=== PATIENT | male | born 1955 | race Two or more races ===

== ENCOUNTER 2020-05-15 09:10 | Inpatient (IN) | payer MEDICAID, OTHER ==
[~2020-05-15] VITALS: Ht 180.3 cm; Wt 84.6 kg
[2020-05-15] MEDS ORDERED: SODIUM CHLORIDE 0.9% 1,000 ML IV ONE (09:58)
[2020-05-15 10:44] LABS: Basophils # (auto) 0.1 10 ^3/uL (0-0.2); Basophils % (auto) 0.6 % (0.0-2.0); Eosinophils # (auto) 0 10 ^3/uL (0-0.8); Eosinophils % (auto) 0.5 % (0.0-7.0); Hematocrit 43.4 % (41.0-53.0); Hemoglobin 14.1 g/dL (13.5-17.5); Lymphocytes # (auto) 0.8 10 ^3/uL (0.4-5.4); Lymphocytes % (auto) 8.7 % (10.0-50.0); Mean Corpuscular Hemoglobin 30.1 pg (28.0-32.0); Mean Corpuscular Hgb Conc. 32.6 g/dL (32.0-36.0); Mean Corpuscular Volume 92.4 fL (80.0-100.0); Monocytes # (auto) 0.6 10 ^3/uL (0-1.3); Monocytes % (auto) 6.4 % (0.0-12.0); Neutrophils # (auto) 7.6 10 ^3/uL (1.6-8.6); Neutrophils % (auto) 83.8 % (37.0-80.0); Nucleated Red Blood Cells % 0.1 %; Platelet Count (auto) 156 10^3/uL (140-450); Red Cell Distribution Width 15.7 % (11.8-14.3); White Blood Cell 9.1 10^3/uL (4.4-10.8)
[2020-05-15 11:05] LABS: Albumin 3.3 g/dL (3.4-5.0); BUN/Creatinine Ratio 10.6; Calcium 8.6 mg/dL (8.5-10.1); Potassium 3.8 mmol/L (3.5-5.1)
[2020-05-15 11:10] LABS: Bilirubin, Total 0.7 mg/dL (0.2-1.0)
[2020-05-15 12:45] LABS: Urine WBC None Seen /hpf (0 - 3)
[2020-05-15 13:01] LABS: Urine Bacteria NONE SEEN /hpf (None Seen); Urine Blood Negative /uL (Negative); Urine Hyaline Cast FEW /lpf (0 - 2); Urine Specific Gravity 1.008 (1.001-1.035)
[2020-05-15] MEDS ORDERED: ASPirin 81 mg TAB PO ONE (13:30)
[2020-05-15] MEDS ORDERED: ENOXAPARIN SOD 80 MG/0.8ML SYRINGE SC ONE (13:30)
[2020-05-15] MEDS ORDERED: MORPHINE SULF INJ 2 MG/ML SYRINGE 1ML IV PRN ×2 (14:30→16:30)
[2020-05-15] MEDS ORDERED: NITROGLYCERIN 0.4 MG SL TAB SL PRN (14:30)
[2020-05-15] MEDS ORDERED: LABETALOL HCL 5 MG/ML 4ML SYRINGE IV ONE (16:15)
[2020-05-15] MEDS ORDERED: DEXTROSE (50%) 50ML SYRG IV PRN (16:30)
[2020-05-15] MEDS ORDERED: ONDANSETRON HCL 4 MG/2 ML VIAL IV PRN (16:30)
[2020-05-15] MEDS ORDERED: traMADol HCL 50 MG TAB PO PRN (16:30)
[2020-05-15] MEDS ORDERED: LACTULOSE 20Gm/30ML SOLN PO PRN (16:30)
[2020-05-15] MEDS ORDERED: TEMAZEPAM 15 MG CAP PO PRN (16:30)
[2020-05-15] MEDS ORDERED: CARVEDILOL 3.125 MG TAB PO ONE (16:30)
[2020-05-15 17:45] VITALS: BP 190/120
[2020-05-15 17:57] VITALS: BP 196/120
[2020-05-15] MEDS ORDERED: hydrALAZINE HCL 20 MG/ML VL IV ONE (18:00)
[2020-05-15] MEDS ORDERED: IBUP200T76 PO (18:18)
[2020-05-15] MEDS ORDERED: MULT-1018 PO (18:18)
[2020-05-15] MEDS: ACCU-CHEK COMFORT CURVE STRIP VI SCH ×2 (18:37→21:36)
[2020-05-15 18:44] VITALS: BP 177/79
--- NOTE | 2020-05-15 19:25 | NUR ---
OPENING SHIFT NOTE Assumed care of patient who is A&O x4. Currently on RA with no s/s of distress. reports headache at this time. Pain management options discussed. PIV in left forearm is intact and patent. Flushed with 10ml NS. Patient is ambulatory without the use of assistive devices at baseline. Bed is in low locked position with side rails up x2. Call light is within reach and patient encouraged to call for assistance when needed. Will continue to monitor for changes PRN.
[2020-05-15 20:00] VITALS: BP 182/90
[2020-05-15] MEDS: ACETAMINOPHEN 500 MG TAB PO PRN (20:32)
[2020-05-15] MEDS: CARVEDILOL 3.125 MG TAB PO SCH (20:32)
[2020-05-15] MEDS: SODIUM CHLOR 0.9% PF (SALINE LOCK) 10ML VIAL/SYR IV SCH (21:26)
[2020-05-15 21:30] VITALS: BP 182/90
[2020-05-15] MEDS ORDERED: ATORVASTATIN 20 MG TAB PO SCH (22:00)
--- NOTE | 2020-05-16 02:54 | NUR ---
URINE SENT TO LAB VIA BULLET SYSTEM.
[2020-05-16 05:02] VITALS: BP 149/101
[2020-05-16] MEDS: SODIUM CHLOR 0.9% PF (SALINE LOCK) 10ML VIAL/SYR IV SCH ×3 (06:00→22:05)
[2020-05-16 06:18] LABS: Basophils # (auto) 0 10 ^3/uL (0-0.2); Basophils % (auto) 0.6 % (0.0-2.0); Eosinophils # (auto) 0.2 10 ^3/uL (0-0.8); Eosinophils % (auto) 2.7 % (0.0-7.0); Hematocrit 44.4 % (41.0-53.0); Hemoglobin 14.7 g/dL (13.5-17.5); Lymphocytes # (auto) 1.3 10 ^3/uL (0.4-5.4); Lymphocytes % (auto) 20.8 % (10.0-50.0); Mean Corpuscular Hemoglobin 30.5 pg (28.0-32.0); Mean Corpuscular Hgb Conc. 33.2 g/dL (32.0-36.0); Mean Corpuscular Volume 91.7 fL (80.0-100.0); Monocytes # (auto) 0.6 10 ^3/uL (0-1.3); Neutrophils # (auto) 4.1 10 ^3/uL (1.6-8.6); Neutrophils % (auto) 66.9 % (37.0-80.0); Nucleated Red Blood Cells % 0.1 %; Platelet Count (auto) 158 10^3/uL (140-450); Red Blood Cells 4.84 10^6/uL (4.5-5.90); Red Cell Distribution Width 15.5 % (11.8-14.3); White Blood Cell 6.2 10^3/uL (4.4-10.8)
[2020-05-16 06:37] LABS: Calcium 8.6 mg/dL (8.5-10.1); Potassium 3.7 mmol/L (3.5-5.1)
[2020-05-16] MEDS: ACCU-CHEK COMFORT CURVE STRIP VI SCH ×4 (06:42→22:08)
[2020-05-16 06:43] LABS: Albumin 3.5 g/dL (3.4-5.0); Magnesium 2.6 mg/dL (1.6-2.6); Phosphorus 3.3 mg/dL (2.5-4.90); Total Protein 7.4 g/dL (6.4-8.2); Uric Acid 9.7 mg/dL (3.5-7.2)
[2020-05-16 07:56] VITALS: BP 162/85
[2020-05-16 09:00] VITALS: BP 162/97
[2020-05-16] MEDS: ASPirin 81 mg TAB PO SCH (09:35)
[2020-05-16] MEDS: ENOXAPARIN SOD 40 MG/0.4 ML SYRINGE SC SCH (09:36)
[2020-05-16] MEDS: CARVEDILOL 3.125 MG TAB PO SCH (09:36)
[2020-05-16] MEDS: hydrALAZINE HCL 20 MG/ML VL IV PRN ×3 (09:37→22:10)
[2020-05-16] MEDS: NITROGLYCERIN 0.2MG/HR TOPICAL PATCH TD SCH (09:37)
[2020-05-16] MEDS ORDERED: FUROSEMIDE 20 MG/2 ML VIAL IV ONE (11:15)
[2020-05-16] MEDS ORDERED: CLOPIDOGREL BISULFATE 75 MG TAB PO ONE (11:15)
--- NOTE | 2020-05-16 12:31 | NUR ---
OPENING SHIFT NOTE: PATIENT AWAKE IN BED, AMBULATED TO BATHROOM. UPDATED ON PLAN OF CARE. A/OX4. RESPIRATIONS EVEN AND UNLABORED. DENIES ANY PAIN OR DISCOMFORT AT THIS TIME. WILL CONTINUE TO MONITOR.
--- NOTE | 2020-05-16 12:34 | NUR ---
CALL FROM MD CORDOVA, UPDATED ON PLAN OF CARE.
[2020-05-16 13:00] VITALS: BP 153/96
[2020-05-16 17:00] VITALS: BP 156/100
--- NOTE | 2020-05-16 17:20 | NUR ---
CALL MADE TO MD Stefania SPENCER TO NOTIFY OF BP.
--- NOTE | 2020-05-16 17:53 | NUR ---
CALL BACK FROM Stefania SPENCER: ORDERS RECEIVED.
[2020-05-16] MEDS: FUROSEMIDE 20 MG/2 ML VIAL IV SCH (18:31)
[2020-05-16] MEDS: amLODIPine BESYLATE 5 MG TAB PO SCH (19:09)
--- NOTE | 2020-05-16 19:10 | NUR ---
Opening Shift Note Assumed care of patient, awake and alert and talkative. No S/S of distress/SOB and denies discomfort and pain. Instructed on POC and to call for assist PRN by second RN able to converse in German; Pt LYNDSEY. This RN will continue to monitor for changes Q1hr and PRN. Bed in low position with HOB in semi-White's position. Nurse call light at pt's side.
--- NOTE | 2020-05-16 19:10 | NUR ---
CARE ENDORSED TO NOC RN.
[2020-05-16] MEDS: CARVEDILOL 12.5 MG TAB PO SCH (22:07)
[2020-05-16] MEDS: ATORVASTATIN 20 MG TAB PO SCH (22:07)
[2020-05-16] MEDS: POTASSIUM CHL 20 Meq TABLET PO SCH (22:07)
[2020-05-16] MEDS: FAMOTIDINE 20 MG TAB PO SCH (22:08)
[2020-05-16] MEDS: ACETAMINOPHEN 500 MG TAB PO PRN (22:11)
[2020-05-16 23:13] VITALS: BP 175/100
[2020-05-17 05:17] VITALS: BP 111/67
[2020-05-17] MEDS: ACCU-CHEK COMFORT CURVE STRIP VI SCH ×4 (06:04→23:07)
[2020-05-17] MEDS: FUROSEMIDE 20 MG/2 ML VIAL IV SCH ×2 (06:29→18:00)
[2020-05-17] MEDS: SODIUM CHLOR 0.9% PF (SALINE LOCK) 10ML VIAL/SYR IV SCH ×3 (06:29→23:06)
[2020-05-17 07:07] LABS: Basophils # (auto) 0 10 ^3/uL (0-0.2); Basophils % (auto) 0.5 % (0.0-2.0); Eosinophils # (auto) 0.2 10 ^3/uL (0-0.8); Eosinophils % (auto) 2.1 % (0.0-7.0); Hematocrit 47.4 % (41.0-53.0); Hemoglobin 15.7 g/dL (13.5-17.5); Lymphocytes # (auto) 1.3 10 ^3/uL (0.4-5.4); Lymphocytes % (auto) 18.1 % (10.0-50.0); Mean Corpuscular Hemoglobin 30.2 pg (28.0-32.0); Mean Corpuscular Hgb Conc. 33.2 g/dL (32.0-36.0); Monocytes # (auto) 0.7 10 ^3/uL (0-1.3); Monocytes % (auto) 9.2 % (0.0-12.0); Neutrophils # (auto) 5.1 10 ^3/uL (1.6-8.6); Neutrophils % (auto) 70.1 % (37.0-80.0); Nucleated Red Blood Cells % 0.1 %; Platelet Count (auto) 213 10^3/uL (140-450); Red Blood Cells 5.21 10^6/uL (4.5-5.90); Red Cell Distribution Width 15.6 % (11.8-14.3); White Blood Cell 7.3 10^3/uL (4.4-10.8)
[2020-05-17 07:09] LABS: Calcium 9.1 mg/dL (8.5-10.1)
[2020-05-17 07:16] LABS: BUN/Creatinine Ratio 16.5
[2020-05-17 08:45] VITALS: BP 128/82
[2020-05-17] MEDS: NITROGLYCERIN 0.2MG/HR TOPICAL PATCH TD SCH (09:57)
[2020-05-17] MEDS: ASPirin 81 mg TAB PO SCH (10:20)
[2020-05-17] MEDS: amLODIPine BESYLATE 5 MG TAB PO SCH (10:21)
[2020-05-17] MEDS: CARVEDILOL 12.5 MG TAB PO SCH ×2 (10:21→23:06)
[2020-05-17] MEDS: ACETYLCYSTEINE ORAL for CIN 20%(200MG/ML) 4ML PO SCH ×2 (10:21→22:00)
[2020-05-17] MEDS: POTASSIUM CHL 20 Meq TABLET PO SCH ×2 (10:21→23:06)
[2020-05-17] MEDS: CLOPIDOGREL BISULFATE 75 MG TAB PO SCH (10:22)
[2020-05-17] MEDS: ENOXAPARIN SOD 40 MG/0.4 ML SYRINGE SC SCH (10:22)
[2020-05-17] MEDS: FAMOTIDINE 20 MG TAB PO SCH ×2 (10:22→23:07)
--- NOTE | 2020-05-17 12:32 | NUR ---
AFTERNOON BP:175/74 MD Orlando SAN MADE AWARE. ORDER FOR O.2 CLONIDINE P.O Q6HR RECEIVED. Addendum: 05/17/20 at 1235 by JL GALLOWAY RN RN -MISTAKEN ENTRY-
[2020-05-17 12:42] VITALS: BP 115/76
[2020-05-17] MEDS ORDERED: cloNIDine HCL 0.1 MG TAB PO PRN (12:45)
[2020-05-17 17:00] VITALS: BP 112/77
--- NOTE | 2020-05-17 19:14 | NUR ---
CARE ENDORSED TO NOC RN.
[2020-05-17 22:00] VITALS: BP 131/88
[2020-05-17] MEDS: ATORVASTATIN 20 MG TAB PO SCH (23:07)
[2020-05-18 05:30] VITALS: BP 118/65
[2020-05-18] MEDS: FUROSEMIDE 20 MG/2 ML VIAL IV SCH ×2 (06:00→18:33)
[2020-05-18] MEDS: SODIUM CHLOR 0.9% PF (SALINE LOCK) 10ML VIAL/SYR IV SCH ×3 (06:00→22:01)
[2020-05-18 06:21] LABS: Basophils # (auto) 0.1 10 ^3/uL (0-0.2); Basophils % (auto) 0.7 % (0.0-2.0); Eosinophils # (auto) 0.2 10 ^3/uL (0-0.8); Eosinophils % (auto) 2.5 % (0.0-7.0); Hematocrit 46.4 % (41.0-53.0); Hemoglobin 15.3 g/dL (13.5-17.5); Lymphocytes # (auto) 1.6 10 ^3/uL (0.4-5.4); Lymphocytes % (auto) 21.6 % (10.0-50.0); Mean Corpuscular Hemoglobin 30.1 pg (28.0-32.0); Mean Corpuscular Volume 91.2 fL (80.0-100.0); Monocytes # (auto) 0.7 10 ^3/uL (0-1.3); Monocytes % (auto) 8.9 % (0.0-12.0); Neutrophils % (auto) 66.3 % (37.0-80.0); Nucleated Red Blood Cells % 0.1 %; Platelet Count (auto) 201 10^3/uL (140-450); Red Blood Cells 5.09 10^6/uL (4.5-5.90); Red Cell Distribution Width 15.7 % (11.8-14.3); White Blood Cell 7.5 10^3/uL (4.4-10.8)
[2020-05-18 06:40] LABS: Calcium 9.1 mg/dL (8.5-10.1); Potassium 4.1 mmol/L (3.5-5.1)
[2020-05-18 06:41] LABS: INR 1.13 (0.9-1.15); Partial Thromboplastin Time 30.5 sec (23.64-32.05)
[2020-05-18] MEDS: ACCU-CHEK COMFORT CURVE STRIP VI SCH ×4 (06:52→22:03)
[2020-05-18] MEDS: ENOXAPARIN SOD 40 MG/0.4 ML SYRINGE SC SCH (07:38)
--- NOTE | 2020-05-18 08:22 | NUR ---
Patient left to veterinarian laboratory animal care.
[2020-05-18 08:28] VITALS: BP 123/80
[2020-05-18] MEDS ORDERED: LIDOCAINE 2%HCL (LOCAL ANESTH.) INJ 20ML MDV ONE (08:54)
[2020-05-18] MEDS ORDERED: IODIXANOL 320MG/ML 100ML BTL IV ONE ×2 (08:54→09:11)
[2020-05-18] MEDS ORDERED: VERAPAMIL 2.5MG/ML INJ 2ML VIAL IV ONE (09:09)
[2020-05-18] MEDS ORDERED: ANGIOMAX 250 MG VIAL IV ONE (09:09)
[2020-05-18] MEDS ORDERED: HEPARIN SODIUM (PORCINE) 5000 UNITS/ML 1ML VIAL ONE (09:09)
[2020-05-18] MEDS ORDERED: fentaNYL CITRATE 100 MCG/2 ML VL ONE (09:10)
[2020-05-18] MEDS ORDERED: SODIUM CHL 0.9% 50 ML ONE (09:10)
[2020-05-18] MEDS ORDERED: MIDAZOLAM HCL 1MG/1ML-2 ML VIAL ONE (09:10)
[2020-05-18] MEDS ORDERED: CLOPIDOGREL BISULFATE 75 MG TAB ONE (09:48)
[2020-05-18] MEDS ORDERED: ASPirin 81 mg TAB ONE (09:49)
[2020-05-18] MEDS: ASPirin 81 mg TAB PO SCH (10:00)
[2020-05-18] MEDS: NITROGLYCERIN 0.2MG/HR TOPICAL PATCH TD SCH (10:00)
[2020-05-18] MEDS: CLOPIDOGREL BISULFATE 75 MG TAB PO SCH (10:00)
[2020-05-18] MEDS ORDERED: FURO1TAB31 PO (10:50)
[2020-05-18] MEDS ORDERED: ASPI81CH43 PO (10:50)
[2020-05-18] MEDS ORDERED: CLOP75TA28 PO (10:50)
[2020-05-18] MEDS ORDERED: AML5T PO (10:50)
[2020-05-18] MEDS ORDERED: ATOR20TA50 PO (10:50)
[2020-05-18] MEDS ORDERED: CAR125T PO (10:50)
[2020-05-18] MEDS ORDERED: POTA-220 PO (10:50)
--- NOTE | 2020-05-18 11:00 | NUR ---
Per Sabra BATTING MACHINE OPERATOR INSULATION, Patient has to monitor over night.
--- NOTE | 2020-05-18 11:15 | NUR ---
Patient came back from paper slitter, awake, alert and verbally response. No respiratory distress noted. Skin is warm and dry to touch. S/P LHC, accessed to right wrist with vac band on it. Will continue to monitor. Denied any pain at this time. Placed a call light within reach.
[2020-05-18] MEDS: CARVEDILOL 12.5 MG TAB PO SCH ×2 (11:26→22:01)
[2020-05-18] MEDS: POTASSIUM CHL 20 Meq TABLET PO SCH ×2 (11:26→22:02)
[2020-05-18] MEDS: amLODIPine BESYLATE 5 MG TAB PO SCH (11:26)
[2020-05-18] MEDS: FAMOTIDINE 20 MG TAB PO SCH ×2 (11:27→22:03)
[2020-05-18] MEDS: ACETYLCYSTEINE ORAL for CIN 20%(200MG/ML) 4ML PO SCH ×2 (11:32→22:02)
--- NOTE | 2020-05-18 12:24 | NUR ---
Received a call from Sabra COOK stated patient is cleared from Dr. Vazquez (Cardiology) standpoint.
[2020-05-18 12:56] VITALS: BP 123/90
--- NOTE | 2020-05-18 14:00 | NUR ---
EEG COMPLETED AT BEDSIDE. PRIMARY RN CHELSEA KHALIL.
[2020-05-18] MEDS ORDERED: SODIUM CHLORIDE 0.9% 500 ML IV ONE (14:15)
--- NOTE | 2020-05-18 14:28 | NUR ---
Dr. Mendiola pagesergio for DC clearance, spoke to Asa. Awaiting to call back.
--- NOTE | 2020-05-18 14:29 | NUR ---
Dr. Shook paged regarding DC clearance. Awaiting to call back.
--- NOTE | 2020-05-18 14:30 | NUR ---
Pt declined PT tx citing fatigue. Addendum: 05/18/20 at 1620 by Jackson Reilly BAKER BREAD Amended: Links added.
--- NOTE | 2020-05-18 14:35 | NUR ---
Received a call from Dr. Mendiola stated patient needs to be monitor for BUN and CR , will recheck labs tomorrow.
[2020-05-18] MEDS ORDERED: SODIUM CHLORIDE 0.9% 1,000 ML IV ONE (14:45)
[2020-05-18] MEDS ORDERED: FUROSEMIDE 40 MG/4 ML VIAL IV ONE (14:45)
--- NOTE | 2020-05-18 16:06 | NUR ---
Nutrition Assessment Notes Please refer to link for full assessment notes. Est Energy needs: 8731-4224 kcals (20-23 kcal/kgBW) Est Protein needs: 84-92 gms/day (1.0-1.1 gm/kgBW) Will continue to monitor and reassess prn. Addendum: 05/18/20 at [address] Amended: Links added. Addendum: 05/18/20 at [address] Please note corrected est Protein needs: 50-63 gms/day (0.6-0.75 g/kgBW)
--- NOTE | 2020-05-18 16:45 | NUR ---
Medication delivered at bedside by [facility] pharmacy.
[2020-05-18 17:00] VITALS: BP 123/88
--- NOTE | 2020-05-18 19:21 | NUR ---
Opening Shift Note Assumed care of patient after receiving report from GIL Hayes. Patient is awake and alert with no S/S of distress/SOB or pain. Call light within reach, bed in lowest locked position x2 side rails. Instructed on POC and to call for assist PRN, will continue to monitor for changes Q1hr and PRN.
[2020-05-18 21:56] VITALS: BP 132/71
[2020-05-18] MEDS: ATORVASTATIN 20 MG TAB PO SCH (22:02)
--- NOTE | 2020-05-18 22:40 | NUR ---
Riley BARAHONA at bedside Dr. Lin at bedside speaking with patient regarding EEG. Per Dr. Lin, patient is not cleared from Neuro standpoint to discharge and will need to stay in hospital and repeat EEG.
--- NOTE | 2020-05-19 00:26 | NUR ---
Spoke with Nicole BARAHONA regarding patients continued stay. Updated doctor on neuro not clearing patient for discharge and wanting a repeat EEG.
[2020-05-19 05:00] VITALS: BP 124/60
[2020-05-19] MEDS: SODIUM CHLOR 0.9% PF (SALINE LOCK) 10ML VIAL/SYR IV SCH ×3 (06:07→21:26)
[2020-05-19] MEDS: FUROSEMIDE 20 MG/2 ML VIAL IV SCH ×3 (06:07→18:49)
[2020-05-19 06:27] LABS: Basophils # (auto) 0 10 ^3/uL (0-0.2); Basophils % (auto) 0.5 % (0.0-2.0); Eosinophils # (auto) 0.2 10 ^3/uL (0-0.8); Eosinophils % (auto) 1.8 % (0.0-7.0); Hematocrit 49.9 % (41.0-53.0); Hemoglobin 16.8 g/dL (13.5-17.5); Lymphocytes # (auto) 1.6 10 ^3/uL (0.4-5.4); Lymphocytes % (auto) 16.1 % (10.0-50.0); Mean Corpuscular Hemoglobin 30.8 pg (28.0-32.0); Mean Corpuscular Hgb Conc. 33.6 g/dL (32.0-36.0); Mean Corpuscular Volume 91.6 fL (80.0-100.0); Monocytes # (auto) 0.7 10 ^3/uL (0-1.3); Monocytes % (auto) 7.2 % (0.0-12.0); Neutrophils # (auto) 7.2 10 ^3/uL (1.6-8.6); Neutrophils % (auto) 74.4 % (37.0-80.0); Nucleated Red Blood Cells % 0.1 %; Platelet Count (auto) 234 10^3/uL (140-450); Red Blood Cells 5.44 10^6/uL (4.5-5.90); White Blood Cell 9.6 10^3/uL (4.4-10.8)
[2020-05-19] MEDS: ACCU-CHEK COMFORT CURVE STRIP VI SCH ×4 (06:38→21:50)
[2020-05-19 06:50] LABS: Calcium 9.6 mg/dL (8.5-10.1); Potassium 4.3 mmol/L (3.5-5.1)
[2020-05-19 06:52] LABS: BUN/Creatinine Ratio 19.9
--- NOTE | 2020-05-19 08:46 | NUR ---
Per Abhi HARDEN, patient does not qualify for PT, order discontinue per protocol.
[2020-05-19] MEDS: ENOXAPARIN SOD 40 MG/0.4 ML SYRINGE SC SCH (09:12)
[2020-05-19] MEDS: CLOPIDOGREL BISULFATE 75 MG TAB PO SCH (09:12)
[2020-05-19] MEDS: ASPirin 81 mg TAB PO SCH (09:12)
[2020-05-19] MEDS: amLODIPine BESYLATE 5 MG TAB PO SCH (09:13)
[2020-05-19] MEDS: NITROGLYCERIN 0.2MG/HR TOPICAL PATCH TD SCH (09:13)
[2020-05-19] MEDS: CARVEDILOL 12.5 MG TAB PO SCH ×2 (09:13→21:42)
[2020-05-19] MEDS: FAMOTIDINE 20 MG TAB PO SCH ×2 (09:15→21:28)
[2020-05-19] MEDS: POTASSIUM CHL 20 Meq TABLET PO SCH ×2 (09:15→21:28)
[2020-05-19 10:00] VITALS: BP 109/74
--- NOTE | 2020-05-19 11:27 | NUR ---
Assessment Patient is a 65- year-old male who is alert and oriented. Prior to admission patient lived home with family and function independently. Per patient he can care for her own ADLs. Per patient he does not have any medical equipment now. Per patient he will return to his prior living arrangements post discharge and family will transport him home. Patient PCP is Dr. Golden. Advise patient there is a social service consult for home health safety evaluation. Informed patient clinical information will be faxed to [employer] the [facility]. Informed patient he has the right to participate in all discharge planning. Patient verbalized understanding and agreed to discharge plan. Faxed clinical information to [employer] the [facility] and [facility]. Per Carole with [email or web address] [phone] patient has been accepted and service to start within 24-48hrs upon d/c day. Addendum: 05/19/20 at 1129 by ALY HARDEN Amended: Links added.
[2020-05-19 12:00] LABS: Urine WBC None Seen /hpf (0 - 3)
--- NOTE | 2020-05-19 12:12 | NUR ---
UA sent to the lab.
[2020-05-19] MEDS: SODIUM CHLORIDE 0.9% 1,000 ML IV SCH (12:13)
[2020-05-19 12:14] LABS: Urine Bacteria NONE SEEN /hpf (None Seen); Urine Blood Negative /uL (Negative)
[2020-05-19 12:51] VITALS: BP 112/69
--- NOTE | 2020-05-19 13:37 | NUR ---
Obtain authorization from [facility] for [facility] [id number].
--- NOTE | 2020-05-19 14:49 | NUR ---
Called MRI regarding MRI brain have to be read. Tech made aware.
--- NOTE | 2020-05-19 15:11 | NUR ---
MRI brain resulted. Placed in the chart.
--- NOTE | 2020-05-19 15:47 | NUR ---
Left a message to Dr. Alanna Domingo regarding patient's daughter wants to get an update.
--- NOTE | 2020-05-19 16:45 | NUR ---
Informed CN, regarding unable to get IV, need a new one. CN aware, will come.
[2020-05-19 17:11] VITALS: BP 120/65
[2020-05-19 17:19] LABS: BUN/Creatinine Ratio 20.5; Calcium 9.3 mg/dL (8.5-10.1); Potassium 4.5 mmol/L (3.5-5.1)
--- NOTE | 2020-05-19 19:10 | NUR ---
Opening Shift Note Assumed care of patient after receiving report from niraj Hayes RN. Patient is awake and alert with no S/S of distress/SOB or pain. Call light within reach, bed in lowest locked position x2 side rails, HOB flat with patient resting on side. Instructed on POC and to call for assist PRN, will continue to monitor for changes Q1hr and PRN.
[2020-05-19] MEDS: ATORVASTATIN 20 MG TAB PO SCH (21:28)
--- NOTE | 2020-05-19 21:34 | NUR ---
Riley at bedside Riley BARAHONA at bedside with patient reviewing EEG. Updated Riley that MRI report in chart.
--- NOTE | 2020-05-19 21:45 | NUR ---
Moqattash rounding on patient.
[2020-05-19 22:00] VITALS: BP 151/96
--- NOTE | 2020-05-20 01:34 | NUR ---
IV DC'd Patient pump was alarming, checked on alarm and patient. IV to the right forearm was pulled out, IV got caught as patient moved and was dislodged. No trauma to site noted.
--- NOTE | 2020-05-20 01:37 | NUR ---
IV insertion After explaining to patient via sailing officer, need for IV access, patient verbalized understanding and allowed placement. IV access obtained, via clean sterile technique by inserting 22 gauge catheter at the right forearm after 1 attempt. IV secured properly. No trauma to site. Patient tolerated well.
[2020-05-20 05:00] VITALS: BP 136/94
[2020-05-20 05:09] LABS: Basophils # (auto) 0 10 ^3/uL (0-0.2); Basophils % (auto) 0.5 % (0.0-2.0); Eosinophils # (auto) 0.1 10 ^3/uL (0-0.8); Eosinophils % (auto) 1.6 % (0.0-7.0); Hematocrit 46.7 % (41.0-53.0); Hemoglobin 15.8 g/dL (13.5-17.5); Lymphocytes # (auto) 1.4 10 ^3/uL (0.4-5.4); Mean Corpuscular Hemoglobin 30.6 pg (28.0-32.0); Mean Corpuscular Hgb Conc. 33.8 g/dL (32.0-36.0); Mean Corpuscular Volume 90.5 fL (80.0-100.0); Monocytes # (auto) 0.7 10 ^3/uL (0-1.3); Monocytes % (auto) 8.7 % (0.0-12.0); Neutrophils % (auto) 72.2 % (37.0-80.0); Nucleated Red Blood Cells % 0.1 %; Platelet Count (auto) 204 10^3/uL (140-450); Red Blood Cells 5.16 10^6/uL (4.5-5.90); Red Cell Distribution Width 15.3 % (11.8-14.3); White Blood Cell 8.4 10^3/uL (4.4-10.8)
[2020-05-20 05:29] LABS: Calcium 9.1 mg/dL (8.5-10.1); Potassium 4.1 mmol/L (3.5-5.1)
[2020-05-20 05:30] LABS: BUN/Creatinine Ratio 20.5
[2020-05-20] MEDS: FUROSEMIDE 20 MG/2 ML VIAL IV SCH (06:00)
[2020-05-20] MEDS: SODIUM CHLOR 0.9% PF (SALINE LOCK) 10ML VIAL/SYR IV SCH ×2 (06:00→14:00)
[2020-05-20] MEDS: ACCU-CHEK COMFORT CURVE STRIP VI SCH ×3 (06:01→17:00)
[2020-05-20] MEDS: SODIUM CHLORIDE 0.9% 1,000 ML IV SCH (06:02)
--- NOTE | 2020-05-20 08:00 | NUR ---
OPENING SHIFT NOTE ASSUMED CARE OF PATIENT AWAKE AND AGITATED. PATIENT IS FULLY DRESSED AND STATING THAT HE IS GOING HOME. EXPLAINED TO PATIENT THAT THERE IS NO ORDER FOR DISCHARGE AND THAT HE NEEDS TO WAIT FOR THE DOCTOR. PATIENT STATING HE WANTS TO GO HOME NOW. EXPLAINED THE IMPORTANCE OF HIM WAITING FOR A PRESCRIPTION TO MAINTAIN HIS NEWLY PLACED STENT. PATIENT IS UNSATISFIED WITH THIS. BED IS IN LOWEST, LOCKED POSITION WITH SIDE RAILS UP X2 AND CALL LIGHT WITHIN REACH. WILL CONTINUE TO MONITOR Q1H AND PRN.
[2020-05-20 09:00] VITALS: BP 158/81
[2020-05-20] MEDS: amLODIPine BESYLATE 5 MG TAB PO SCH (09:36)
[2020-05-20] MEDS: CARVEDILOL 12.5 MG TAB PO SCH (09:36)
[2020-05-20] MEDS: ASPirin 81 mg TAB PO SCH (09:36)
[2020-05-20] MEDS: FAMOTIDINE 20 MG TAB PO SCH (09:36)
[2020-05-20] MEDS: POTASSIUM CHL 20 Meq TABLET PO SCH (09:36)
[2020-05-20] MEDS: ENOXAPARIN SOD 40 MG/0.4 ML SYRINGE SC SCH (09:37)
[2020-05-20] MEDS: CLOPIDOGREL BISULFATE 75 MG TAB PO SCH (09:37)
[2020-05-20] MEDS: NITROGLYCERIN 0.2MG/HR TOPICAL PATCH TD SCH (09:37)
--- NOTE | 2020-05-20 10:19 | NUR ---
FAMILY RECEIVED CALL FROM DAUGHTER WENCESLAO. SHE IS DEMANDING TO KNOW WHAT TIME THE DOCTOR WILL ROUND TO DISCHARGE HER FATHER. EXPLAINED TO HER THAT THE DOCTORS HAVE NO SET TIMES TO ROUND AND THAT I WOULD NOTIFY HER SOON DISCHARGE ORDERS ARE PLACED. SHE STATES "WELL JUST SO YOU KNOW WE ARE GIVING THE DOCTOR A CHANCE AND I WILL BE CALLING YOU BACK IN THE AFTERNOON AND YOU BETTER HAVE THE PAPERWORK READY FOR HIM TO LEAVE." EXPLAINED RISKS AND BENEFITS OF LEAVING AMA TO WHICH SHE WAS UNRECEPTIVE TO. WILL CONTINUE CARE.
--- NOTE | 2020-05-20 11:39 | NUR ---
PAGED PAGE OUT TO DR SPENCER FOR DISCHARGE ORDERS. AWAITING CALL BACK. WILL CONTINUE CARE.
[2020-05-20 12:56] VITALS: BP 129/72
--- NOTE | 2020-05-20 16:28 | NUR ---
DISCHARGE CLEARANCE THIS RN OBTAINED DISCHARGE CLEARANCE FROM DR KELLEY, DR REDMOND, DR VALLEJO, AND JOYCE PÉREZ. DR Jose L SPENCER PAGED FOR DISCHARGE ORDERS.
[2020-05-20 17:00] VITALS: BP 141/79
[2020-05-20 19:34] VITALS: BP 129/72
== END 2020-05-20 20:05 | disposition home or self-care (01) | DRG 174 ==
LOC: ER 09:10 → EDBD 09:10 → TELE-WESTW 09:11
PROVIDERS: ADMIT Internal Medicine; ATTEND Internal Medicine
PROC: 027034Z Dilation of Coronary Artery, One Artery with Drug-eluting Intraluminal Device, Percutaneous Approach (ICD-10-PCS; principal; 2020-05-18)
PROC: 4A023N7 Measurement of Cardiac Sampling and Pressure, Left Heart, Percutaneous Approach (ICD-10-PCS; 2020-05-18)
PROC: B211YZZ Fluoroscopy of Multiple Coronary Arteries using Other Contrast (ICD-10-PCS; 2020-05-18)
PROC: B215YZZ Fluoroscopy of Left Heart using Other Contrast (ICD-10-PCS; 2020-05-18)
DX: I21.4 Non-ST elevation (NSTEMI) myocardial infarction (principal); I63.9 Cerebral infarction, unspecified; E78.5 Hyperlipidemia, unspecified; E11.51 Type 2 diabetes mellitus with diabetic peripheral angiopathy without gangrene; N18.3 Chronic kidney disease, stage 3 (moderate); I50.31 Acute diastolic (congestive) heart failure; I13.0 Hypertensive heart and chronic kidney disease with heart failure and stage 1 through stage 4 chronic kidney disease, or unspecified chronic kidney disease; G93.1 Anoxic brain damage, not elsewhere classified; G93.89 Other specified disorders of brain; N17.0 Acute kidney failure with tubular necrosis; G93.41 Metabolic encephalopathy; E11.22 Type 2 diabetes mellitus with diabetic chronic kidney disease; E11.42 Type 2 diabetes mellitus with diabetic polyneuropathy; E86.0 Dehydration; F17.200 Nicotine dependence, unspecified, uncomplicated; I25.10 Atherosclerotic heart disease of native coronary artery without angina pectoris; I87.2 Venous insufficiency (chronic) (peripheral); E07.9 Disorder of thyroid, unspecified; R56.9 Unspecified convulsions; Z79.82 Long term (current) use of aspirin; Z79.899 Other long term (current) drug therapy; Z86.73 Personal history of transient ischemic attack (TIA), and cerebral infarction without residual deficits; Z91.19 Patient's noncompliance with other medical treatment and regimen
CPT/HCPCS: 36415; 70450; 70551; 71045; 76775; 80048; 80053; 80061; 81001; 82043; 82306; 82550; 82570; 82962; 83036; 83735; 83880; 83935; 84100; 84300; 84439; 84443; 84484; 84550; 85025; 85610; 85652; 85730; 86141; 92928; 93005; 93306; 93458; 93886; 93926; 95819; 96361; 96372; 96374; 97110; 97116; 97163; 97530; 99152; 99153; A4565; C1874; C1887; G0378; J2250; J3490; Q9967

== ENCOUNTER 2020-11-12 19:24 | Emergency (ER) | payer MEDICAID ==
[~2020-11-12] VITALS: Ht 182.9 cm; Wt 81.6 kg
[~2020-11-12 19:24] MED LIST: AML5T PO; ASPI81CH43 PO; ATOR20TA50 PO; CAR125T PO; CLOP75TA28 PO; FURO1TAB31 PO; MULT-1018 PO; POTA-220 PO
[2020-11-12] MEDS ORDERED: LORazepam 2MG/ML-1ML VIAL IV ONE (20:15)
[2020-11-12] MEDS ORDERED: SODIUM CHLORIDE 0.9% 1,000 ML IVB ONE (20:15)
[2020-11-12 21:06] LABS: Basophils # (auto) 0 10 ^3/uL (0-0.2); Basophils % (auto) 0.3 % (0.0-2.0); Eosinophils # (auto) 0.1 10 ^3/uL (0-0.8); Eosinophils % (auto) 0.8 % (0.0-7.0); Hematocrit 42.8 % (41.0-53.0); Hemoglobin 14.5 g/dL (13.5-17.5); Lymphocytes # (auto) 0.9 10 ^3/uL (0.4-5.4); Mean Corpuscular Hemoglobin 30.6 pg (28.0-32.0); Mean Corpuscular Volume 90.1 fL (80.0-100.0); Monocytes # (auto) 0.6 10 ^3/uL (0-1.3); Monocytes % (auto) 6.3 % (0.0-12.0); Neutrophils # (auto) 8.5 10 ^3/uL (1.6-8.6); Neutrophils % (auto) 83.6 % (37.0-80.0); Platelet Count (auto) 133 10^3/uL (140-450); Red Blood Cells 4.75 10^6/uL (4.5-5.90); Red Cell Distribution Width 14.9 % (11.8-14.3); White Blood Cell 10.2 10^3/uL (4.4-10.8)
[2020-11-12 21:19] LABS: Albumin 3.3 g/dL (3.4-5.0); Calcium 7.8 mg/dL (8.5-10.1); Potassium 3.8 mmol/L (3.5-5.1)
[2020-11-12 21:28] LABS: BUN/Creatinine Ratio 11.8; Bilirubin, Total 0.5 mg/dL (0.2-1.0); Total Protein 6.9 g/dL (6.4-8.2)
[2020-11-12 21:31] VITALS: BP 150/99
[2020-11-12] MEDS ORDERED: InsuLIN REG 1unit/0.01ml Soln (100units/ml) IV ONE (22:00)
== END 2020-11-12 23:00 | disposition home or self-care (01) ==
LOC: ER 19:24 → EDBD 19:24 → ER 23:00
DX: R56.9 Unspecified convulsions (principal); R41.82 Altered mental status, unspecified; F10.239 Alcohol dependence with withdrawal, unspecified; R73.9 Hyperglycemia, unspecified; E78.5 Hyperlipidemia, unspecified; Z86.73 Personal history of transient ischemic attack (TIA), and cerebral infarction without residual deficits; Y90.8 Blood alcohol level of 240 mg/100 ml or more
CPT/HCPCS: 36415; 70450; 80053; 80320; 82962; 85025; 93005; 96361; 96374; 96375; 99285; J1815; J2060; J7030

== ENCOUNTER → 2021-01-20 | Outpatient (CLI) | payer MEDICAID ==
[~2021-01-20] MED LIST changes: +ADENOSINE 90 MG/30 ML INJ IV ONE
== END | disposition home or self-care (01) ==
LOC: Rad HDHVI 10:56
PROVIDERS: ATTEND Internal Medicine
DX: I08.0 Rheumatic disorders of both mitral and aortic valves (principal)
CPT/HCPCS: 93306

== ENCOUNTER → 2021-01-21 | Outpatient (CLI) | payer MEDICAID ==
[~2021-01-21] VITALS: Ht 180.3 cm; Wt 83.5 kg
[~2021-01-21] MED LIST changes: +ADENOSINE 70 MG in GIVE UN-DILUTED 0 ML IV ONE
== END | disposition home or self-care (01) ==
LOC: Rad HDHVI 08:49
PROVIDERS: ATTEND Internal Medicine
DX: I25.10 Atherosclerotic heart disease of native coronary artery without angina pectoris (principal); I10 Essential (primary) hypertension; I42.9 Cardiomyopathy, unspecified; E78.5 Hyperlipidemia, unspecified; I25.2 Old myocardial infarction; E11.9 Type 2 diabetes mellitus without complications
CPT/HCPCS: 78452; 93005; 96374; 96375; A9500; J0153

== ENCOUNTER 2023-05-05 09:27 | Inpatient (IN) | payer MEDICARE, MEDICAID ==
[~2023-05-05] VITALS: Ht 185.4 cm; Wt 80.0 kg
[~2023-05-05 09:27] MED LIST changes: -ADENOSINE 70 MG in GIVE UN-DILUTED 0 ML IV ONE; -ADENOSINE 90 MG/30 ML INJ IV ONE
[2023-05-05] MEDS ORDERED: LABETALOL HCL 5 MG/ML 4ML SYRINGE IV ONE (10:00)
[2023-05-05 10:08] LABS: Basophils # (auto) 0 10 ^3/uL (0-0.2); Basophils % (auto) 0.4 % (0.0-2.0); Eosinophils # (auto) 0 10 ^3/uL (0-0.8); Eosinophils % (auto) 0.4 % (0.0-7.0); Hematocrit 46.9 % (41.0-53.0); Hemoglobin 15.7 g/dL (13.5-17.5); Lymphocytes # (auto) 0.8 10 ^3/uL (0.4-5.4); Lymphocytes % (auto) 8.7 % (10.0-50.0); Mean Corpuscular Hgb Conc. 33.6 g/dL (32.0-36.0); Mean Corpuscular Volume 92.3 fL (80.0-100.0); Monocytes # (auto) 0.6 10 ^3/uL (0-1.3); Monocytes % (auto) 5.7 % (0.0-12.0); Neutrophils # (auto) 8.1 10 ^3/uL (1.6-8.6); Neutrophils % (auto) 84.8 % (37.0-80.0); Nucleated Red Blood Cells % 0.3 %; Red Blood Cells 5.08 10^6/uL (4.5-5.90); Red Cell Distribution Width 16.6 % (11.8-14.3); White Blood Cell 9.6 10^3/uL (4.4-10.8)
[2023-05-05] MEDS ORDERED: SODIUM CHLORIDE 0.9% 1,000 ML IV SCH (13:15)
[2023-05-05] MEDS ORDERED: MORPHINE SULFATE INJ 2 MG/ml SYRG IV PRN (13:15)
[2023-05-05] MEDS ORDERED: ONDANSETRON HCL 4 MG/2 ML VIAL IV PRN (13:15)
[2023-05-05 13:22] LABS: Albumin 3.4 g/dL (3.4-5.0); Calcium 8.5 mg/dL (8.5-10.1)
[2023-05-05 13:26] LABS: BUN/Creatinine Ratio 15.5 (10.0-20.0); Total Protein 6.9 g/dL (6.4-8.2)
[2023-05-05] MEDS ORDERED: DEXTROSE (50%) 50ML SYRG IV PRN (13:30)
[2023-05-05 14:29] LABS: Albumin 3.4 g/dL (3.4-5.0); Anion Gap 5 (5-15); Blood Urea Nitrogen 22 mg/dL (7-18); Calcium 8.4 mg/dL (8.5-10.1); Carbon Dioxide 28 mmol/L (21-32); Chloride 108 mmol/L (98-107); Glucose 116 mg/dL (74-106); Potassium 3.8 mmol/L (3.5-5.1); Sodium 141 mmol/L (136-145)
[2023-05-05 14:32] LABS: Alanine Aminotransferase 23 U/L (16-61); BUN/Creatinine Ratio 15.1 (10.0-20.0); GFR African American 62 mL/min; GFR Non-African American 51 mL/min
[2023-05-05 14:34] LABS: Alkaline Phosphatase 80 U/L (45-117); Aspartate Aminotransferase 21 U/L (15-37); Bilirubin, Total 1.1 mg/dL (0.2-1.0); Phosphorus 3.5 mg/dL (2.5-4.90); Total Protein 6.3 g/dL (6.4-8.2)
[2023-05-05 14:37] LABS: INR 1.18 (0.9-1.15)
[2023-05-05 15:16] LABS: Blood Alcohol < 3.0 mg/dL (<10)
[2023-05-05] MEDS ORDERED: hydrALAZINE HCL 20 MG/ML VL IV ONE (16:00)
[2023-05-05] MEDS: SODIUM CHLORIDE 0.9% 1,000 ML IV SCH (16:06)
[2023-05-05] MEDS: ENOXAPARIN SOD 40 MG/0.4 ML SYRINGE SC SCH (16:06)
[2023-05-05 16:27] LABS: Urine Bacteria NONE SEEN /hpf (None Seen); Urine Blood Negative /uL (Negative); Urine Specific Gravity 1.013 (1.001-1.035); Urine WBC 1 /hpf (0 - 3)
[2023-05-05 16:45] LABS: Alcohol, Urine < 3.0 mg/dL (0-10); Amphetamine Screen, Urine NEGATIVE (NEGATIVE); Barbiturate Scree,Urine NEGATIVE (NEGATIVE); Benzodiazephine Screen, Urine NEGATIVE (NEGATIVE); Cocaine Screen, Urine NEGATIVE (NEGATIVE); Creatinine, Urine 100 mg/dL (30.0-125.0); Sodium Urine 68 mmol/L (40-220)
[2023-05-05 18:14] LABS: Cannabinoid Screen, Urine NEGATIVE (NEGATIVE); Opiate Scree,Urine NEGATIVE (NEGATIVE); Phencyclidine Screen, Urine NEGATIVE (NEGATIVE)
[2023-05-05] MEDS: ACCU-CHEK COMFORT CURVE STRIP VI SCH (18:55)
[2023-05-05] MEDS: InsuLIN REG 1unit/0.01ml Soln (100units/ml) SC SCH (18:59)
[2023-05-05] MEDS ORDERED: LORazepam 2MG/ML-1ML VIAL IV PRN (19:15)
[2023-05-05] MEDS: hydrALAZINE HCL 20 MG/ML VL IV PRN (20:25)
[2023-05-05 21:49] LABS: Free T4 (Free Thyroxine) 0.86 ng/dL (0.89-1.76)
[2023-05-05] MEDS: METOPROLOL TARTRATE 50 MG TAB PO SCH (22:09)
[2023-05-05] MEDS: ATORVASTATIN 20 MG TAB PO SCH (22:09)
[2023-05-06] MEDS: InsuLIN REG 1unit/0.01ml Soln (100units/ml) SC SCH ×5 (01:59→23:27)
[2023-05-06] MEDS: ACCU-CHEK COMFORT CURVE STRIP VI SCH ×5 (01:59→23:24)
[2023-05-06] MEDS: SODIUM CHLORIDE 0.9% 1,000 ML IV SCH (02:00)
[2023-05-06] MEDS: hydrALAZINE HCL 20 MG/ML VL IV PRN (02:26)
[2023-05-06 05:10] LABS: Basophils # (auto) 0 10 ^3/uL (0-0.2); Basophils % (auto) 0.4 % (0.0-2.0); Eosinophils # (auto) 0 10 ^3/uL (0-0.8); Eosinophils % (auto) 0.5 % (0.0-7.0); Hematocrit 44.7 % (41.0-53.0); Hemoglobin 15.3 g/dL (13.5-17.5); Lymphocytes # (auto) 1.1 10 ^3/uL (0.4-5.4); Lymphocytes % (auto) 13.5 % (10.0-50.0); Mean Corpuscular Hgb Conc. 34.2 g/dL (32.0-36.0); Mean Corpuscular Volume 90.6 fL (80.0-100.0); Monocytes # (auto) 0.6 10 ^3/uL (0-1.3); Monocytes % (auto) 7.6 % (0.0-12.0); Neutrophils # (auto) 6.1 10 ^3/uL (1.6-8.6); Nucleated Red Blood Cells % 0.1 %; Red Blood Cells 4.94 10^6/uL (4.5-5.90); Red Cell Distribution Width 16.8 % (11.8-14.3); White Blood Cell 7.8 10^3/uL (4.4-10.8)
[2023-05-06 05:42] LABS: Albumin 3.3 g/dL (3.4-5.0); Calcium 8.8 mg/dL (8.5-10.1); Potassium 3.4 mmol/L (3.5-5.1)
[2023-05-06 05:47] LABS: BUN/Creatinine Ratio 14.5 (10.0-20.0); Bilirubin, Total 1.3 mg/dL (0.2-1.0); Total Protein 6.9 g/dL (6.4-8.2)
[2023-05-06 07:06] LABS: RPR Non Reactive (Non Reactive)
[2023-05-06] MEDS ORDERED: POTASSIUM CHL 20 Meq TABLET PO ONE (08:00)
[2023-05-06] MEDS ORDERED: FUROSEMIDE 40 MG/4 ML VIAL IV ONE (08:00)
[2023-05-06] MEDS: PANTOPRAZOLE 40 MG/10 ML VIAL INJ IV SCH (10:00)
[2023-05-06] MEDS: ENOXAPARIN SOD 40 MG/0.4 ML SYRINGE SC SCH (10:00)
[2023-05-06] MEDS: ASPirin 81 mg TAB PO SCH (10:00)
[2023-05-06] MEDS: NIFEdipine ER 30 MG TAB PO SCH (10:00)
[2023-05-06] MEDS: METOPROLOL TARTRATE 50 MG TAB PO SCH ×2 (10:00→21:26)
[2023-05-06] MEDS ORDERED: hydrALAZINE HCL 20 MG/ML VL IV ONE (10:30)
[2023-05-06] MEDS ORDERED: PROMETHAZINE HCL 25 MG/ML 1ML IV ONE (10:45)
[2023-05-06] MEDS ORDERED: HEPARIN DRIP/D5W 100UNITS/ML 250 ML IV SCH (10:45)
[2023-05-06] MEDS ORDERED: HEPARIN SODIUM (PORCINE) 5000 UNITS/ML 1ML VIAL IV ONE (10:45)
[2023-05-06] MEDS ORDERED: ANGIOMAX 250 MG VIAL IV ONE (12:20)
[2023-05-06] MEDS ORDERED: VERAPAMIL 2.5MG/ML INJ 2ML VIAL IV ONE (12:20)
[2023-05-06] MEDS ORDERED: IODIXANOL 320MG/ML 100ML BTL IV ONE (12:21)
[2023-05-06] MEDS ORDERED: MIDAZOLAM HCL 2MG/2ML 2ml VIAL (1mg/ml) ONE (12:21)
[2023-05-06] MEDS ORDERED: SODIUM CHL 0.9% 0 ML ONE (12:21)
[2023-05-06] MEDS ORDERED: LIDOCAINE 2%HCL (LOCAL ANESTH.) INJ 20ML MDV ONE (12:21)
[2023-05-06] MEDS ORDERED: HEPARIN IN NS 1000Units/500mL 0 ML ONE (12:21)
[2023-05-06] MEDS ORDERED: fentaNYL CITRATE 100 MCG/2 ML VL ONE (12:21)
[2023-05-06] MEDS: HEPARIN DRIP/D5W 100UNITS/ML 250 ML IV SCH (12:30)
[2023-05-06 13:00] VITALS: BP 156/99
[2023-05-06] MEDS ORDERED: ENALAPRILAT 1.25 MG/ML-1ML VIAL IV ONE (13:15)
[2023-05-06] MEDS ORDERED: LABETALOL HCL 5 MG/ML 4ML SYRINGE IV ONE (13:15)
[2023-05-06] MEDS ORDERED: HALOPERIDOL LACTATE 5 MG/ML INJ VIAL IM ONE (14:45)
[2023-05-06] MEDS ORDERED: diphenhdrAMINE HCL 50 MG/1 ML VL IV ONE (14:45)
[2023-05-06 16:44] VITALS: BP 197/83
[2023-05-06] MEDS: FUROSEMIDE 20 MG/2 ML VIAL IV SCH (18:48)
[2023-05-06 20:00] VITALS: BP 159/80
[2023-05-06] MEDS: ATORVASTATIN 20 MG TAB PO SCH (21:27)
[2023-05-06 22:00] VITALS: BP 159/80
[2023-05-07] VITALS (37 sets, daily range): BP systolic 107–206; BP diastolic 54–126
[2023-05-07] MEDS: LABETALOL HCL 5 MG/ML 4ML SYRINGE IV PRN ×2 (00:39→05:34)
[2023-05-07] MEDS: ACCU-CHEK COMFORT CURVE STRIP VI SCH ×3 (05:33→18:00)
[2023-05-07] MEDS: FUROSEMIDE 20 MG/2 ML VIAL IV SCH ×2 (05:33→18:32)
[2023-05-07] MEDS: InsuLIN REG 1unit/0.01ml Soln (100units/ml) SC SCH ×3 (05:39→18:00)
[2023-05-07] MEDS: hydrALAZINE HCL 20 MG/ML VL IV PRN (08:31)
[2023-05-07] MEDS ORDERED: LORazepam 2MG/ML-1ML VIAL IV ONE (09:00)
[2023-05-07] MEDS ORDERED: LORazepam 2MG/ML-1ML VIAL ONE (09:01)
[2023-05-07] MEDS: PANTOPRAZOLE 40 MG/10 ML VIAL INJ IV SCH (09:54)
[2023-05-07] MEDS: NIFEdipine ER 30 MG TAB PO SCH (10:00)
[2023-05-07] MEDS: METOPROLOL TARTRATE 50 MG TAB PO SCH ×2 (10:00→22:54)
[2023-05-07] MEDS: ASPirin 81 mg TAB PO SCH (10:00)
[2023-05-07 11:34] LABS: Basophils # (auto) 0 10 ^3/uL (0-0.2); Basophils % (auto) 0.2 % (0.0-2.0); Eosinophils # (auto) 0 10 ^3/uL (0-0.8); Eosinophils % (auto) 0.4 % (0.0-7.0); Hematocrit 49.8 % (41.0-53.0); Hemoglobin 16.4 g/dL (13.5-17.5); Lymphocytes % (auto) 11.7 % (10.0-50.0); Mean Corpuscular Hemoglobin 30.2 pg (28.0-32.0); Mean Corpuscular Hgb Conc. 32.9 g/dL (32.0-36.0); Monocytes # (auto) 0.7 10 ^3/uL (0-1.3); Monocytes % (auto) 7.8 % (0.0-12.0); Neutrophils # (auto) 6.9 10 ^3/uL (1.6-8.6); Neutrophils % (auto) 79.9 % (37.0-80.0); Nucleated Red Blood Cells % 0.2 %; Red Blood Cells 5.41 10^6/uL (4.5-5.90); Red Cell Distribution Width 16.8 % (11.8-14.3); White Blood Cell 8.6 10^3/uL (4.4-10.8)
[2023-05-07 11:51] LABS: Potassium 3.7 mmol/L (3.5-5.1)
[2023-05-07 11:54] LABS: BUN/Creatinine Ratio 16.9 (10.0-20.0); Total Protein 7.3 g/dL (6.4-8.2)
[2023-05-07] MEDS: chlordiazePOXIDE HCL 25 MG CAP PO SCH ×2 (12:15→20:55)
[2023-05-07] MEDS: HEPARIN DRIP/D5W 100UNITS/ML 250 ML IV SCH (12:30)
[2023-05-07] MEDS ORDERED: METOPROLOL TARTRATE 1MG/1ML-5ML VIAL IV ONE (19:15)
[2023-05-07] MEDS: ATORVASTATIN 20 MG TAB PO SCH (22:53)
[2023-05-08] VITALS (47 sets, daily range): BP systolic 104–192; BP diastolic 61–149
[2023-05-08] MEDS: ACCU-CHEK COMFORT CURVE STRIP VI SCH ×4 (00:54→19:07)
[2023-05-08] MEDS: hydrALAZINE HCL 20 MG/ML VL IV PRN (03:37)
[2023-05-08] MEDS: chlordiazePOXIDE HCL 25 MG CAP PO SCH ×4 (04:32→22:00)
[2023-05-08 04:46] LABS: Basophils # (auto) 0.1 10 ^3/uL (0-0.2); Basophils % (auto) 0.7 % (0.0-2.0); Eosinophils # (auto) 0.1 10 ^3/uL (0-0.8); Eosinophils % (auto) 1.5 % (0.0-7.0); Hematocrit 45.9 % (41.0-53.0); Hemoglobin 15.5 g/dL (13.5-17.5); Lymphocytes # (auto) 1.4 10 ^3/uL (0.4-5.4); Mean Corpuscular Hemoglobin 30.9 pg (28.0-32.0); Mean Corpuscular Hgb Conc. 33.8 g/dL (32.0-36.0); Mean Corpuscular Volume 91.4 fL (80.0-100.0); Monocytes # (auto) 0.9 10 ^3/uL (0-1.3); Neutrophils # (auto) 6.7 10 ^3/uL (1.6-8.6); Neutrophils % (auto) 72.8 % (37.0-80.0); Nucleated Red Blood Cells % 0.1 %; Red Blood Cells 5.02 10^6/uL (4.5-5.90); Red Cell Distribution Width 16.2 % (11.8-14.3); White Blood Cell 9.2 10^3/uL (4.4-10.8)
[2023-05-08 05:05] LABS: Calcium 9.1 mg/dL (8.5-10.1); Potassium 3.4 mmol/L (3.5-5.1)
[2023-05-08] MEDS: InsuLIN REG 1unit/0.01ml Soln (100units/ml) SC SCH ×4 (06:00→19:08)
[2023-05-08] MEDS: FUROSEMIDE 20 MG/2 ML VIAL IV SCH ×2 (06:28→19:05)
[2023-05-08] MEDS: LABETALOL HCL 5 MG/ML 4ML SYRINGE IV PRN (08:50)
[2023-05-08 09:29] LABS: Folate (Folic Acid) 19.17 ng/mL (5.38-24)
[2023-05-08] MEDS: METOPROLOL TARTRATE 50 MG TAB PO SCH ×2 (11:45→22:00)
[2023-05-08] MEDS: HEPARIN DRIP/D5W 100UNITS/ML 250 ML IV SCH (14:06)
[2023-05-08] MEDS: ASPirin 81 mg TAB PO SCH (14:14)
[2023-05-08] MEDS: PANTOPRAZOLE 40 MG/10 ML VIAL INJ IV SCH (14:15)
[2023-05-08] MEDS: FOLIC ACID 1 MG, MULTIPLE VITAMIN 10 ML, MAGNESIUM SULF SDV 50% 8 MEQ, THIAMINE INJ 100... INJ SCH ×5 (16:05)
[2023-05-08] MEDS: NIFEdipine ER 30 MG TAB PO SCH (17:41)
[2023-05-08] MEDS: ATORVASTATIN 20 MG TAB PO SCH (22:00)
[2023-05-09] VITALS (18 sets, daily range): BP systolic 98–192; BP diastolic 52–94
[2023-05-09] MEDS: ACCU-CHEK COMFORT CURVE STRIP VI SCH ×4 (00:30→17:55)
[2023-05-09 05:43] LABS: Basophils # (auto) 0 10 ^3/uL (0-0.2); Basophils % (auto) 0.5 % (0.0-2.0); Eosinophils # (auto) 0.2 10 ^3/uL (0-0.8); Eosinophils % (auto) 1.6 % (0.0-7.0); Hematocrit 47.6 % (41.0-53.0); Lymphocytes # (auto) 1.3 10 ^3/uL (0.4-5.4); Lymphocytes % (auto) 13.3 % (10.0-50.0); Mean Corpuscular Hgb Conc. 33.5 g/dL (32.0-36.0); Mean Corpuscular Volume 92.3 fL (80.0-100.0); Monocytes # (auto) 0.8 10 ^3/uL (0-1.3); Monocytes % (auto) 8.5 % (0.0-12.0); Neutrophils # (auto) 7.5 10 ^3/uL (1.6-8.6); Neutrophils % (auto) 76.1 % (37.0-80.0); Nucleated Red Blood Cells % 0.1 %; Red Blood Cells 5.16 10^6/uL (4.5-5.90); Red Cell Distribution Width 16.8 % (11.8-14.3); White Blood Cell 9.8 10^3/uL (4.4-10.8)
[2023-05-09] MEDS: InsuLIN REG 1unit/0.01ml Soln (100units/ml) SC SCH ×4 (06:00→18:00)
[2023-05-09 06:07] LABS: BUN/Creatinine Ratio 25.4 (10.0-20.0); Potassium 3.5 mmol/L (3.5-5.1)
[2023-05-09] MEDS: FUROSEMIDE 20 MG/2 ML VIAL IV SCH ×2 (06:35→17:54)
[2023-05-09] MEDS: chlordiazePOXIDE HCL 25 MG CAP PO SCH ×2 (10:00→22:15)
[2023-05-09] MEDS: NIFEdipine ER 30 MG TAB PO SCH ×2 (10:00→13:10)
[2023-05-09] MEDS: ASPirin 81 mg TAB PO SCH (10:15)
[2023-05-09] MEDS: METOPROLOL TARTRATE 50 MG TAB PO SCH ×2 (10:15→22:16)
[2023-05-09] MEDS: FOLIC ACID 1 MG, MULTIPLE VITAMIN 10 ML, MAGNESIUM SULF SDV 50% 8 MEQ, THIAMINE INJ 100... INJ SCH ×5 (12:43)
[2023-05-09] MEDS: ATORVASTATIN 20 MG TAB PO SCH (22:15)
[2023-05-10 00:13] VITALS: BP 121/70
[2023-05-10] MEDS: InsuLIN REG 1unit/0.01ml Soln (100units/ml) SC SCH ×4 (06:00→17:41)
[2023-05-10] MEDS: FUROSEMIDE 20 MG/2 ML VIAL IV SCH (06:19)
[2023-05-10] MEDS: ACCU-CHEK COMFORT CURVE STRIP VI SCH ×4 (06:20→17:42)
[2023-05-10] MEDS ORDERED: chlordiazePOXIDE HCL 25 MG CAP PO SCH (07:00)
[2023-05-10 09:00] VITALS: BP 122/73
[2023-05-10 09:20] LABS: Potassium 3.3 mmol/L (3.5-5.1)
[2023-05-10 09:22] LABS: BUN/Creatinine Ratio 27.7 (10.0-20.0); Calcium 8.8 mg/dL (8.5-10.1)
[2023-05-10] MEDS ORDERED: POTASSIUM CHL 20 Meq TABLET PO ONE (10:30)
[2023-05-10] MEDS: METOPROLOL TARTRATE 50 MG TAB PO SCH ×2 (11:17→21:21)
[2023-05-10] MEDS: NIFEdipine ER 30 MG TAB PO SCH (11:17)
[2023-05-10] MEDS: ASPirin 81 mg TAB PO SCH (11:17)
[2023-05-10] MEDS: FOLIC ACID 1 MG, MULTIPLE VITAMIN 10 ML, MAGNESIUM SULF SDV 50% 8 MEQ, THIAMINE INJ 100... INJ SCH ×5 (12:23)
[2023-05-10 13:00] VITALS: BP 122/77
[2023-05-10 16:30] VITALS: BP 146/66
[2023-05-10] MEDS: ATORVASTATIN 20 MG TAB PO SCH (21:20)
[2023-05-10 22:00] VITALS: BP 127/76
[2023-05-10 23:19] LABS: Urine Bacteria NONE SEEN /hpf (None Seen); Urine Blood Negative /uL (Negative); Urine Specific Gravity 1.017 (1.001-1.035); Urine WBC 1 /hpf (0 - 3)
[2023-05-10 23:41] LABS: Protein, Urine 23.3 mg/dL (0.0-11.9)
[2023-05-11 05:00] VITALS: BP 125/78
[2023-05-11] MEDS: InsuLIN REG 1unit/0.01ml Soln (100units/ml) SC SCH ×4 (06:00→18:35)
[2023-05-11 06:25] LABS: Basophils # (auto) 0 10 ^3/uL (0-0.2); Basophils % (auto) 0.6 % (0.0-2.0); Eosinophils # (auto) 0.1 10 ^3/uL (0-0.8); Eosinophils % (auto) 1.8 % (0.0-7.0); Hematocrit 45.2 % (41.0-53.0); Hemoglobin 15.2 g/dL (13.5-17.5); Lymphocytes # (auto) 0.8 10 ^3/uL (0.4-5.4); Mean Corpuscular Hemoglobin 30.8 pg (28.0-32.0); Mean Corpuscular Hgb Conc. 33.6 g/dL (32.0-36.0); Mean Corpuscular Volume 91.7 fL (80.0-100.0); Monocytes # (auto) 0.5 10 ^3/uL (0-1.3); Monocytes % (auto) 5.9 % (0.0-12.0); Neutrophils # (auto) 6.9 10 ^3/uL (1.6-8.6); Neutrophils % (auto) 82.7 % (37.0-80.0); Nucleated Red Blood Cells % 0.1 %; Red Blood Cells 4.93 10^6/uL (4.5-5.90); Red Cell Distribution Width 16.3 % (11.8-14.3); White Blood Cell 8.4 10^3/uL (4.4-10.8)
[2023-05-11] MEDS: ACCU-CHEK COMFORT CURVE STRIP VI SCH ×4 (06:25→18:36)
[2023-05-11 06:32] LABS: Potassium 3.5 mmol/L (3.5-5.1)
[2023-05-11 06:43] LABS: Albumin 3.1 g/dL (3.4-5.0); BUN/Creatinine Ratio 24.8 (10.0-20.0); Bilirubin, Direct 0.2 mg/dL (0-0.2); Bilirubin, Total 0.8 mg/dL (0.2-1.0); Calcium 8.5 mg/dL (8.5-10.1); Phosphorus 2.2 mg/dL (2.5-4.90); Total Protein 6.6 g/dL (6.4-8.2); Uric Acid 9.1 mg/dL (3.5-7.2)
[2023-05-11 08:30] VITALS: BP 131/73
[2023-05-11] MEDS: ASPirin 81 mg TAB PO SCH (09:41)
[2023-05-11] MEDS: METOPROLOL TARTRATE 50 MG TAB PO SCH ×2 (09:41→21:27)
[2023-05-11] MEDS: NIFEdipine ER 30 MG TAB PO SCH (09:42)
[2023-05-11] MEDS ORDERED: FUROSEMIDE 20 MG/2 ML VIAL IV SCH (10:00)
[2023-05-11] MEDS: FOLIC ACID 1 MG, MULTIPLE VITAMIN 10 ML, MAGNESIUM SULF SDV 50% 8 MEQ, THIAMINE INJ 100... INJ SCH ×5 (12:33)
[2023-05-11] MEDS: chlordiazePOXIDE HCL 25 MG CAP PO SCH ×2 (15:12→21:26)
[2023-05-11 16:30] VITALS: BP 129/69
[2023-05-11] MEDS: ATORVASTATIN 20 MG TAB PO SCH (21:27)
[2023-05-11 22:00] VITALS: BP 132/76
[2023-05-11] MEDS ORDERED: LORazepam 2MG/ML-1ML VIAL IV PRN (22:30)
[2023-05-12] VITALS (12 sets, daily range): BP systolic 126–159; BP diastolic 66–101
[2023-05-12] MEDS: ACCU-CHEK COMFORT CURVE STRIP VI SCH ×4 (00:16→18:16)
[2023-05-12] MEDS: InsuLIN REG 1unit/0.01ml Soln (100units/ml) SC SCH ×4 (00:16→18:00)
[2023-05-12] MEDS: chlordiazePOXIDE HCL 25 MG CAP PO SCH ×3 (06:24→21:29)
[2023-05-12 06:33] LABS: Basophils # (auto) 0 10 ^3/uL (0-0.2); Basophils % (auto) 0.4 % (0.0-2.0); Eosinophils # (auto) 0.1 10 ^3/uL (0-0.8); Eosinophils % (auto) 1.7 % (0.0-7.0); Hematocrit 44.9 % (41.0-53.0); Hemoglobin 15.2 g/dL (13.5-17.5); INR 1.22 (0.9-1.15); Lymphocytes # (auto) 1.2 10 ^3/uL (0.4-5.4); Lymphocytes % (auto) 16.7 % (10.0-50.0); Mean Corpuscular Hemoglobin 31.2 pg (28.0-32.0); Mean Corpuscular Hgb Conc. 33.8 g/dL (32.0-36.0); Mean Corpuscular Volume 92.1 fL (80.0-100.0); Monocytes # (auto) 0.8 10 ^3/uL (0-1.3); Monocytes % (auto) 10.4 % (0.0-12.0); Neutrophils # (auto) 5.2 10 ^3/uL (1.6-8.6); Neutrophils % (auto) 70.8 % (37.0-80.0); Nucleated Red Blood Cells % 0.1 %; Partial Thromboplastin Time 31.7 SEC (24.5-34.5); Red Blood Cells 4.87 10^6/uL (4.5-5.90); Red Cell Distribution Width 16.1 % (11.8-14.3); White Blood Cell 7.3 10^3/uL (4.4-10.8)
[2023-05-12 06:54] LABS: Chloride 113 mmol/L (98-107); Potassium 3.5 mmol/L (3.5-5.1); Sodium 141 mmol/L (136-145)
[2023-05-12 07:11] LABS: Anion Gap 6 (5-15); BUN/Creatinine Ratio 22.4 (10.0-20.0); Blood Urea Nitrogen 28 mg/dL (7-18); Calcium 8.4 mg/dL (8.5-10.1); Carbon Dioxide 22 mmol/L (21-32); GFR African American 74 mL/min; GFR Non-African American 61 mL/min; Glucose 116 mg/dL (74-106)
[2023-05-12] MEDS: ASPirin 81 mg TAB PO SCH (09:41)
[2023-05-12] MEDS: NIFEdipine ER 30 MG TAB PO SCH (09:42)
[2023-05-12] MEDS: METOPROLOL TARTRATE 50 MG TAB PO SCH ×2 (09:42→21:32)
[2023-05-12] MEDS: FOLIC ACID 1 MG, MULTIPLE VITAMIN 10 ML, MAGNESIUM SULF SDV 50% 8 MEQ, THIAMINE INJ 100... INJ SCH ×5 (12:52)
[2023-05-12] MEDS ORDERED: ONDANSETRON HCL 4 MG/2 ML VIAL IV ONE (16:15)
[2023-05-12] MEDS ORDERED: MIDAZOLAM HCL 2MG/2ML 2ml VIAL (1mg/ml) IV ONE (16:15)
[2023-05-12] MEDS ORDERED: fentaNYL CITRATE 100 MCG/2 ML VL IV ONE (16:15)
[2023-05-12] MEDS ORDERED: LIDOCAINE VISCOUS 2% 15ML UD PO ONE (17:00)
[2023-05-12] MEDS: ATORVASTATIN 20 MG TAB PO SCH (21:29)
[2023-05-13] MEDS: ACCU-CHEK COMFORT CURVE STRIP VI SCH ×4 (00:19→17:33)
[2023-05-13] MEDS: InsuLIN REG 1unit/0.01ml Soln (100units/ml) SC SCH ×4 (00:20→17:37)
[2023-05-13 05:00] VITALS: BP 138/51
[2023-05-13] MEDS: chlordiazePOXIDE HCL 25 MG CAP PO SCH ×3 (05:40→22:18)
[2023-05-13 08:36] VITALS: BP 145/80
[2023-05-13] MEDS: ASPirin 81 mg TAB PO SCH (09:27)
[2023-05-13] MEDS: METOPROLOL TARTRATE 50 MG TAB PO SCH ×2 (09:27→21:31)
[2023-05-13] MEDS: NIFEdipine ER 30 MG TAB PO SCH (09:28)
[2023-05-13] MEDS: FOLIC ACID 1 MG, MULTIPLE VITAMIN 10 ML, MAGNESIUM SULF SDV 50% 8 MEQ, THIAMINE INJ 100... INJ SCH ×5 (12:06)
[2023-05-13 13:00] VITALS: BP 132/85
[2023-05-13] MEDS: hydrALAZINE HCL 20 MG/ML VL IV PRN (15:45)
[2023-05-13 16:32] VITALS: BP 153/82
[2023-05-13] MEDS: ATORVASTATIN 20 MG TAB PO SCH (21:30)
[2023-05-13 22:00] VITALS: BP 128/62
[2023-05-14] MEDS: ACCU-CHEK COMFORT CURVE STRIP VI SCH ×4 (00:06→17:43)
[2023-05-14 05:00] VITALS: BP 144/80
[2023-05-14] MEDS: InsuLIN REG 1unit/0.01ml Soln (100units/ml) SC SCH ×4 (06:00→17:43)
[2023-05-14] MEDS: chlordiazePOXIDE HCL 25 MG CAP PO SCH ×3 (06:06→22:27)
[2023-05-14 06:31] LABS: Potassium 3.8 mmol/L (3.5-5.1)
[2023-05-14 06:46] LABS: BUN/Creatinine Ratio 12.6 (10.0-20.0); Calcium 8.7 mg/dL (8.5-10.1)
[2023-05-14 09:01] VITALS: BP 128/59
[2023-05-14] MEDS: NIFEdipine ER 30 MG TAB PO SCH (09:32)
[2023-05-14] MEDS: METOPROLOL TARTRATE 50 MG TAB PO SCH ×2 (09:32→22:28)
[2023-05-14] MEDS: DOCUSATE SOD 100 MG CAP PO PRN ×2 (09:32→22:44)
[2023-05-14] MEDS: ASPirin 81 mg TAB PO SCH (09:33)
[2023-05-14] MEDS: FOLIC ACID 1 MG, MULTIPLE VITAMIN 10 ML, MAGNESIUM SULF SDV 50% 8 MEQ, THIAMINE INJ 100... INJ SCH ×5 (12:53)
[2023-05-14 13:00] VITALS: BP 137/75
[2023-05-14 16:43] VITALS: BP 126/65
[2023-05-14 22:00] VITALS: BP 139/78
[2023-05-14] MEDS: ATORVASTATIN 20 MG TAB PO SCH (22:28)
[2023-05-15 05:00] VITALS: BP 165/80
[2023-05-15] MEDS: InsuLIN REG 1unit/0.01ml Soln (100units/ml) SC SCH ×4 (06:00→17:26)
[2023-05-15] MEDS: chlordiazePOXIDE HCL 25 MG CAP PO SCH ×3 (06:25→23:01)
[2023-05-15] MEDS: ACCU-CHEK COMFORT CURVE STRIP VI SCH ×4 (06:26→17:24)
[2023-05-15] MEDS: hydrALAZINE HCL 20 MG/ML VL IV PRN ×2 (06:26→14:56)
[2023-05-15 09:00] VITALS: BP 158/90
[2023-05-15] MEDS: METOPROLOL TARTRATE 50 MG TAB PO SCH ×2 (09:38→23:04)
[2023-05-15] MEDS: ASPirin 81 mg TAB PO SCH (09:38)
[2023-05-15] MEDS: DOCUSATE SOD 100 MG CAP PO PRN (09:39)
[2023-05-15] MEDS: NIFEdipine ER 30 MG TAB PO SCH (09:39)
[2023-05-15 10:33] LABS: Basophils # (auto) 0 10 ^3/uL (0-0.2); Basophils % (auto) 0.3 % (0.0-2.0); Eosinophils # (auto) 0.1 10 ^3/uL (0-0.8); Eosinophils % (auto) 1.4 % (0.0-7.0); Hematocrit 46.8 % (41.0-53.0); Hemoglobin 15.7 g/dL (13.5-17.5); Lymphocytes # (auto) 0.7 10 ^3/uL (0.4-5.4); Lymphocytes % (auto) 10.2 % (10.0-50.0); Mean Corpuscular Hemoglobin 30.5 pg (28.0-32.0); Mean Corpuscular Hgb Conc. 33.5 g/dL (32.0-36.0); Mean Corpuscular Volume 90.9 fL (80.0-100.0); Monocytes # (auto) 0.6 10 ^3/uL (0-1.3); Monocytes % (auto) 8.7 % (0.0-12.0); Neutrophils # (auto) 5.2 10 ^3/uL (1.6-8.6); Neutrophils % (auto) 79.4 % (37.0-80.0); Nucleated Red Blood Cells % 0.3 %; Red Blood Cells 5.15 10^6/uL (4.5-5.90); Red Cell Distribution Width 16.1 % (11.8-14.3); White Blood Cell 6.6 10^3/uL (4.4-10.8)
[2023-05-15 10:41] LABS: Albumin 3.4 g/dL (3.4-5.0); Calcium 9.3 mg/dL (8.5-10.1)
[2023-05-15 10:46] LABS: Bilirubin, Total 0.6 mg/dL (0.2-1.0); Total Protein 6.7 g/dL (6.4-8.2)
[2023-05-15 12:48] VITALS: BP 153/88
[2023-05-15] MEDS: FOLIC ACID 1 MG, MULTIPLE VITAMIN 10 ML, MAGNESIUM SULF SDV 50% 8 MEQ, THIAMINE INJ 100... INJ SCH ×5 (13:30)
[2023-05-15 17:00] VITALS: BP 117/60
[2023-05-15 22:00] VITALS: BP 121/72
[2023-05-15] MEDS: ATORVASTATIN 20 MG TAB PO SCH (23:01)
[2023-05-16] MEDS: ACCU-CHEK COMFORT CURVE STRIP VI SCH ×3 (00:10→12:00)
[2023-05-16 04:55] VITALS: BP 129/78
[2023-05-16] MEDS: InsuLIN REG 1unit/0.01ml Soln (100units/ml) SC SCH ×3 (06:00→12:00)
[2023-05-16] MEDS: chlordiazePOXIDE HCL 25 MG CAP PO SCH ×2 (06:55→13:44)
[2023-05-16 09:00] VITALS: BP 155/89
[2023-05-16] MEDS: hydrALAZINE HCL 20 MG/ML VL IV PRN (09:39)
[2023-05-16] MEDS: ASPirin 81 mg TAB PO SCH (09:40)
[2023-05-16] MEDS: NIFEdipine ER 30 MG TAB PO SCH (09:40)
[2023-05-16] MEDS: METOPROLOL TARTRATE 50 MG TAB PO SCH (09:41)
[2023-05-16] MEDS ORDERED: FOLI-119 PO (10:20)
[2023-05-16] MEDS ORDERED: THIA100T13 PO (10:20)
[2023-05-16] MEDS ORDERED: CHL25C PO (10:20)
[2023-05-16] MEDS ORDERED: MULT1TAB95 PO (10:20)
[2023-05-16 12:38] VITALS: BP 116/80
[2023-05-16 12:59] VITALS: BP 132/78
== END 2023-05-16 14:20 | disposition home health service (06) | DRG 64 ==
LOC: ER 09:27 → TELE 13:14 → TELE-WESTW 05-06 11:48 → DOU IN ICU 05-07 13:40 → ICU CENTRL 05-07 14:00 → TELE-WESTW 05-09 17:05
PROVIDERS: ADMIT Family Medicine; ATTEND Family Medicine
PROC: 4A10X4Z Monitoring of Central Nervous Electrical Activity, External Approach (ICD-10-PCS; principal; 2023-05-05)
PROC: 4A10X4Z Monitoring of Central Nervous Electrical Activity, External Approach (ICD-10-PCS; 2023-05-12)
PROC: B24BZZ4 Ultrasonography of Heart with Aorta, Transesophageal (ICD-10-PCS; 2023-05-12)
DX: I63.9 Cerebral infarction, unspecified (principal); G92.8 Other toxic encephalopathy; I21.A1 Myocardial infarction type 2; I50.43 Acute on chronic combined systolic (congestive) and diastolic (congestive) heart failure; N17.0 Acute kidney failure with tubular necrosis; I13.0 Hypertensive heart and chronic kidney disease with heart failure and stage 1 through stage 4 chronic kidney disease, or unspecified chronic kidney disease; I16.1 Hypertensive emergency; F10.139 Alcohol abuse with withdrawal, unspecified; G81.91 Hemiplegia, unspecified affecting right dominant side; R29.708 NIHSS score 8; D69.1 Qualitative platelet defects; E11.51 Type 2 diabetes mellitus with diabetic peripheral angiopathy without gangrene; E78.00 Pure hypercholesterolemia, unspecified; F17.200 Nicotine dependence, unspecified, uncomplicated; G40.409 Other generalized epilepsy and epileptic syndromes, not intractable, without status epilepticus; I25.10 Atherosclerotic heart disease of native coronary artery without angina pectoris; E11.65 Type 2 diabetes mellitus with hyperglycemia; E11.22 Type 2 diabetes mellitus with diabetic chronic kidney disease; I45.10 Unspecified right bundle-branch block; I49.1 Atrial premature depolarization; Y90.9 Presence of alcohol in blood, level not specified; I08.0 Rheumatic disorders of both mitral and aortic valves; I70.0 Atherosclerosis of aorta; N18.32 Chronic kidney disease, stage 3b; Z79.899 Other long term (current) drug therapy; Z95.1 Presence of aortocoronary bypass graft; Z98.61 Coronary angioplasty status; Z91.199 Patient's noncompliance with other medical treatment and regimen due to unspecified reason
CPT/HCPCS: 36415; 70450; 70551; 71045; 76775; 80048; 80053; 80061; 80076; 80307; 80320; 81001; 82140; 82570; 82607; 82746; 82962; 83036; 83090; 83735; 83880; 84100; 84156; 84300; 84439; 84443; 84484; 84550; 85025; 85610; 85652; 85730; 86592; 87081; 92610; 93005; 93306; 93312; 93886; 95819; 96361; 96374; 96375; 96376; 97110; 97116; 97163; 97530; 99152; A4565; C9113; G0378; J1815; J2250; J3490; Q9967

== ENCOUNTER 2023-05-17 10:18 | Inpatient (IN) | payer MEDICARE, MEDICAID ==
[~2023-05-17] VITALS: Ht 180.3 cm; Wt 85.9 kg
[2023-05-17] VITALS (7 sets, daily range): BP systolic 169; BP diastolic 82; PULSE 93–118; RESP 22–25; O2SAT 92–99
[~2023-05-17 10:18] MED LIST changes: +CHL25C PO; +FOLI-119 PO; +MULT1TAB95 PO; +THIA100T13 PO
[2023-05-17] MEDS ORDERED: SODIUM CHLORIDE 0.9% 1,000 ML IV ONE (10:30)
[2023-05-17 11:10] LABS: Basophils # (auto) 0 10 ^3/uL (0-0.2); Basophils % (auto) 0.3 % (0.0-2.0); Eosinophils # (auto) 0 10 ^3/uL (0-0.8); Eosinophils % (auto) 0.4 % (0.0-7.0); Hematocrit 43.7 % (41.0-53.0); Hemoglobin 14.9 g/dL (13.5-17.5); Lymphocytes # (auto) 0.9 10 ^3/uL (0.4-5.4); Mean Corpuscular Hemoglobin 30.9 pg (28.0-32.0); Mean Corpuscular Hgb Conc. 34.2 g/dL (32.0-36.0); Mean Corpuscular Volume 90.4 fL (80.0-100.0); Monocytes # (auto) 0.9 10 ^3/uL (0-1.3); Monocytes % (auto) 10.7 % (0.0-12.0); Neutrophils # (auto) 6.7 10 ^3/uL (1.6-8.6); Neutrophils % (auto) 78.6 % (37.0-80.0); Nucleated Red Blood Cells % 0.1 %; Red Blood Cells 4.83 10^6/uL (4.5-5.90); Red Cell Distribution Width 16.2 % (11.8-14.3); White Blood Cell 8.6 10^3/uL (4.4-10.8)
[2023-05-17 11:21] LABS: INR 1.36 (0.9-1.15); Partial Thromboplastin Time 36.2 SEC (24.5-34.5)
[2023-05-17 11:26] LABS: Calcium 8.7 mg/dL (8.5-10.1); Chloride 110 mmol/L (98-107); Sodium 141 mmol/L (136-145)
[2023-05-17 11:33] LABS: Alanine Aminotransferase 23 U/L (16-61); Alkaline Phosphatase 101 U/L (45-117); Anion Gap 7 (5-15); Aspartate Aminotransferase 22 U/L (15-37); Bilirubin, Total 1.5 mg/dL (0.2-1.0); Blood Alcohol < 3.0 mg/dL (<10); Blood Urea Nitrogen 17 mg/dL (7-18); Carbon Dioxide 24 mmol/L (21-32); GFR African American 70 mL/min; GFR Non-African American 58 mL/min; Glucose 126 mg/dL (74-106); Magnesium 2.2 mg/dL (1.6-2.6); Total Protein 6.2 g/dL (6.4-8.2)
[2023-05-17 11:54] LABS: Urine Bacteria FEW /hpf (None Seen); Urine Blood Negative /uL (Negative); Urine Clarity Clear (Clear); Urine Color Yellow (Yellow); Urine Mucus FEW (None Seen); Urine Protein, UAD 1+ (Negative); Urine Specific Gravity 1.015 (1.001-1.035); Urine WBC 2 /hpf (0 - 3)
[2023-05-17 12:16] LABS: Alcohol, Urine < 3.0 mg/dL (0-10); Amphetamine Screen, Urine NEGATIVE (NEGATIVE); Barbiturate Scree,Urine NEGATIVE (NEGATIVE); Benzodiazephine Screen, Urine POSITIVE (NEGATIVE); Cannabinoid Screen, Urine NEGATIVE (NEGATIVE); Cocaine Screen, Urine NEGATIVE (NEGATIVE)
[2023-05-17 12:24] LABS: Opiate Scree,Urine NEGATIVE (NEGATIVE); Phencyclidine Screen, Urine NEGATIVE (NEGATIVE)
[2023-05-17] MEDS ORDERED: DEXTROSE (50%) 50ML SYRG IV PRN (12:45)
[2023-05-17] MEDS ORDERED: SODIUM CHLORIDE 0.9% 1,000 ML IV SCH (12:45)
[2023-05-17] MEDS ORDERED: MORPHINE SULFATE INJ 2 MG/ml SYRG IV PRN (12:45)
[2023-05-17] MEDS ORDERED: NITROGLYCERIN 0.4 MG SL TAB SL PRN (12:45)
[2023-05-17] MEDS ORDERED: ALBUTEROL SULF 2.5 MG/0.5ML(0.5%) NEB SOLN NEB PRN (14:15)
[2023-05-17] MEDS: InsuLIN REG 1unit/0.01ml Soln (100units/ml) SC SCH ×2 (17:00→23:00)
[2023-05-17] MEDS: ACCU-CHEK COMFORT CURVE STRIP VI SCH ×2 (18:07→23:00)
[2023-05-17] MEDS ORDERED: LORazepam 2MG/ML-1ML VIAL IV PRN (19:45)
[2023-05-17] MEDS ORDERED: LORazepam 2MG/ML-1ML VIAL IV ONE (19:45)
[2023-05-17] MEDS: hydrALAZINE HCL 20 MG/ML VL IV PRN (20:00)
[2023-05-17] MEDS: ATORVASTATIN 20 MG TAB PO SCH (23:00)
[2023-05-17] MEDS: CARVEDILOL 12.5 MG TAB PO SCH (23:00)
[2023-05-17] MEDS ORDERED: METOPROLOL TARTRATE 1MG/1ML-5ML VIAL IV ONE (23:30)
[2023-05-17] MEDS ORDERED: SODIUM CHLORIDE 0.9% 500 ML IV ONE (23:30)
[2023-05-18] MEDS ORDERED: VANCOMYCIN PER PHARMACY 0 MG IV SCH (05:45)
[2023-05-18] MEDS ORDERED: VANCOMYCIN 1GM/250ML 250 ML IV ONE (06:00)
[2023-05-18] MEDS: ACCU-CHEK COMFORT CURVE STRIP VI SCH ×4 (06:37→22:08)
[2023-05-18] MEDS: InsuLIN REG 1unit/0.01ml Soln (100units/ml) SC SCH ×4 (06:37→23:41)
[2023-05-18 06:41] LABS: Basophils # (auto) 0 10 ^3/uL (0-0.2); Basophils % (auto) 0.2 % (0.0-2.0); Eosinophils # (auto) 0 10 ^3/uL (0-0.8); Eosinophils % (auto) 0.5 % (0.0-7.0); Hematocrit 41.4 % (41.0-53.0); Lymphocytes # (auto) 0.8 10 ^3/uL (0.4-5.4); Lymphocytes % (auto) 8.2 % (10.0-50.0); Mean Corpuscular Hgb Conc. 33.8 g/dL (32.0-36.0); Mean Corpuscular Volume 91.7 fL (80.0-100.0); Monocytes # (auto) 0.8 10 ^3/uL (0-1.3); Monocytes % (auto) 8.4 % (0.0-12.0); Neutrophils # (auto) 7.9 10 ^3/uL (1.6-8.6); Neutrophils % (auto) 82.7 % (37.0-80.0); Nucleated Red Blood Cells % 0.1 %; Red Blood Cells 4.51 10^6/uL (4.5-5.90); White Blood Cell 9.5 10^3/uL (4.4-10.8)
[2023-05-18 06:57] LABS: Potassium 3.9 mmol/L (3.5-5.1)
[2023-05-18 07:04] LABS: Albumin 2.5 g/dL (3.4-5.0); BUN/Creatinine Ratio 13.6 (10.0-20.0); Bilirubin, Total 1.2 mg/dL (0.2-1.0); Calcium 8.7 mg/dL (8.5-10.1); Total Protein 6.4 g/dL (6.4-8.2)
[2023-05-18 08:00] VITALS: PULSE 98; RESP 33; O2SAT 98
[2023-05-18] MEDS: CARVEDILOL 12.5 MG TAB PO SCH ×2 (09:58→22:00)
[2023-05-18] MEDS: CLOPIDOGREL BISULFATE 75 MG TAB PO SCH (09:59)
[2023-05-18] MEDS: FOLIC ACID 1 MG TAB PO SCH (09:59)
[2023-05-18] MEDS ORDERED: MULTIPLE VITAMIN TAB PO SCH (10:00)
[2023-05-18] MEDS ORDERED: ASPirin 81 mg TAB PO SCH (10:00)
[2023-05-18] MEDS ORDERED: ENOXAPARIN SOD 40 MG/0.4 ML SYRINGE SC SCH (10:00)
[2023-05-18] MEDS ORDERED: amLODIPine BESYLATE 5 MG TAB PO SCH (10:00)
[2023-05-18] MEDS ORDERED: THIAMINE HCL 100 MG TAB PO SCH (10:00)
[2023-05-18] MEDS ORDERED: FUROSEMIDE 20 MG/2 ML VIAL IV ONE (10:15)
[2023-05-18] MEDS ORDERED: PPN PER PHARMACY 0 ML IV SCH (12:30)
[2023-05-18 12:36] LABS: Base Excess -0.2 mmol/L (-2.0-2.0)
[2023-05-18 13:09] LABS: Magnesium 2.1 mg/dL (1.6-2.6)
[2023-05-18] MEDS: cefTRIAXone 1GM/50ML D5W 50 ML IV SCH (13:33)
[2023-05-18 14:11] LABS: Erythrocyte Sedimentation Rate 53 mm/hr (0-20)
[2023-05-18 20:00] VITALS: PULSE 77
[2023-05-18] MEDS ORDERED: PPN PER PHARMACY IV NR ×6 (20:00)
[2023-05-18 22:00] VITALS: BP 128/70; PULSE 77; RESP 18; TEMP 97.8; O2SAT 96
[2023-05-18] MEDS: APIXABAN 5 MG TAB PO SCH (22:00)
[2023-05-18] MEDS: SACUBITRIL-VALSARTAN 24mg/26mg TAB PO SCH (22:00)
[2023-05-18] MEDS: ATORVASTATIN 20 MG TAB PO SCH (22:00)
[2023-05-19] VITALS (9 sets, daily range): BP systolic 109–160; BP diastolic 54–82; PULSE 70–99; RESP 14–22; TEMP 97.6–99.1; O2SAT 93–100
[2023-05-19] MEDS: VANCOMYCIN 1GM/250ML 250 ML IV SCH ×2 (00:52→17:45)
[2023-05-19 04:06] LABS: Vitamin D, 25-Hydroxy 25.7 ng/mL (30.0-100.0)
[2023-05-19] MEDS: EMPAGLIFLOZIN 10 MG TAB PO SCH (06:24)
[2023-05-19] MEDS: InsuLIN REG 1unit/0.01ml Soln (100units/ml) SC SCH ×4 (06:39→21:33)
[2023-05-19] MEDS: ACCU-CHEK COMFORT CURVE STRIP VI SCH ×4 (06:39→21:34)
[2023-05-19 08:06] LABS: Calcitriol(125 di-OH Vit D) 27.6 pg/mL (24.8-81.5)
[2023-05-19] MEDS: cefTRIAXone 1GM/50ML D5W 50 ML IV SCH (09:18)
[2023-05-19] MEDS: FUROSEMIDE 20 MG/2 ML VIAL IV SCH (09:18)
[2023-05-19] MEDS ORDERED: SPIRONOLACTONE 25 MG TAB PO SCH (10:00)
[2023-05-19] MEDS: SACUBITRIL-VALSARTAN 24mg/26mg TAB PO SCH ×2 (10:00→22:00)
[2023-05-19] MEDS: CLOPIDOGREL BISULFATE 75 MG TAB PO SCH (10:00)
[2023-05-19] MEDS: CARVEDILOL 12.5 MG TAB PO SCH ×2 (10:00→21:32)
[2023-05-19] MEDS: APIXABAN 5 MG TAB PO SCH ×2 (10:00→21:32)
[2023-05-19] MEDS: FOLIC ACID 1 MG TAB PO SCH (10:00)
[2023-05-19 11:00] LABS: Basophils # (auto) 0 10 ^3/uL (0-0.2); Basophils % (auto) 0.2 % (0.0-2.0); Eosinophils # (auto) 0.1 10 ^3/uL (0-0.8); Eosinophils % (auto) 1.8 % (0.0-7.0); Hematocrit 41.4 % (41.0-53.0); Hemoglobin 13.9 g/dL (13.5-17.5); Lymphocytes # (auto) 0.7 10 ^3/uL (0.4-5.4); Lymphocytes % (auto) 9.5 % (10.0-50.0); Mean Corpuscular Hemoglobin 30.9 pg (28.0-32.0); Mean Corpuscular Hgb Conc. 33.5 g/dL (32.0-36.0); Monocytes # (auto) 0.7 10 ^3/uL (0-1.3); Monocytes % (auto) 8.9 % (0.0-12.0); Neutrophils % (auto) 79.6 % (37.0-80.0); Nucleated Red Blood Cells % 0.1 %; White Blood Cell 7.6 10^3/uL (4.4-10.8)
[2023-05-19 11:18] LABS: Potassium 3.6 mmol/L (3.5-5.1)
[2023-05-19 11:25] LABS: Albumin 2.3 g/dL (3.4-5.0); Bilirubin, Total 0.4 mg/dL (0.2-1.0); Calcium 8.6 mg/dL (8.5-10.1); Magnesium 2.3 mg/dL (1.6-2.6); Total Protein 6.4 g/dL (6.4-8.2)
[2023-05-19] MEDS ORDERED: GADOTERATE MEG 10 MMOL/20ml INJ (0.5MMOL/ml) IV ONE (15:38)
[2023-05-19] MEDS ORDERED: MORPHINE SULFATE INJ 2 MG/ml SYRG IV PRN (17:15)
[2023-05-19] MEDS: hydrALAZINE HCL 20 MG/ML VL IV PRN (17:42)
[2023-05-19] MEDS ORDERED: PPN PER PHARMACY IV NR ×7 (20:00)
[2023-05-19] MEDS: ATORVASTATIN 20 MG TAB PO SCH (21:32)
[2023-05-20] VITALS (8 sets, daily range): BP systolic 134–183; BP diastolic 72–86; PULSE 56–103; RESP 15–20; TEMP 98.1–99.3; O2SAT 93–100
[2023-05-20] MEDS: EMPAGLIFLOZIN 10 MG TAB PO SCH (05:51)
[2023-05-20 06:46] LABS: Albumin 2.5 g/dL (3.4-5.0); Calcium 8.7 mg/dL (8.5-10.1); Potassium 3.3 mmol/L (3.5-5.1)
[2023-05-20 06:51] LABS: BUN/Creatinine Ratio 23.6 (10.0-20.0); Bilirubin, Total 0.6 mg/dL (0.2-1.0); Phosphorus 1.8 mg/dL (2.5-4.90); Total Protein 6.6 g/dL (6.4-8.2)
[2023-05-20] MEDS: cefTRIAXone 1GM/50ML D5W 50 ML IV SCH (09:19)
[2023-05-20] MEDS: FUROSEMIDE 20 MG/2 ML VIAL IV SCH (09:20)
[2023-05-20] MEDS: ACCU-CHEK COMFORT CURVE STRIP VI SCH ×4 (09:31→21:06)
[2023-05-20] MEDS: InsuLIN REG 1unit/0.01ml Soln (100units/ml) SC SCH ×4 (09:31→21:08)
[2023-05-20] MEDS: FOLIC ACID 1 MG TAB PO SCH (10:00)
[2023-05-20] MEDS: APIXABAN 5 MG TAB PO SCH ×2 (10:00→21:04)
[2023-05-20] MEDS: SACUBITRIL-VALSARTAN 24mg/26mg TAB PO SCH ×2 (10:00→21:05)
[2023-05-20] MEDS ORDERED: POTASSIUM PHOSPHATE 22 MEQ in SODIUM CHL 0.9% 100 ML IV ONE (10:00)
[2023-05-20] MEDS: CARVEDILOL 12.5 MG TAB PO SCH ×2 (10:00→21:03)
[2023-05-20] MEDS: CLOPIDOGREL BISULFATE 75 MG TAB PO SCH (10:00)
[2023-05-20] MEDS: VANCOMYCIN 1GM/250ML 250 ML IV SCH (13:00)
[2023-05-20] MEDS: hydrALAZINE HCL 20 MG/ML VL IV PRN ×2 (17:58→22:35)
[2023-05-20] MEDS ORDERED: MAGNESIUM SULF IV NR ×8 (20:00)
[2023-05-20] MEDS ORDERED: FAT EMULSION IV NR ×8 (20:00)
[2023-05-20] MEDS ORDERED: POTASSIUM PHOSPHATE IV NR ×8 (20:00)
[2023-05-20] MEDS ORDERED: [UNRECOGNIZED DRUG - OTHER] IV NR ×8 (20:00)
[2023-05-20] MEDS: ATORVASTATIN 20 MG TAB PO SCH (21:05)
[2023-05-21] VITALS (7 sets, daily range): BP systolic 128–178; BP diastolic 73–83; PULSE 20–99; RESP 15–20; TEMP 97.3–98.9; O2SAT 93–96
[2023-05-21] MEDS: VANCOMYCIN 1GM/250ML 250 ML IV SCH ×2 (05:43→22:09)
[2023-05-21] MEDS: hydrALAZINE HCL 20 MG/ML VL IV PRN (05:44)
[2023-05-21 05:51] LABS: Albumin 2.4 g/dL (3.4-5.0); Calcium 8.5 mg/dL (8.5-10.1); Magnesium 1.9 mg/dL (1.6-2.6); Potassium 3.2 mmol/L (3.5-5.1)
[2023-05-21 05:53] LABS: BUN/Creatinine Ratio 25.5 (10.0-20.0)
[2023-05-21 05:56] LABS: Bilirubin, Total 0.7 mg/dL (0.2-1.0); Total Protein 6.7 g/dL (6.4-8.2)
[2023-05-21] MEDS: ACCU-CHEK COMFORT CURVE STRIP VI SCH ×4 (06:10→22:11)
[2023-05-21] MEDS: InsuLIN REG 1unit/0.01ml Soln (100units/ml) SC SCH ×4 (06:12→22:00)
[2023-05-21] MEDS: EMPAGLIFLOZIN 10 MG TAB PO SCH (06:13)
[2023-05-21] MEDS: POTASSIUM CHL 20MEQ/100ML 100 ML IV SCH ×2 (09:38→11:35)
[2023-05-21] MEDS: cefTRIAXone 1GM/50ML D5W 50 ML IV SCH (09:38)
[2023-05-21] MEDS: FUROSEMIDE 20 MG/2 ML VIAL IV SCH (09:38)
[2023-05-21] MEDS: CLOPIDOGREL BISULFATE 75 MG TAB PO SCH (10:59)
[2023-05-21] MEDS: FOLIC ACID 1 MG TAB PO SCH (10:59)
[2023-05-21] MEDS: CARVEDILOL 12.5 MG TAB PO SCH ×2 (10:59→22:00)
[2023-05-21] MEDS: SACUBITRIL-VALSARTAN 24mg/26mg TAB PO SCH ×2 (10:59→22:00)
[2023-05-21] MEDS: APIXABAN 5 MG TAB PO SCH ×2 (10:59→22:00)
[2023-05-21] MEDS ORDERED: POTASSIUM ACETATE IV NR ×9 (20:00)
[2023-05-21] MEDS ORDERED: FAT EMULSION IV NR ×9 (20:00)
[2023-05-21] MEDS ORDERED: POTASSIUM PHOSPHATE IV NR ×9 (20:00)
[2023-05-21] MEDS ORDERED: [UNRECOGNIZED DRUG - OTHER] IV NR ×9 (20:00)
[2023-05-21] MEDS: ATORVASTATIN 20 MG TAB PO SCH (22:00)
[2023-05-22] VITALS (7 sets, daily range): BP systolic 110–173; BP diastolic 62–93; PULSE 20–103; RESP 16–26; TEMP 97.7–98.8; O2SAT 91–100
[2023-05-22] MEDS: hydrALAZINE HCL 20 MG/ML VL IV PRN ×2 (04:42→21:50)
[2023-05-22] MEDS: ACCU-CHEK COMFORT CURVE STRIP VI SCH ×3 (04:43→18:11)
[2023-05-22] MEDS: EMPAGLIFLOZIN 10 MG TAB PO SCH (04:47)
[2023-05-22] MEDS: InsuLIN REG 1unit/0.01ml Soln (100units/ml) SC SCH ×3 (04:48→18:17)
[2023-05-22 06:00] LABS: Albumin 2.2 g/dL (3.4-5.0); Calcium 8.7 mg/dL (8.5-10.1); Potassium 3.2 mmol/L (3.5-5.1)
[2023-05-22 06:03] LABS: Bilirubin, Total 0.7 mg/dL (0.2-1.0); Phosphorus 2.9 mg/dL (2.5-4.90); Total Protein 6.5 g/dL (6.4-8.2)
[2023-05-22] MEDS: cefTRIAXone 1GM/50ML D5W 50 ML IV SCH (08:55)
[2023-05-22] MEDS: FOLIC ACID 1 MG TAB PO SCH (10:00)
[2023-05-22] MEDS: CARVEDILOL 12.5 MG TAB PO SCH ×2 (10:00→21:55)
[2023-05-22] MEDS: APIXABAN 5 MG TAB PO SCH ×2 (10:00→21:55)
[2023-05-22] MEDS: CLOPIDOGREL BISULFATE 75 MG TAB PO SCH (10:00)
[2023-05-22] MEDS: SACUBITRIL-VALSARTAN 24mg/26mg TAB PO SCH ×2 (10:00→21:55)
[2023-05-22] MEDS: FUROSEMIDE 20 MG/2 ML VIAL IV SCH (10:18)
[2023-05-22] MEDS: POTASSIUM CHL 20MEQ/100ML 100 ML IV SCH ×2 (10:28→15:05)
[2023-05-22] MEDS: NIFEdipine ER 30 MG TAB PO SCH (11:30)
[2023-05-22] MEDS ORDERED: DEXTROSE (50%) 50ML SYRG IV SCH (12:00)
[2023-05-22] MEDS: VANCOMYCIN 1GM/250ML 250 ML IV SCH (14:41)
[2023-05-22] MEDS ORDERED: PPN PER PHARMACY IV NR ×10 (20:00)
[2023-05-22] MEDS: ATORVASTATIN 20 MG TAB PO SCH (21:55)
[2023-05-22] MEDS: DOCUSATE SOD 100 MG CAP PO SCH (21:55)
[2023-05-23] VITALS (7 sets, daily range): BP systolic 145–160; BP diastolic 68–82; PULSE 92–101; RESP 16–21; TEMP 97.5–99.5; O2SAT 94–100
[2023-05-23] MEDS: ACCU-CHEK COMFORT CURVE STRIP VI SCH ×5 (00:08→18:22)
[2023-05-23] MEDS: InsuLIN REG 1unit/0.01ml Soln (100units/ml) SC SCH ×4 (00:14→18:29)
[2023-05-23 05:50] LABS: Potassium 3.7 mmol/L (3.5-5.1)
[2023-05-23 05:56] LABS: Albumin 2.3 g/dL (3.4-5.0); BUN/Creatinine Ratio 33.1 (10.0-20.0); Bilirubin, Total 0.9 mg/dL (0.2-1.0); Calcium 8.6 mg/dL (8.5-10.1); Magnesium 2.4 mg/dL (1.6-2.6); Phosphorus 3.1 mg/dL (2.5-4.90); Total Protein 5.6 g/dL (6.4-8.2)
[2023-05-23] MEDS: VANCOMYCIN 1GM/250ML 250 ML IV SCH ×2 (06:43→18:23)
[2023-05-23] MEDS: EMPAGLIFLOZIN 10 MG TAB PO SCH (07:00)
[2023-05-23] MEDS: FUROSEMIDE 20 MG/2 ML VIAL IV SCH (09:21)
[2023-05-23] MEDS: cefTRIAXone 1GM/50ML D5W 50 ML IV SCH (09:21)
[2023-05-23] MEDS: DOCUSATE SOD 100 MG CAP PO SCH ×2 (10:00→21:59)
[2023-05-23] MEDS: APIXABAN 5 MG TAB PO SCH ×2 (10:00→22:00)
[2023-05-23] MEDS: FOLIC ACID 1 MG TAB PO SCH (10:00)
[2023-05-23] MEDS: CARVEDILOL 12.5 MG TAB PO SCH ×2 (10:00→22:00)
[2023-05-23] MEDS: CLOPIDOGREL BISULFATE 75 MG TAB PO SCH (10:00)
[2023-05-23] MEDS: NIFEdipine ER 30 MG TAB PO SCH (10:00)
[2023-05-23] MEDS: SACUBITRIL-VALSARTAN 24mg/26mg TAB PO SCH ×2 (10:00→22:00)
[2023-05-23] MEDS ORDERED: PPN PER PHARMACY IV NR ×10 (20:00)
[2023-05-23] MEDS: hydrALAZINE HCL 20 MG/ML VL IV PRN (21:52)
[2023-05-23] MEDS: ATORVASTATIN 20 MG TAB PO SCH (22:00)
[2023-05-24] MEDS: InsuLIN REG 1unit/0.01ml Soln (100units/ml) SC SCH ×5 (00:40→23:54)
[2023-05-24] MEDS: hydrALAZINE HCL 20 MG/ML VL IV PRN (04:04)
[2023-05-24 04:50] VITALS: BP 186/115; PULSE 109; RESP 24; TEMP 99.2; O2SAT 95
[2023-05-24] MEDS: VANCOMYCIN 1GM/250ML 250 ML IV SCH ×2 (05:58→17:20)
[2023-05-24] MEDS: ACCU-CHEK COMFORT CURVE STRIP VI SCH ×4 (06:01→23:54)
[2023-05-24] MEDS: EMPAGLIFLOZIN 10 MG TAB PO SCH (06:01)
[2023-05-24 06:03] LABS: Potassium 3.9 mmol/L (3.5-5.1)
[2023-05-24 06:09] LABS: Albumin 2.3 g/dL (3.4-5.0); BUN/Creatinine Ratio 32.8 (10.0-20.0); Bilirubin, Total 1.5 mg/dL (0.2-1.0); Calcium 8.8 mg/dL (8.5-10.1); Magnesium 2.6 mg/dL (1.6-2.6); Phosphorus 2.8 mg/dL (2.5-4.90)
[2023-05-24 08:49] VITALS: BP 147/73; PULSE 97; RESP 15; TEMP 97.6; O2SAT 95
[2023-05-24] MEDS: cefTRIAXone 1GM/50ML D5W 50 ML IV SCH (09:06)
[2023-05-24] MEDS: DOCUSATE SOD 100 MG CAP PO SCH ×2 (09:06→21:41)
[2023-05-24] MEDS: CARVEDILOL 12.5 MG TAB PO SCH ×2 (09:06→21:41)
[2023-05-24] MEDS: FOLIC ACID 1 MG TAB PO SCH (09:06)
[2023-05-24] MEDS: FUROSEMIDE 20 MG/2 ML VIAL IV SCH (09:06)
[2023-05-24] MEDS: CLOPIDOGREL BISULFATE 75 MG TAB PO SCH (09:07)
[2023-05-24] MEDS: NIFEdipine ER 30 MG TAB PO SCH (09:07)
[2023-05-24] MEDS: SACUBITRIL-VALSARTAN 24mg/26mg TAB PO SCH ×2 (09:07→21:41)
[2023-05-24] MEDS: APIXABAN 5 MG TAB PO SCH (09:07)
[2023-05-24 13:00] VITALS: BP 148/77; PULSE 93; RESP 15; TEMP 97.3; O2SAT 100
[2023-05-24 16:47] VITALS: BP 156/92; PULSE 102; RESP 15; TEMP 97.3; O2SAT 95
[2023-05-24] MEDS: HEPARIN SODIUM (PORCINE) 5000 UNITS/ML 1ML VIAL SC SCH ×2 (17:26→21:29)
[2023-05-24 20:00] VITALS: PULSE 103
[2023-05-24] MEDS ORDERED: PPN PER PHARMACY IV NR ×10 (20:00)
[2023-05-24] MEDS: ATORVASTATIN 20 MG TAB PO SCH (21:42)
[2023-05-24 22:21] VITALS: BP 101/74; PULSE 110; RESP 63; TEMP 99.8; O2SAT 95
[2023-05-25] VITALS (8 sets, daily range): BP systolic 91–161; BP diastolic 48–80; PULSE 53–114; RESP 18–24; TEMP 97.9–100.2; O2SAT 96–100
[2023-05-25] MEDS: hydrALAZINE HCL 20 MG/ML VL IV PRN (05:27)
[2023-05-25] MEDS: EMPAGLIFLOZIN 10 MG TAB PO SCH (06:09)
[2023-05-25 06:29] LABS: Basophils # (auto) 0 10 ^3/uL (0-0.2); Basophils % (auto) 0.4 % (0.0-2.0); Eosinophils # (auto) 0.1 10 ^3/uL (0-0.8); Eosinophils % (auto) 0.8 % (0.0-7.0); Hematocrit 40.8 % (41.0-53.0); Hemoglobin 13.5 g/dL (13.5-17.5); Lymphocytes # (auto) 0.6 10 ^3/uL (0.4-5.4); Mean Corpuscular Hemoglobin 30.7 pg (28.0-32.0); Monocytes # (auto) 1.3 10 ^3/uL (0-1.3); Monocytes % (auto) 11.7 % (0.0-12.0); Neutrophils # (auto) 8.8 10 ^3/uL (1.6-8.6); Neutrophils % (auto) 81.1 % (37.0-80.0); Red Blood Cells 4.39 10^6/uL (4.5-5.90); Red Cell Distribution Width 15.8 % (11.8-14.3); White Blood Cell 10.8 10^3/uL (4.4-10.8)
[2023-05-25] MEDS: HEPARIN SODIUM (PORCINE) 5000 UNITS/ML 1ML VIAL SC SCH ×3 (06:29→22:12)
[2023-05-25] MEDS: ACCU-CHEK COMFORT CURVE STRIP VI SCH ×4 (06:29→23:22)
[2023-05-25] MEDS: InsuLIN REG 1unit/0.01ml Soln (100units/ml) SC SCH ×4 (06:31→23:23)
[2023-05-25 06:33] LABS: Potassium 4.1 mmol/L (3.5-5.1)
[2023-05-25 06:45] LABS: Albumin 1.9 g/dL (3.4-5.0); BUN/Creatinine Ratio 41.4 (10.0-20.0); Bilirubin, Total 1.8 mg/dL (0.2-1.0); Calcium 8.5 mg/dL (8.5-10.1); Magnesium 2.7 mg/dL (1.6-2.6); Phosphorus 3.2 mg/dL (2.5-4.90); Total Protein 6.4 g/dL (6.4-8.2)
[2023-05-25] MEDS: VANCOMYCIN 1GM/250ML 250 ML IV SCH (06:45)
[2023-05-25] MEDS: cefTRIAXone 1GM/50ML D5W 50 ML IV SCH (08:30)
[2023-05-25] MEDS: FOLIC ACID 1 MG TAB PO SCH (10:27)
[2023-05-25] MEDS: CARVEDILOL 12.5 MG TAB PO SCH ×2 (10:27→22:00)
[2023-05-25] MEDS: SACUBITRIL-VALSARTAN 24mg/26mg TAB PO SCH ×2 (10:27→22:00)
[2023-05-25] MEDS: FUROSEMIDE 20 MG/2 ML VIAL IV SCH (10:28)
[2023-05-25] MEDS: PANTOPRAZOLE 40 MG/10 ML VIAL INJ IV SCH (10:28)
[2023-05-25] MEDS: CLOPIDOGREL BISULFATE 75 MG TAB PO SCH (10:28)
[2023-05-25] MEDS: DOCUSATE SOD 100 MG CAP PO SCH ×2 (10:28→22:00)
[2023-05-25] MEDS ORDERED: LORazepam 2MG/ML-1ML VIAL IV PRN (10:30)
[2023-05-25] MEDS: NIFEdipine ER 30 MG TAB PO SCH (11:42)
[2023-05-25] MEDS ORDERED: VANCOMYCIN 1GM/250ML 0 ML IV ONE (17:25)
[2023-05-25] MEDS: VANCOMYCIN 500 MG in D5W 5% 100 ML IV SCH (17:56)
[2023-05-25] MEDS ORDERED: PPN PER PHARMACY IV NR ×8 (20:00)
[2023-05-25] MEDS: ATORVASTATIN 20 MG TAB PO SCH (22:00)
[2023-05-26] VITALS (7 sets, daily range): BP systolic 93–105; BP diastolic 48–61; PULSE 73–89; RESP 15–18; TEMP 97.3–98.8; O2SAT 90–100
[2023-05-26] MEDS: HEPARIN SODIUM (PORCINE) 5000 UNITS/ML 1ML VIAL SC SCH ×3 (05:29→21:18)
[2023-05-26] MEDS: InsuLIN REG 1unit/0.01ml Soln (100units/ml) SC SCH ×4 (05:30→23:45)
[2023-05-26] MEDS: ACCU-CHEK COMFORT CURVE STRIP VI SCH ×4 (05:30→23:43)
[2023-05-26] MEDS: EMPAGLIFLOZIN 10 MG TAB PO SCH (06:43)
[2023-05-26 07:46] LABS: Albumin 1.9 g/dL (3.4-5.0); Calcium 8.6 mg/dL (8.5-10.1)
[2023-05-26 07:52] LABS: BUN/Creatinine Ratio 40.9 (10.0-20.0); Bilirubin, Total 1.8 mg/dL (0.2-1.0); Magnesium 2.5 mg/dL (1.6-2.6); Phosphorus 5.2 mg/dL (2.5-4.90); Total Protein 6.3 g/dL (6.4-8.2)
[2023-05-26] MEDS: PANTOPRAZOLE 40 MG/10 ML VIAL INJ IV SCH (09:46)
[2023-05-26] MEDS: cefTRIAXone 1GM/50ML D5W 50 ML IV SCH (09:46)
[2023-05-26] MEDS: FOLIC ACID 1 MG TAB PO SCH (10:00)
[2023-05-26] MEDS: SACUBITRIL-VALSARTAN 24mg/26mg TAB PO SCH ×2 (10:00→21:19)
[2023-05-26] MEDS: CLOPIDOGREL BISULFATE 75 MG TAB PO SCH (10:00)
[2023-05-26] MEDS: DOCUSATE SOD 100 MG CAP PO SCH ×2 (10:00→21:19)
[2023-05-26] MEDS: NIFEdipine ER 30 MG TAB PO SCH (10:00)
[2023-05-26] MEDS: CARVEDILOL 12.5 MG TAB PO SCH ×2 (10:00→21:19)
[2023-05-26] MEDS: FUROSEMIDE 20 MG/2 ML VIAL IV SCH (10:00)
[2023-05-26] MEDS: VANCOMYCIN 500 MG in D5W 5% 100 ML IV SCH (12:48)
[2023-05-26] MEDS ORDERED: PPN PER PHARMACY IV NR ×16 (20:00)
[2023-05-26] MEDS: ATORVASTATIN 20 MG TAB PO SCH (21:19)
[2023-05-27 05:00] VITALS: BP 100/60; PULSE 94; RESP 18; TEMP 98.1; O2SAT 96
[2023-05-27] MEDS: ACCU-CHEK COMFORT CURVE STRIP VI SCH ×4 (05:38→23:48)
[2023-05-27] MEDS: InsuLIN REG 1unit/0.01ml Soln (100units/ml) SC SCH ×4 (05:41→23:48)
[2023-05-27] MEDS: HEPARIN SODIUM (PORCINE) 5000 UNITS/ML 1ML VIAL SC SCH ×3 (05:45→22:31)
[2023-05-27] MEDS: VANCOMYCIN 500 MG in D5W 5% 100 ML IV SCH (06:00)
[2023-05-27] MEDS: EMPAGLIFLOZIN 10 MG TAB PO SCH (06:36)
[2023-05-27 07:31] LABS: Albumin 1.9 g/dL (3.4-5.0); BUN/Creatinine Ratio 45.5 (10.0-20.0); Calcium 8.3 mg/dL (8.5-10.1); Magnesium 2.3 mg/dL (1.6-2.6)
[2023-05-27 07:34] LABS: Bilirubin, Total 2.1 mg/dL (0.2-1.0); Phosphorus 4.8 mg/dL (2.5-4.90)
[2023-05-27 08:00] VITALS: PULSE 92; PULSE 96; RESP 16
[2023-05-27 08:57] VITALS: BP 104/51; PULSE 92; RESP 16; TEMP 98.5; O2SAT 94
[2023-05-27] MEDS: CLOPIDOGREL BISULFATE 75 MG TAB PO SCH (10:00)
[2023-05-27] MEDS: CARVEDILOL 12.5 MG TAB PO SCH ×2 (10:00→22:00)
[2023-05-27] MEDS: NIFEdipine ER 30 MG TAB PO SCH (10:00)
[2023-05-27] MEDS: cefTRIAXone 1GM/50ML D5W 50 ML IV SCH (10:00)
[2023-05-27] MEDS ORDERED: VANCOMYCIN 500 MG in D5W 5% 100 ML IV SCH (10:00)
[2023-05-27] MEDS: FOLIC ACID 1 MG TAB PO SCH (10:00)
[2023-05-27] MEDS: SACUBITRIL-VALSARTAN 24mg/26mg TAB PO SCH ×2 (10:00→22:00)
[2023-05-27] MEDS: DOCUSATE SOD 100 MG CAP PO SCH ×2 (10:00→22:00)
[2023-05-27] MEDS: PANTOPRAZOLE 40 MG/10 ML VIAL INJ IV SCH (10:01)
[2023-05-27] MEDS: FUROSEMIDE 20 MG/2 ML VIAL IV SCH (10:02)
[2023-05-27] MEDS: SODIUM CHLORIDE 0.9% 1,000 ML IV SCH (12:22)
[2023-05-27] MEDS: DOPamine 1600MCG/ML D5W 250 ML IV SCH (14:57)
[2023-05-27 16:44] LABS: Protein, Urine 26.5 mg/dL (0.0-11.9); Urine Protein/Creatinine Ratio 0.49
[2023-05-27 17:00] VITALS: BP 128/69; PULSE 91; RESP 22; TEMP 98.8; O2SAT 95
[2023-05-27 20:00] VITALS: PULSE 95; PULSE 97; RESP 18
[2023-05-27] MEDS ORDERED: PPN PER PHARMACY IV NR ×9 (20:00)
[2023-05-27 22:00] VITALS: BP 104/58; PULSE 97; RESP 18; TEMP 98.5; O2SAT 100
[2023-05-27] MEDS: ATORVASTATIN 20 MG TAB PO SCH (22:00)
[2023-05-28] VITALS (7 sets, daily range): BP systolic 101–126; BP diastolic 57–72; PULSE 72–96; RESP 17–24; TEMP 97.4–100; O2SAT 93–97
[2023-05-28] MEDS: SODIUM CHLORIDE 0.9% 1,000 ML IV SCH ×3 (02:16→23:47)
[2023-05-28 05:39] LABS: Albumin 1.9 g/dL (3.4-5.0); BUN/Creatinine Ratio 54.3 (10.0-20.0); Calcium 8.8 mg/dL (8.5-10.1); Magnesium 2.5 mg/dL (1.6-2.6); Potassium 4.4 mmol/L (3.5-5.1)
[2023-05-28 05:42] LABS: Bilirubin, Total 2.5 mg/dL (0.2-1.0); Phosphorus 2.6 mg/dL (2.5-4.90); Total Protein 6.3 g/dL (6.4-8.2)
[2023-05-28] MEDS: InsuLIN REG 1unit/0.01ml Soln (100units/ml) SC SCH ×4 (05:59→23:47)
[2023-05-28] MEDS: ACCU-CHEK COMFORT CURVE STRIP VI SCH ×4 (06:22→23:44)
[2023-05-28] MEDS: HEPARIN SODIUM (PORCINE) 5000 UNITS/ML 1ML VIAL SC SCH ×3 (06:25→20:40)
[2023-05-28] MEDS: EMPAGLIFLOZIN 10 MG TAB PO SCH (07:00)
[2023-05-28] MEDS: PANTOPRAZOLE 40 MG/10 ML VIAL INJ IV SCH (09:27)
[2023-05-28] MEDS: cefTRIAXone 1GM/50ML D5W 50 ML IV SCH (09:28)
[2023-05-28] MEDS: DOCUSATE SOD 100 MG CAP PO SCH ×2 (10:00→22:00)
[2023-05-28] MEDS: FOLIC ACID 1 MG TAB PO SCH (10:00)
[2023-05-28] MEDS: CLOPIDOGREL BISULFATE 75 MG TAB PO SCH (10:00)
[2023-05-28] MEDS: CARVEDILOL 12.5 MG TAB PO SCH ×2 (10:00→22:00)
[2023-05-28] MEDS: SACUBITRIL-VALSARTAN 24mg/26mg TAB PO SCH ×2 (10:00→22:00)
[2023-05-28 17:19] LABS: INR 1.26 (0.9-1.15); Partial Thromboplastin Time 41.7 SEC (24.5-34.5)
[2023-05-28] MEDS ORDERED: LIDOCAINE 1% (LOCAL ANESTH.) PF 5ml SDV ID ONE (18:45)
[2023-05-28] MEDS ORDERED: PPN PER PHARMACY IV NR ×19 (20:00)
[2023-05-28] MEDS: SODIUM CHLOR 0.9% PF (SALINE LOCK) 10ML VIAL/SYR IV SCH (20:36)
[2023-05-28] MEDS: ATORVASTATIN 20 MG TAB PO SCH (22:00)
[2023-05-29] VITALS (7 sets, daily range): BP systolic 111–131; BP diastolic 60–72; PULSE 82–94; RESP 16–26; TEMP 98.3–99.1; O2SAT 92–98
[2023-05-29] MEDS: ACCU-CHEK COMFORT CURVE STRIP VI SCH ×4 (06:01→23:29)
[2023-05-29] MEDS: HEPARIN SODIUM (PORCINE) 5000 UNITS/ML 1ML VIAL SC SCH ×3 (06:13→21:16)
[2023-05-29 06:28] LABS: Hematocrit 36.1 % (41.0-53.0); Hemoglobin 12.1 g/dL (13.5-17.5); Mean Corpuscular Hgb Conc. 33.5 g/dL (32.0-36.0); Mean Corpuscular Volume 92.5 fL (80.0-100.0); Red Blood Cells 3.91 10^6/uL (4.5-5.90); Red Cell Distribution Width 15.5 % (11.8-14.3)
[2023-05-29] MEDS: InsuLIN REG 1unit/0.01ml Soln (100units/ml) SC SCH ×4 (06:33→23:35)
[2023-05-29] MEDS: EMPAGLIFLOZIN 10 MG TAB PO SCH (06:35)
[2023-05-29 06:49] LABS: Band Neutrophils % (manual) 0; Basophils % (manual) 0 (0.0-2.0); Blast Cells 0; Metamyelocytes % 0; Myelocytes % 0; Promyelocytes % 0; Reactive Lymphocytes 0
[2023-05-29 07:03] LABS: Calcium 8.4 mg/dL (8.5-10.1); Magnesium 2.5 mg/dL (1.6-2.6); Potassium 4.8 mmol/L (3.5-5.1)
[2023-05-29 07:09] LABS: Albumin 1.6 g/dL (3.4-5.0); Bilirubin, Total 1.9 mg/dL (0.2-1.0); Total Protein 5.8 g/dL (6.4-8.2)
[2023-05-29 07:44] LABS: Eosinophils % (manual) 2 (0-7); Giant Platelets Few; Hypersegmented Neutrophils Present; Lymphocytes % (manual) 9 (10.0-50.0); Monocytes % (manual) 10 (0-12); Platelet Estimate Adequate
[2023-05-29] MEDS: SODIUM CHLORIDE 0.9% 1,000 ML IV SCH ×2 (08:49→18:18)
[2023-05-29] MEDS: cefTRIAXone 1GM/50ML D5W 50 ML IV SCH (08:49)
[2023-05-29] MEDS: PANTOPRAZOLE 40 MG/10 ML VIAL INJ IV SCH (08:50)
[2023-05-29] MEDS: FOLIC ACID 1 MG TAB PO SCH (08:51)
[2023-05-29] MEDS: DOCUSATE SOD 100 MG CAP PO SCH ×2 (08:51→21:26)
[2023-05-29] MEDS: SACUBITRIL-VALSARTAN 24mg/26mg TAB PO SCH ×2 (08:51→21:27)
[2023-05-29] MEDS: CLOPIDOGREL BISULFATE 75 MG TAB PO SCH (08:51)
[2023-05-29] MEDS: SODIUM CHLOR 0.9% PF (SALINE LOCK) 10ML VIAL/SYR IV SCH ×2 (08:51→21:17)
[2023-05-29] MEDS: CARVEDILOL 12.5 MG TAB PO SCH ×2 (08:51→21:26)
[2023-05-29 09:27] LABS: Hepatitis B Surface Antibody Negative (Negative)
[2023-05-29] MEDS: DOPamine 1600MCG/ML D5W 250 ML IV SCH ×2 (09:54→14:00)
[2023-05-29 10:02] LABS: Hepatitis A Total Antibody Positive (Negative)
[2023-05-29 10:25] LABS: Hepatitis B Core Total AB Negative (Negative); Hepatitis B Surface Antigen Negative (Negative); Hepatitis C Antibody Negative (Negative)
[2023-05-29] MEDS: ALBUMIN 25% 100 ML IV SCH ×2 (11:26→21:06)
[2023-05-29] MEDS: TPN PER PHARMACY IV NR ×8 (20:31)
[2023-05-29] MEDS: ATORVASTATIN 20 MG TAB PO SCH (21:27)
[2023-05-30] VITALS (7 sets, daily range): BP systolic 131–154; BP diastolic 65–82; PULSE 95–114; RESP 16–24; TEMP 97.8–99.7; O2SAT 96–100
[2023-05-30] MEDS: ALBUMIN 25% 100 ML IV SCH (04:09)
[2023-05-30] MEDS: SODIUM CHLORIDE 0.9% 1,000 ML IV SCH ×2 (04:15→14:10)
[2023-05-30] MEDS: hydrALAZINE HCL 20 MG/ML VL IV PRN (05:23)
[2023-05-30] MEDS: ACCU-CHEK COMFORT CURVE STRIP VI SCH ×4 (05:25→23:30)
[2023-05-30] MEDS: HEPARIN SODIUM (PORCINE) 5000 UNITS/ML 1ML VIAL SC SCH ×3 (05:29→21:12)
[2023-05-30] MEDS: InsuLIN REG 1unit/0.01ml Soln (100units/ml) SC SCH ×4 (05:29→23:31)
[2023-05-30 06:16] LABS: Potassium 4.3 mmol/L (3.5-5.1)
[2023-05-30 06:25] LABS: Albumin 2.7 g/dL (3.4-5.0); BUN/Creatinine Ratio 47.2 (10.0-20.0); Bilirubin, Total 2.2 mg/dL (0.2-1.0); Calcium 8.7 mg/dL (8.5-10.1); Magnesium 2.6 mg/dL (1.6-2.6); Phosphorus 2.5 mg/dL (2.5-4.90); Total Protein 6.1 g/dL (6.4-8.2)
[2023-05-30] MEDS: EMPAGLIFLOZIN 10 MG TAB PO SCH (06:35)
[2023-05-30] MEDS: DOCUSATE SOD 100 MG CAP PO SCH ×2 (10:00→21:25)
[2023-05-30] MEDS: CARVEDILOL 12.5 MG TAB PO SCH ×2 (10:00→21:26)
[2023-05-30] MEDS: FOLIC ACID 1 MG TAB PO SCH (10:00)
[2023-05-30] MEDS: CLOPIDOGREL BISULFATE 75 MG TAB PO SCH (10:00)
[2023-05-30] MEDS: SACUBITRIL-VALSARTAN 24mg/26mg TAB PO SCH ×2 (10:00→21:26)
[2023-05-30] MEDS: PANTOPRAZOLE 40 MG/10 ML VIAL INJ IV SCH (10:56)
[2023-05-30] MEDS: SODIUM CHLOR 0.9% PF (SALINE LOCK) 10ML VIAL/SYR IV SCH ×2 (10:57→21:08)
[2023-05-30] MEDS: HYDROcodone-ACET 5/325MG TAB PO PRN (11:10)
[2023-05-30] MEDS: DOPamine 1600MCG/ML D5W 250 ML IV SCH (14:03)
[2023-05-30] MEDS ORDERED: TPN PER PHARMACY IV NR ×8 (20:00)
[2023-05-30] MEDS: ATORVASTATIN 20 MG TAB PO SCH ×2 (20:15→21:26)
[2023-05-30] MEDS: TPN PER PHARMACY IV NR ×8 (20:21)
[2023-05-31] VITALS (8 sets, daily range): BP systolic 118–164; BP diastolic 64–96; PULSE 79–114; RESP 20–24; TEMP 97.9–98.5; O2SAT 97–98
[2023-05-31] MEDS: SODIUM CHLORIDE 0.9% 1,000 ML IV SCH ×2 (00:15→04:40)
[2023-05-31] MEDS: hydrALAZINE HCL 20 MG/ML VL IV PRN ×2 (04:51→13:15)
[2023-05-31 06:06] LABS: Potassium 4.1 mmol/L (3.5-5.1)
[2023-05-31 06:14] LABS: Albumin 2.4 g/dL (3.4-5.0); BUN/Creatinine Ratio 42.1 (10.0-20.0); Bilirubin, Total 2.5 mg/dL (0.2-1.0); Calcium 8.9 mg/dL (8.5-10.1); Magnesium 2.2 mg/dL (1.6-2.6); Phosphorus 2.8 mg/dL (2.5-4.90); Total Protein 6.3 g/dL (6.4-8.2)
[2023-05-31] MEDS: ACCU-CHEK COMFORT CURVE STRIP VI SCH ×3 (06:25→17:03)
[2023-05-31] MEDS: EMPAGLIFLOZIN 10 MG TAB PO SCH (06:28)
[2023-05-31] MEDS: HEPARIN SODIUM (PORCINE) 5000 UNITS/ML 1ML VIAL SC SCH ×3 (06:35→21:43)
[2023-05-31] MEDS: InsuLIN REG 1unit/0.01ml Soln (100units/ml) SC SCH ×3 (06:35→17:06)
[2023-05-31] MEDS: SOD CHL 0.45% 1,000 ML IV SCH ×2 (08:36→17:03)
[2023-05-31] MEDS: DOCUSATE SOD 100 MG CAP PO SCH ×2 (10:57→21:44)
[2023-05-31] MEDS: SODIUM CHLOR 0.9% PF (SALINE LOCK) 10ML VIAL/SYR IV SCH ×2 (11:02→21:30)
[2023-05-31] MEDS: HYDROcodone-ACET 5/325MG TAB PO PRN (11:03)
[2023-05-31] MEDS: CLOPIDOGREL BISULFATE 75 MG TAB PO SCH (11:05)
[2023-05-31] MEDS: SACUBITRIL-VALSARTAN 24mg/26mg TAB PO SCH ×2 (11:10→21:28)
[2023-05-31] MEDS: PANTOPRAZOLE 40 MG/10 ML VIAL INJ IV SCH (11:10)
[2023-05-31] MEDS: FOLIC ACID 1 MG TAB PO SCH (11:10)
[2023-05-31] MEDS: CARVEDILOL 12.5 MG TAB PO SCH ×2 (11:10→21:29)
[2023-05-31] MEDS ORDERED: POTASSIUM PHOSPHATE IV NR ×8 (20:00)
[2023-05-31] MEDS ORDERED: MAGNESIUM SULF IV NR ×8 (20:00)
[2023-05-31] MEDS ORDERED: FAT EMULSION IV NR ×8 (20:00)
[2023-05-31] MEDS ORDERED: [UNRECOGNIZED DRUG - OTHER] IV NR ×8 (20:00)
[2023-05-31] MEDS: ACETAMINOPHEN 325 MG TAB PO PRN (21:28)
[2023-05-31] MEDS: ATORVASTATIN 20 MG TAB PO SCH (21:28)
[2023-06-01] VITALS (7 sets, daily range): BP systolic 103–142; BP diastolic 56–83; PULSE 80–96; RESP 18–26; TEMP 97.3–97.9; O2SAT 94–100
[2023-06-01] MEDS: InsuLIN REG 1unit/0.01ml Soln (100units/ml) SC SCH ×5 (05:33→23:58)
[2023-06-01] MEDS: SOD CHL 0.45% 1,000 ML IV SCH ×3 (05:34→23:58)
[2023-06-01] MEDS: ACCU-CHEK COMFORT CURVE STRIP VI SCH ×5 (05:46→23:58)
[2023-06-01] MEDS: HEPARIN SODIUM (PORCINE) 5000 UNITS/ML 1ML VIAL SC SCH ×3 (05:46→23:55)
[2023-06-01 06:28] LABS: Albumin 2.2 g/dL (3.4-5.0); BUN/Creatinine Ratio 38.3 (10.0-20.0); Calcium 8.7 mg/dL (8.5-10.1); Potassium 3.7 mmol/L (3.5-5.1)
[2023-06-01 06:32] LABS: Bilirubin, Total 2.6 mg/dL (0.2-1.0); Phosphorus 3.6 mg/dL (2.5-4.90); Total Protein 5.9 g/dL (6.4-8.2)
[2023-06-01] MEDS: EMPAGLIFLOZIN 10 MG TAB PO SCH (06:47)
[2023-06-01] MEDS: SACUBITRIL-VALSARTAN 24mg/26mg TAB PO SCH ×2 (10:00→22:00)
[2023-06-01] MEDS: DOCUSATE SOD 100 MG CAP PO SCH ×2 (10:00→22:00)
[2023-06-01] MEDS: SODIUM CHLOR 0.9% PF (SALINE LOCK) 10ML VIAL/SYR IV SCH ×2 (10:21→21:38)
[2023-06-01] MEDS: PANTOPRAZOLE 40 MG/10 ML VIAL INJ IV SCH (10:21)
[2023-06-01] MEDS: ACETAMINOPHEN 325 MG TAB PO PRN (10:21)
[2023-06-01] MEDS: CARVEDILOL 12.5 MG TAB PO SCH ×2 (10:21→22:00)
[2023-06-01] MEDS: FOLIC ACID 1 MG TAB PO SCH (10:21)
[2023-06-01] MEDS: predniSONE 5 MG TAB PO SCH (10:22)
[2023-06-01] MEDS: CLOPIDOGREL BISULFATE 75 MG TAB PO SCH (10:22)
[2023-06-01] MEDS ORDERED: FAT EMULSION IV NR ×9 (20:00)
[2023-06-01] MEDS ORDERED: POTASSIUM PHOSPHATE IV NR ×9 (20:00)
[2023-06-01] MEDS ORDERED: [UNRECOGNIZED DRUG - OTHER] IV NR ×9 (20:00)
[2023-06-01] MEDS ORDERED: POTASSIUM ACETATE IV NR ×9 (20:00)
[2023-06-01] MEDS: ATORVASTATIN 20 MG TAB PO SCH (22:00)
[2023-06-02] VITALS (9 sets, daily range): BP systolic 118–148; BP diastolic 57–85; PULSE 80–97; RESP 18–24; TEMP 36.9; O2SAT 95–100
[2023-06-02 06:36] LABS: Potassium 4.1 mmol/L (3.5-5.1)
[2023-06-02] MEDS: ACCU-CHEK COMFORT CURVE STRIP VI SCH ×3 (06:36→18:06)
[2023-06-02] MEDS: InsuLIN REG 1unit/0.01ml Soln (100units/ml) SC SCH ×3 (06:38→18:07)
[2023-06-02] MEDS: HEPARIN SODIUM (PORCINE) 5000 UNITS/ML 1ML VIAL SC SCH ×3 (06:38→22:51)
[2023-06-02] MEDS: EMPAGLIFLOZIN 10 MG TAB PO SCH (06:39)
[2023-06-02 06:46] LABS: Albumin 2.1 g/dL (3.4-5.0); BUN/Creatinine Ratio 36.5 (10.0-20.0); Bilirubin, Total 1.8 mg/dL (0.2-1.0); Calcium 8.4 mg/dL (8.5-10.1); Magnesium 2.2 mg/dL (1.6-2.6); Phosphorus 3.4 mg/dL (2.5-4.90); Total Protein 5.7 g/dL (6.4-8.2)
[2023-06-02 08:07] LABS: AFP Serum Tumor Marker <1.8 ng/mL (0.0-8.4); Carbohydrate Antigen 19-9 10 U/mL (0-35)
[2023-06-02] MEDS: DOCUSATE SOD 100 MG CAP PO SCH ×3 (10:00→22:00)
[2023-06-02] MEDS: SODIUM CHLOR 0.9% PF (SALINE LOCK) 10ML VIAL/SYR IV SCH ×2 (10:07→20:46)
[2023-06-02] MEDS: predniSONE 5 MG TAB PO SCH (10:07)
[2023-06-02] MEDS: SACUBITRIL-VALSARTAN 24mg/26mg TAB PO SCH ×2 (10:07→22:00)
[2023-06-02] MEDS: CLOPIDOGREL BISULFATE 75 MG TAB PO SCH (10:07)
[2023-06-02] MEDS: PANTOPRAZOLE 40 MG/10 ML VIAL INJ IV SCH (10:07)
[2023-06-02] MEDS: FOLIC ACID 1 MG TAB PO SCH (10:08)
[2023-06-02] MEDS: CARVEDILOL 12.5 MG TAB PO SCH ×3 (10:08→22:42)
[2023-06-02] MEDS: SOD CHL 0.45% 1,000 ML IV SCH ×2 (10:19→20:45)
[2023-06-02] MEDS ORDERED: TPN PER PHARMACY 0 ML IV SCH (13:30)
[2023-06-02] MEDS ORDERED: TPN PER PHARMACY IV NR ×10 (20:00)
[2023-06-02] MEDS: ATORVASTATIN 20 MG TAB PO SCH (22:00)
[2023-06-02] MEDS: MEGESTROL ACET 400MG/10ML ORAL SUSP PO SCH (22:00)
[2023-06-02 23:09] LABS: Base Excess -6.5 mmol/L (-2.0-2.0)
[2023-06-03] VITALS (8 sets, daily range): BP systolic 118–152; BP diastolic 57–81; PULSE 58–89; RESP 18–20; TEMP 36.3; O2SAT 92–98
[2023-06-03] MEDS: ACCU-CHEK COMFORT CURVE STRIP VI SCH ×4 (00:32→17:53)
[2023-06-03] MEDS: InsuLIN REG 1unit/0.01ml Soln (100units/ml) SC SCH ×4 (00:36→17:56)
[2023-06-03] MEDS: SOD CHL 0.45% 1,000 ML IV SCH (06:22)
[2023-06-03] MEDS: EMPAGLIFLOZIN 10 MG TAB PO SCH (06:22)
[2023-06-03] MEDS: HEPARIN SODIUM (PORCINE) 5000 UNITS/ML 1ML VIAL SC SCH ×3 (06:24→22:45)
[2023-06-03 07:39] LABS: Hematocrit 29.4 % (41.0-53.0); Hemoglobin 9.7 g/dL (13.5-17.5); Mean Corpuscular Hemoglobin 30.6 pg (28.0-32.0); Mean Corpuscular Hgb Conc. 32.9 g/dL (32.0-36.0); Red Blood Cells 3.16 10^6/uL (4.5-5.90); Red Cell Distribution Width 15.3 % (11.8-14.3); White Blood Cell 8.8 10^3/uL (4.4-10.8)
[2023-06-03 07:51] LABS: Basophils % (manual) 0 (0.0-2.0); Blast Cells 0; Metamyelocytes % 0; Myelocytes % 0; Promyelocytes % 0; Reactive Lymphocytes 0
[2023-06-03] MEDS: DOCUSATE SOD 100 MG CAP PO SCH ×2 (08:01→22:00)
[2023-06-03 08:08] LABS: Albumin 2.1 g/dL (3.4-5.0); Calcium 8.4 mg/dL (8.5-10.1); Magnesium 2.4 mg/dL (1.6-2.6); Potassium 4.3 mmol/L (3.5-5.1)
[2023-06-03 08:11] LABS: BUN/Creatinine Ratio 35.3 (10.0-20.0); Bilirubin, Total 1.2 mg/dL (0.2-1.0); Phosphorus 3.3 mg/dL (2.5-4.90); Total Protein 6.2 g/dL (6.4-8.2)
[2023-06-03] MEDS: PANTOPRAZOLE 40 MG/10 ML VIAL INJ IV SCH (09:55)
[2023-06-03] MEDS: FOLIC ACID 1 MG TAB PO SCH (09:55)
[2023-06-03] MEDS: predniSONE 5 MG TAB PO SCH (09:55)
[2023-06-03] MEDS: CLOPIDOGREL BISULFATE 75 MG TAB PO SCH (09:55)
[2023-06-03] MEDS: CARVEDILOL 12.5 MG TAB PO SCH ×2 (09:56→22:14)
[2023-06-03] MEDS: SACUBITRIL-VALSARTAN 24mg/26mg TAB PO SCH ×2 (09:56→22:14)
[2023-06-03] MEDS: MEGESTROL ACET 400MG/10ML ORAL SUSP PO SCH ×2 (09:57→22:15)
[2023-06-03] MEDS: SODIUM CHLOR 0.9% PF (SALINE LOCK) 10ML VIAL/SYR IV SCH ×2 (09:57→22:14)
[2023-06-03 10:37] LABS: Band Neutrophils % (manual) 2; Eosinophils % (manual) 4 (0-7); Lymphocytes % (manual) 7 (10.0-50.0); Monocytes % (manual) 5 (0-12); Platelet Estimate Adequate
[2023-06-03] MEDS ORDERED: FUROSEMIDE 40 MG/4 ML VIAL IV ONE (13:30)
[2023-06-03] MEDS ORDERED: TPN PER PHARMACY IV NR ×11 (20:00)
[2023-06-03] MEDS: ATORVASTATIN 20 MG TAB PO SCH (22:13)
[2023-06-04] VITALS (7 sets, daily range): BP systolic 109–152; BP diastolic 58–81; PULSE 77–90; RESP 15–21; TEMP 97.6–98.2; O2SAT 94–100
[2023-06-04] MEDS: ACCU-CHEK COMFORT CURVE STRIP VI SCH ×4 (00:22→18:07)
[2023-06-04] MEDS: InsuLIN REG 1unit/0.01ml Soln (100units/ml) SC SCH ×4 (00:29→18:09)
[2023-06-04] MEDS: HEPARIN SODIUM (PORCINE) 5000 UNITS/ML 1ML VIAL SC SCH ×3 (06:20→22:24)
[2023-06-04] MEDS: EMPAGLIFLOZIN 10 MG TAB PO SCH (06:24)
[2023-06-04 08:09] LABS: Albumin 2.2 g/dL (3.4-5.0); BUN/Creatinine Ratio 38.9 (10.0-20.0); Calcium 8.5 mg/dL (8.5-10.1); Magnesium 2.4 mg/dL (1.6-2.6); Phosphorus 3.4 mg/dL (2.5-4.90)
[2023-06-04] MEDS: DOCUSATE SOD 100 MG CAP PO SCH ×2 (10:00→22:00)
[2023-06-04] MEDS: CLOPIDOGREL BISULFATE 75 MG TAB PO SCH (10:27)
[2023-06-04] MEDS: FOLIC ACID 1 MG TAB PO SCH (10:27)
[2023-06-04] MEDS: predniSONE 5 MG TAB PO SCH (10:27)
[2023-06-04] MEDS: PANTOPRAZOLE 40 MG/10 ML VIAL INJ IV SCH (10:27)
[2023-06-04] MEDS: SODIUM CHLOR 0.9% PF (SALINE LOCK) 10ML VIAL/SYR IV SCH ×2 (10:27→22:22)
[2023-06-04] MEDS: SACUBITRIL-VALSARTAN 24mg/26mg TAB PO SCH ×2 (10:27→22:23)
[2023-06-04] MEDS: CARVEDILOL 12.5 MG TAB PO SCH ×2 (10:28→22:23)
[2023-06-04] MEDS: MEGESTROL ACET 400MG/10ML ORAL SUSP PO SCH ×2 (10:32→22:00)
[2023-06-04 15:13] LABS: Base Excess -2.7 mmol/L (-2.0-2.0)
[2023-06-04] MEDS ORDERED: TPN PER PHARMACY IV NR ×10 (20:00)
[2023-06-04] MEDS: ATORVASTATIN 20 MG TAB PO SCH (22:23)
[2023-06-05] VITALS (7 sets, daily range): BP systolic 124–146; BP diastolic 60–76; PULSE 82–98; RESP 15–22; TEMP 97.5–98.8; O2SAT 94–100
[2023-06-05] MEDS: ACCU-CHEK COMFORT CURVE STRIP VI SCH ×4 (05:51→17:10)
[2023-06-05] MEDS: HEPARIN SODIUM (PORCINE) 5000 UNITS/ML 1ML VIAL SC SCH ×2 (06:00→14:00)
[2023-06-05] MEDS: InsuLIN REG 1unit/0.01ml Soln (100units/ml) SC SCH ×4 (06:00→17:17)
[2023-06-05] MEDS: EMPAGLIFLOZIN 10 MG TAB PO SCH (06:28)
[2023-06-05 07:07] LABS: Basophils # (auto) 0 10 ^3/uL (0-0.2); Basophils % (auto) 0.4 % (0.0-2.0); Eosinophils # (auto) 0.2 10 ^3/uL (0-0.8); Eosinophils % (auto) 1.8 % (0.0-7.0); Hematocrit 30.3 % (41.0-53.0); Hemoglobin 9.9 g/dL (13.5-17.5); Lymphocytes # (auto) 0.9 10 ^3/uL (0.4-5.4); Mean Corpuscular Hemoglobin 30.2 pg (28.0-32.0); Mean Corpuscular Hgb Conc. 32.6 g/dL (32.0-36.0); Mean Corpuscular Volume 92.7 fL (80.0-100.0); Monocytes # (auto) 0.8 10 ^3/uL (0-1.3); Monocytes % (auto) 7.1 % (0.0-12.0); Neutrophils # (auto) 9.2 10 ^3/uL (1.6-8.6); Neutrophils % (auto) 82.7 % (37.0-80.0); Red Blood Cells 3.27 10^6/uL (4.5-5.90); Red Cell Distribution Width 15.2 % (11.8-14.3); White Blood Cell 11.1 10^3/uL (4.4-10.8)
[2023-06-05 07:19] LABS: Calcium 8.5 mg/dL (8.5-10.1); Magnesium 2.2 mg/dL (1.6-2.6); Potassium 4.3 mmol/L (3.5-5.1)
[2023-06-05 07:25] LABS: Albumin 2.1 g/dL (3.4-5.0); BUN/Creatinine Ratio 37.5 (10.0-20.0); Bilirubin, Total 0.8 mg/dL (0.2-1.0); Phosphorus 3.5 mg/dL (2.5-4.90); Total Protein 6.1 g/dL (6.4-8.2)
[2023-06-05] MEDS: DOCUSATE SOD 100 MG CAP PO SCH (10:00)
[2023-06-05] MEDS: SODIUM CHLOR 0.9% PF (SALINE LOCK) 10ML VIAL/SYR IV SCH (10:31)
[2023-06-05] MEDS: PANTOPRAZOLE 40 MG/10 ML VIAL INJ IV SCH (10:31)
[2023-06-05] MEDS: predniSONE 5 MG TAB PO SCH (10:32)
[2023-06-05] MEDS: SACUBITRIL-VALSARTAN 24mg/26mg TAB PO SCH (10:32)
[2023-06-05] MEDS: FOLIC ACID 1 MG TAB PO SCH (10:32)
[2023-06-05] MEDS: CLOPIDOGREL BISULFATE 75 MG TAB PO SCH (10:32)
[2023-06-05] MEDS: CARVEDILOL 12.5 MG TAB PO SCH (10:34)
[2023-06-05] MEDS: MEGESTROL ACET 400MG/10ML ORAL SUSP PO SCH ×2 (12:17→22:00)
[2023-06-05] MEDS ORDERED: TPN PER PHARMACY IV NR ×11 (20:00)
[2023-06-06] VITALS (7 sets, daily range): BP systolic 115–146; BP diastolic 62–83; PULSE 79–88; RESP 15–20; TEMP 97.5–98.7; O2SAT 97–99
[2023-06-06] MEDS: ACCU-CHEK COMFORT CURVE STRIP VI SCH ×5 (00:18→23:34)
[2023-06-06] MEDS: ATORVASTATIN 20 MG TAB PO SCH ×2 (00:18→23:04)
[2023-06-06] MEDS: SODIUM CHLOR 0.9% PF (SALINE LOCK) 10ML VIAL/SYR IV SCH ×3 (00:18→23:18)
[2023-06-06] MEDS: DOCUSATE SOD 100 MG CAP PO SCH ×3 (00:19→22:00)
[2023-06-06] MEDS: SACUBITRIL-VALSARTAN 24mg/26mg TAB PO SCH ×3 (00:24→23:04)
[2023-06-06] MEDS: CARVEDILOL 12.5 MG TAB PO SCH ×3 (00:24→23:09)
[2023-06-06] MEDS: HEPARIN SODIUM (PORCINE) 5000 UNITS/ML 1ML VIAL SC SCH ×4 (00:37→23:06)
[2023-06-06] MEDS: InsuLIN REG 1unit/0.01ml Soln (100units/ml) SC SCH ×5 (05:38→23:32)
[2023-06-06] MEDS: EMPAGLIFLOZIN 10 MG TAB PO SCH (06:38)
[2023-06-06 06:44] LABS: Potassium 4.4 mmol/L (3.5-5.1)
[2023-06-06 06:53] LABS: Albumin 2.3 g/dL (3.4-5.0); BUN/Creatinine Ratio 34.5 (10.0-20.0); Bilirubin, Total 0.7 mg/dL (0.2-1.0); Calcium 8.4 mg/dL (8.5-10.1); Magnesium 2.6 mg/dL (1.6-2.6); Phosphorus 4.1 mg/dL (2.5-4.90); Total Protein 6.2 g/dL (6.4-8.2)
[2023-06-06] MEDS: CLOPIDOGREL BISULFATE 75 MG TAB PO SCH (10:13)
[2023-06-06] MEDS: predniSONE 5 MG TAB PO SCH (10:13)
[2023-06-06] MEDS: PANTOPRAZOLE 40 MG/10 ML VIAL INJ IV SCH (10:13)
[2023-06-06] MEDS: FOLIC ACID 1 MG TAB PO SCH (10:13)
[2023-06-06] MEDS: MEGESTROL ACET 400MG/10ML ORAL SUSP PO SCH ×2 (11:32→23:03)
[2023-06-06] MEDS ORDERED: TPN PER PHARMACY IV NR ×11 (20:00)
[2023-06-07] VITALS (8 sets, daily range): BP systolic 108–172; BP diastolic 51–81; PULSE 65–88; RESP 16–24; TEMP 97.8–98.7; O2SAT 92–100
[2023-06-07] MEDS: HEPARIN SODIUM (PORCINE) 5000 UNITS/ML 1ML VIAL SC SCH ×3 (05:42→22:20)
[2023-06-07] MEDS: InsuLIN REG 1unit/0.01ml Soln (100units/ml) SC SCH ×2 (05:47→13:16)
[2023-06-07] MEDS: ACCU-CHEK COMFORT CURVE STRIP VI SCH ×2 (05:48→13:15)
[2023-06-07] MEDS: EMPAGLIFLOZIN 10 MG TAB PO SCH (06:04)
[2023-06-07 06:35] LABS: Calcium 9.2 mg/dL (8.5-10.1); Magnesium 2.4 mg/dL (1.6-2.6); Potassium 4.5 mmol/L (3.5-5.1)
[2023-06-07 06:42] LABS: Albumin 2.6 g/dL (3.4-5.0); BUN/Creatinine Ratio 33.9 (10.0-20.0); Bilirubin, Total 0.9 mg/dL (0.2-1.0); Phosphorus 3.5 mg/dL (2.5-4.90); Total Protein 6.8 g/dL (6.4-8.2)
[2023-06-07] MEDS: DOCUSATE SOD 100 MG CAP PO SCH ×2 (10:00→22:00)
[2023-06-07] MEDS: CLOPIDOGREL BISULFATE 75 MG TAB PO SCH (10:11)
[2023-06-07] MEDS: predniSONE 5 MG TAB PO SCH (10:11)
[2023-06-07] MEDS: FOLIC ACID 1 MG TAB PO SCH (10:12)
[2023-06-07] MEDS: SACUBITRIL-VALSARTAN 24mg/26mg TAB PO SCH ×2 (10:12→22:19)
[2023-06-07] MEDS: CARVEDILOL 12.5 MG TAB PO SCH ×2 (10:13→22:19)
[2023-06-07] MEDS: MEGESTROL ACET 400MG/10ML ORAL SUSP PO SCH ×2 (10:17→22:18)
[2023-06-07] MEDS: SODIUM CHLOR 0.9% PF (SALINE LOCK) 10ML VIAL/SYR IV SCH ×2 (10:28→22:19)
[2023-06-07] MEDS ORDERED: TPN PER PHARMACY IV NR ×10 (20:00)
[2023-06-07] MEDS: ATORVASTATIN 20 MG TAB PO SCH (22:19)
[2023-06-08] VITALS (7 sets, daily range): BP systolic 98–157; BP diastolic 59–97; PULSE 67–85; RESP 15–20; TEMP 97.4–98.5; O2SAT 94–100
[2023-06-08] MEDS: EMPAGLIFLOZIN 10 MG TAB PO SCH (05:47)
[2023-06-08] MEDS: HEPARIN SODIUM (PORCINE) 5000 UNITS/ML 1ML VIAL SC SCH ×2 (05:47→14:48)
[2023-06-08 05:52] LABS: Basophils # (auto) 0 10 ^3/uL (0-0.2); Basophils % (auto) 0.2 % (0.0-2.0); Eosinophils # (auto) 0.2 10 ^3/uL (0-0.8); Eosinophils % (auto) 1.5 % (0.0-7.0); Hemoglobin 10.7 g/dL (13.5-17.5); Lymphocytes # (auto) 1.1 10 ^3/uL (0.4-5.4); Lymphocytes % (auto) 9.7 % (10.0-50.0); Mean Corpuscular Hemoglobin 30.3 pg (28.0-32.0); Mean Corpuscular Hgb Conc. 32.3 g/dL (32.0-36.0); Mean Corpuscular Volume 93.7 fL (80.0-100.0); Monocytes # (auto) 0.9 10 ^3/uL (0-1.3); Monocytes % (auto) 7.4 % (0.0-12.0); Neutrophils # (auto) 9.3 10 ^3/uL (1.6-8.6); Neutrophils % (auto) 81.2 % (37.0-80.0); Nucleated Red Blood Cells % 0.1 %; Red Blood Cells 3.52 10^6/uL (4.5-5.90); Red Cell Distribution Width 15.3 % (11.8-14.3); White Blood Cell 11.4 10^3/uL (4.4-10.8)
[2023-06-08 06:04] LABS: Potassium 4.6 mmol/L (3.5-5.1)
[2023-06-08 06:10] LABS: Albumin 2.6 g/dL (3.4-5.0); BUN/Creatinine Ratio 29.8 (10.0-20.0); Bilirubin, Total 0.8 mg/dL (0.2-1.0); Magnesium 2.5 mg/dL (1.6-2.6); Phosphorus 3.8 mg/dL (2.5-4.90); Total Protein 6.7 g/dL (6.4-8.2)
[2023-06-08] MEDS: SODIUM CHLOR 0.9% PF (SALINE LOCK) 10ML VIAL/SYR IV SCH (10:00)
[2023-06-08] MEDS: DOCUSATE ORAL LIQUID 100 MG/10 ML UD PO SCH (10:00)
[2023-06-08] MEDS: predniSONE 5 MG TAB PO SCH (10:27)
[2023-06-08] MEDS: CLOPIDOGREL BISULFATE 75 MG TAB PO SCH (10:27)
[2023-06-08] MEDS: FOLIC ACID 1 MG TAB PO SCH (10:27)
[2023-06-08] MEDS: SACUBITRIL-VALSARTAN 24mg/26mg TAB PO SCH (10:27)
[2023-06-08] MEDS: CARVEDILOL 12.5 MG TAB PO SCH (10:29)
[2023-06-08] MEDS: MEGESTROL ACET 400MG/10ML ORAL SUSP PO SCH (10:33)
[2023-06-09] VITALS (9 sets, daily range): BP systolic 113–158; BP diastolic 65–87; PULSE 64–89; RESP 16–20; TEMP 96.7–98.8; O2SAT 92–96
[2023-06-09] MEDS: ATORVASTATIN 20 MG TAB PO SCH ×2 (00:21→21:38)
[2023-06-09] MEDS: CARVEDILOL 12.5 MG TAB PO SCH ×3 (00:21→21:51)
[2023-06-09] MEDS: DOCUSATE ORAL LIQUID 100 MG/10 ML UD PO SCH ×3 (00:21→21:52)
[2023-06-09] MEDS: SACUBITRIL-VALSARTAN 24mg/26mg TAB PO SCH ×3 (00:21→21:51)
[2023-06-09] MEDS: SODIUM CHLOR 0.9% PF (SALINE LOCK) 10ML VIAL/SYR IV SCH ×3 (00:22→21:52)
[2023-06-09] MEDS: HEPARIN SODIUM (PORCINE) 5000 UNITS/ML 1ML VIAL SC SCH ×4 (00:23→21:45)
[2023-06-09] MEDS: MEGESTROL ACET 400MG/10ML ORAL SUSP PO SCH ×3 (00:24→21:44)
[2023-06-09] MEDS: EMPAGLIFLOZIN 10 MG TAB PO SCH (06:44)
[2023-06-09 08:30] LABS: Basophils # (auto) 0 10 ^3/uL (0-0.2); Basophils % (auto) 0.4 % (0.0-2.0); Eosinophils # (auto) 0.2 10 ^3/uL (0-0.8); Eosinophils % (auto) 1.5 % (0.0-7.0); Hemoglobin 11.4 g/dL (13.5-17.5); Lymphocytes % (auto) 9.6 % (10.0-50.0); Mean Corpuscular Hemoglobin 30.6 pg (28.0-32.0); Mean Corpuscular Hgb Conc. 32.6 g/dL (32.0-36.0); Mean Corpuscular Volume 93.7 fL (80.0-100.0); Monocytes # (auto) 0.7 10 ^3/uL (0-1.3); Monocytes % (auto) 7.2 % (0.0-12.0); Neutrophils # (auto) 8.2 10 ^3/uL (1.6-8.6); Neutrophils % (auto) 81.3 % (37.0-80.0); Red Blood Cells 3.74 10^6/uL (4.5-5.90); Red Cell Distribution Width 15.6 % (11.8-14.3); White Blood Cell 10.1 10^3/uL (4.4-10.8)
[2023-06-09 08:39] LABS: Potassium 4.9 mmol/L (3.5-5.1)
[2023-06-09 08:45] LABS: BUN/Creatinine Ratio 24.5 (10.0-20.0); Calcium 9.7 mg/dL (8.5-10.1); Total Protein 7.4 g/dL (6.4-8.2)
[2023-06-09] MEDS: FOLIC ACID 1 MG TAB PO SCH (10:51)
[2023-06-09] MEDS: CLOPIDOGREL BISULFATE 75 MG TAB PO SCH (10:51)
[2023-06-09] MEDS: predniSONE 5 MG TAB PO SCH (10:52)
[2023-06-09] MEDS ORDERED: SODIUM CHLORIDE 0.9% 1,000 ML IV ONE (11:15)
[2023-06-09] MEDS: SODIUM CHLORIDE 0.9% 1,000 ML IV SCH (11:30)
[2023-06-10] MEDS: SODIUM CHLORIDE 0.9% 1,000 ML IV SCH ×2 (00:50→14:10)
[2023-06-10 05:00] VITALS: BP 161/82; PULSE 82; RESP 18; TEMP 97.9; O2SAT 98
[2023-06-10] MEDS: EMPAGLIFLOZIN 10 MG TAB PO SCH (06:17)
[2023-06-10] MEDS: HEPARIN SODIUM (PORCINE) 5000 UNITS/ML 1ML VIAL SC SCH ×2 (06:17→15:42)
[2023-06-10 07:30] VITALS: PULSE 69; PULSE 79; RESP 18; O2SAT 97
[2023-06-10 08:41] VITALS: BP 145/78; PULSE 80; RESP 21; TEMP 98.2; O2SAT 91
[2023-06-10 09:42] LABS: Basophils # (auto) 0.1 10 ^3/uL (0-0.2); Basophils % (auto) 0.9 % (0.0-2.0); Eosinophils # (auto) 0.1 10 ^3/uL (0-0.8); Hematocrit 33.4 % (41.0-53.0); Hemoglobin 10.9 g/dL (13.5-17.5); Lymphocytes # (auto) 0.9 10 ^3/uL (0.4-5.4); Lymphocytes % (auto) 8.2 % (10.0-50.0); Mean Corpuscular Hemoglobin 30.5 pg (28.0-32.0); Mean Corpuscular Hgb Conc. 32.8 g/dL (32.0-36.0); Mean Corpuscular Volume 92.9 fL (80.0-100.0); Monocytes # (auto) 0.6 10 ^3/uL (0-1.3); Monocytes % (auto) 5.4 % (0.0-12.0); Neutrophils # (auto) 9.3 10 ^3/uL (1.6-8.6); Neutrophils % (auto) 84.5 % (37.0-80.0); Red Blood Cells 3.59 10^6/uL (4.5-5.90); Red Cell Distribution Width 15.5 % (11.8-14.3)
[2023-06-10 09:55] LABS: Albumin 2.9 g/dL (3.4-5.0); Calcium 8.9 mg/dL (8.5-10.1); Potassium 4.3 mmol/L (3.5-5.1)
[2023-06-10 09:59] LABS: BUN/Creatinine Ratio 21.3 (10.0-20.0); Bilirubin, Total 0.9 mg/dL (0.2-1.0); Total Protein 7.2 g/dL (6.4-8.2)
[2023-06-10] MEDS: DOCUSATE ORAL LIQUID 100 MG/10 ML UD PO SCH (11:06)
[2023-06-10] MEDS: SODIUM CHLOR 0.9% PF (SALINE LOCK) 10ML VIAL/SYR IV SCH (11:06)
[2023-06-10] MEDS: MEGESTROL ACET 400MG/10ML ORAL SUSP PO SCH (11:10)
[2023-06-10] MEDS: CLOPIDOGREL BISULFATE 75 MG TAB PO SCH (11:16)
[2023-06-10] MEDS: SACUBITRIL-VALSARTAN 24mg/26mg TAB PO SCH (11:16)
[2023-06-10] MEDS: FOLIC ACID 1 MG TAB PO SCH (11:16)
[2023-06-10] MEDS: predniSONE 5 MG TAB PO SCH (11:16)
[2023-06-10] MEDS: CARVEDILOL 12.5 MG TAB PO SCH (11:17)
[2023-06-10] MEDS ORDERED: MEGE20TA3 PO (12:04)
[2023-06-10] MEDS ORDERED: CLOP75TA70 PO (12:06)
[2023-06-10] MEDS ORDERED: CAR125T PO (12:12)
[2023-06-10] MEDS ORDERED: EMPA1TAB PO (12:12)
[2023-06-10] MEDS ORDERED: SACU1TAB PO ×3 (12:12→17:12)
[2023-06-10] MEDS ORDERED: ATOR20TA50 PO (12:12)
[2023-06-10] MEDS ORDERED: APIX5TAB PO ×3 (12:12→17:12)
[2023-06-10 12:19] VITALS: BP 144/72; PULSE 75; RESP 18; TEMP 98.5; O2SAT 100
[2023-06-10 13:36] VITALS: BP 145/78; PULSE 80; TEMP 98
[2023-06-10 16:02] VITALS: BP 115/70; PULSE 75; RESP 20; TEMP 98.9; O2SAT 99
== END 2023-06-10 15:30 | disposition home health service (06) | DRG 871 ==
LOC: EDBD 10:18 → ER 10:18 → TELE 12:41 → TELE-EAST 05-18 18:08 → EAST 05-26 22:34 → TELE-EAST 05-27 02:39
PROVIDERS: ADMIT Nurse Practitioner; ATTEND Nurse Practitioner
PROC: 05HC33Z Insertion of Infusion Device into Left Basilic Vein, Percutaneous Approach (ICD-10-PCS; 2023-05-18)
PROC: B54NZZA Ultrasonography of Left Upper Extremity Veins, Guidance (ICD-10-PCS; 2023-05-18)
PROC: 4A10X4Z Monitoring of Central Nervous Electrical Activity, External Approach (ICD-10-PCS; 2023-05-19)
PROC: 02HV33Z Insertion of Infusion Device into Superior Vena Cava, Percutaneous Approach (ICD-10-PCS; principal; 2023-05-28)
PROC: B548ZZA Ultrasonography of Superior Vena Cava, Guidance (ICD-10-PCS; 2023-05-28)
DX: A41.50 Gram-negative sepsis, unspecified (principal); E43 Unspecified severe protein-calorie malnutrition; G93.41 Metabolic encephalopathy; I21.A1 Myocardial infarction type 2; I63.9 Cerebral infarction, unspecified; N17.0 Acute kidney failure with tubular necrosis; I50.23 Acute on chronic systolic (congestive) heart failure; I13.0 Hypertensive heart and chronic kidney disease with heart failure and stage 1 through stage 4 chronic kidney disease, or unspecified chronic kidney disease; I25.3 Aneurysm of heart; F10.239 Alcohol dependence with withdrawal, unspecified; I16.1 Hypertensive emergency; J98.11 Atelectasis; M00.9 Pyogenic arthritis, unspecified; E78.5 Hyperlipidemia, unspecified; E11.22 Type 2 diabetes mellitus with diabetic chronic kidney disease; E11.51 Type 2 diabetes mellitus with diabetic peripheral angiopathy without gangrene; F03.A0 Unspecified dementia, mild, without behavioral disturbance, psychotic disturbance, mood disturbance, and anxiety; M25.462 Effusion, left knee; I25.10 Atherosclerotic heart disease of native coronary artery without angina pectoris; E78.00 Pure hypercholesterolemia, unspecified; E11.65 Type 2 diabetes mellitus with hyperglycemia; G40.409 Other generalized epilepsy and epileptic syndromes, not intractable, without status epilepticus; N18.30 Chronic kidney disease, stage 3 unspecified; Z79.02 Long term (current) use of antithrombotics/antiplatelets; Z91.199 Patient's noncompliance with other medical treatment and regimen due to unspecified reason; Z95.1 Presence of aortocoronary bypass graft; Z68.26 Body mass index [BMI] 26.0-26.9, adult; Z95.5 Presence of coronary angioplasty implant and graft; Z87.820 Personal history of traumatic brain injury; Z79.899 Other long term (current) drug therapy
CPT/HCPCS: 36415; 36569; 36600; 70450; 70551; 71045; 73562; 73718; 73721; 76700; 76775; 80053; 80202; 80307; 80320; 81001; 82105; 82140; 82306; 82570; 82607; 82728; 82805; 82962; 83605; 83690; 83735; 83880; 83970; 84100; 84156; 84300; 84478; 84484; 85007; 85025; 85027; 85610; 85652; 85730; 86038; 86141; 86301; 86704; 86706; 86708; 86803; 87040; 87081; 87086; 87340; 92610; 93005; 93886; 93971; 95819; 96360; 97110; 97116; 97163; 97530; 99291; C9113; G0378; J0696; J1815; J3480; J7060; J7131; P9047

== ENCOUNTER 2024-10-13 21:02 | Emergency (ER) | payer BC, MEDICAID ==
[~2024-10-13] VITALS: Ht 180.3 cm; Wt 80.9 kg
[~2024-10-13 21:02] MED LIST changes: -AML5T PO; +APIX5TAB PO; -ASPI81CH43 PO; -CAR125T PO; +CARV-216 PO; -CLOP75TA28 PO; +CLOP75TA70 PO; +EMPA1TAB PO; -FURO1TAB31 PO; +MEGE20TA3 PO; -MULT-1018 PO; -MULT1TAB95 PO; -POTA-220 PO; +SACU1TAB PO
[2024-10-13 21:26] VITALS: BP 232/123; RESP 16; O2SAT 95
[2024-10-13] MEDS: HYDROcodone-ACET 5/325MG TAB PO ONE (21:49)
[2024-10-13] MEDS: cloNIDine HCL 0.1 MG TAB PO ONE (21:49)
[2024-10-13 21:52] VITALS: PULSE 97
[2024-10-13 22:04] LABS: Basophils # (auto) 0 10 ^3/uL (0-0.2); Basophils % (auto) 0.6 % (0.0-2.0); Eosinophils # (auto) 0.2 10 ^3/uL (0-0.8); Hematocrit 45.4 % (41.0-53.0); Hemoglobin 15.3 g/dL (13.5-17.5); Lymphocytes # (auto) 1.6 10 ^3/uL (0.4-5.4); Lymphocytes % (auto) 20.3 % (10.0-50.0); Mean Corpuscular Hemoglobin 30.6 pg (28.0-32.0); Mean Corpuscular Hgb Conc. 33.7 g/dL (32.0-36.0); Mean Corpuscular Volume 90.9 fL (80.0-100.0); Monocytes # (auto) 0.7 10 ^3/uL (0-1.3); Monocytes % (auto) 8.4 % (0.0-12.0); Neutrophils # (auto) 5.3 10 ^3/uL (1.6-8.6); Neutrophils % (auto) 67.7 % (37.0-80.0); Nucleated Red Blood Cells % 0.1 %; Platelet Count (auto) 181 10^3/uL (140-450); Red Cell Distribution Width 15.1 % (11.8-14.3); White Blood Cell 7.8 10^3/uL (4.4-10.8)
[2024-10-13 22:20] LABS: Alanine Aminotransferase 10 U/L (7-40); Albumin 4.7 g/dL (3.2-4.8); Alkaline Phosphatase 86 U/L (46-116); Anion Gap 7 (5-15); Aspartate Aminotransferase 20 U/L (13-40); BUN/Creatinine Ratio 9.1 (10.0-20.0); Bilirubin, Total 0.9 mg/dL (0.2-1.0); Blood Urea Nitrogen 17 mg/dL (9-23); Carbon Dioxide 27 mmol/L (20-31); Chloride 107 mmol/L (98-107); Potassium 3.7 mmol/L (3.5-5.1); Sodium 141 mmol/L (136-145); Total Protein 7.6 g/dL (5.7-8.2)
[2024-10-13 22:24] LABS: Glucose 127 mg/dL (74-106)
[2024-10-13] MEDS: IOHEXOL 350 MG/ML 100ML IJ ONE (23:33)
--- NOTE | 2024-10-13 23:33 | ED.PDOC ---
HPI (NEURO) HPI Comments 69-year-old male with past medical history pertinent for HTN, CAD, CKD AF, CVA, DM, hyperlipidemia, presents to ED for headache x5 days, associated with nausea, bilateral arm tingling. Patient also states that he has had blurry vision for the past two months. He currently rates his pain as 9/10 in severity. He denies any fevers, chest pain, shortness of breath, vomiting, weakness, dizziness. Patient reports that he takes his blood pressure medications regularly. No alleviating or aggravating factors. Chief Complaint: Headache Time Seen by MD: 21:09 Primary Care Provider: UNKNOWN Reviewed Notes: Nurses Notes, Medications, Allergies Mode of Arrival: Ambulatory Past Medical History PAST MEDICAL HISTORY: CAD, CKF, CVA, DM, High Lipids, HTN, Seizures Surgical History: CABG Family History Family History: Reviewed,noncontributory to illness Social History Smoker: Non-Smoker Alcohol: Heavy Drugs: Denies Drug Use Lives In: Home Constitutional: denies: chills, diaphoresis, fatigue, fever, malaise, sweats, weakness, others EENTM: reports: blurred vision; denies: double vision, ear bleeding, ear discha rge, ear drainage, ear pain, ear ringing, eye pain, eye redness, hearing loss, mouth pain, mouth swelling, nasal discharge, nose bleeding, nose congestion, nose pain, photophobia, tearing, throat pain, throat swelling, voice changes, others Respiratory: denies: cough, hemoptysis, orthopnea, SOB at rest, shortness of breath, SOB with excertion, stridor, wheezing, others Cardiovascular: denies: chest pain, dizzy spells, diaphoresis, Dyspnea on exertion, edema, irregular heart beat, left arm pain, lightheadedness, palpitations, PND, syncope, others Gastrointestinal: reports: nausea; denies: abdomen distended, abdominal pain, blood streaked bowels, constipated, diarrhea, dysphagia, difficulty swallowing, hematemesis, melena, poor appetite, poor fluid intake, rectal bleeding, rectal pain, vomiting, others Genitourinary: denies: burning, dysuria, flank pain, frequency, hematuria, incontinence, penile discharge, penile sore, pain, testicle pain, testicle swelling, urgency, others Neurological: reports: headache, numbness; denies: dizziness, fainting, left sided numbness, left sided weakness, paresthesia, pre-existing deficit, right sided numbness, right sided weakness, seizure, speech problems, tingling, tremors, weakness, others Musculoskeletal: denies: back pain, gout, joint pain, joint swelling, muscle pain, muscle stiffness, neck pain, others Integumetry: denies: bruises, change in color, change in hair/nails, dryness, laceration, lesions, lumps, rash, wounds, others Allergic/Immunocompromised: denies: Difficulty Healing, Frequent Infections, Hives, Itching, others Hematologic/Lymphatic: denies: anemia, blood clots, easy bleeding, easy bruising, swollen glands, others Endocrine: denies: excessive hunger, excessive sweating, excessive thirst, excessive urination, flushing, intolerance to cold, intolerance to heat, unexplained weight gain, unexplained weight loss, others Psychiatric: denies: anxiety, bipolar disorder, depression, hopeless, panic disorder, schizophrenia, sleepless, suicidal, others All Other Systems: Reviewed and Negative Physical Exam General Appearance: No Apparent Distress, Normal HEENT: Normal ENT Inspection, Pharynx Normal, TMs Normal Neck: Full Range of Motion, Non-Tender, Normal, Normal Inspection Respiratory: Chest Non-Tender, Lungs Clear, No Accessory Muscle Use, No Respiratory Distress, Normal Breath Sounds Cardiovascular: No Edema, No JVD, No Murmur, No Gallop, Normal Peripheral Pulses, Regular Rate/Rhythm Breast Exam: Deferred Gastrointestinal: No Organomegaly, Non Tender, No Pulsatile Mass, Normal Bowel Sounds, Soft Genitalia: Deferred Pelvic: Deferred Rectal: Deferred Extremities: No calf tenderness, Normal capillary refill, Normal inspection, Normal range of motion, Non-tender, No pedal edema Musculoskeletal : Apperance: Normal Neurologic: Alert, line lead II-XII nml as Tested, No Motor Deficits, Normal Affect, Normal Mood, No Sensory Deficits, Other (Normal bilateral adjunct psychology professor strength. 5/5 strength in bilateral upper and lower extremities. Negative facial droop. Negative pronator drift.) Cerebellar Function: Normal Reflexes: Normal Skin: Dry, Normal Color, Warm Lymphatic: No Adenopathy Was a procedure done? Was a procedure done?: No Differential Diagnosis (SZ) Headache: Cluster, Migraine, CVA, Epidural Hemorrhage, Intracerebral H emorrhage, Subarachnoid Hemorrhage, Subdural Hemorrhage, Mass Lesion X-Ray, Labs, Meds, VS Vital Signs Date Time Temp Pulse Resp B/P (MAP) Pulse Ox O2 Delivery O2 Flow Rate FiO2 10/13/24 23:37 184/85 10/13/24 21:52 97 10/13/24 21:49 192/114 10/13/24 21:26 97.1 90 16 232/123 (159) 95 Lab Test 10/13/24 21:36 Range/Units White Blood Count 7.8 4.4-10.8 10^3/uL Red Blood Count 5.00 4.5-5.90 10^6/uL Hemoglobin 15.3 13.5-17.5 g/dL Hematocrit 45.4 41.0-53.0 % Mean Corpuscular Volume 90.9 80.0-100.0 fL Mean Corpuscular Hemoglobin 30.6 28.0-32.0 pg Mean Corpuscular Hemoglobin Concent 33.7 32.0-36.0 g/dL Red Cell Distribution Width 15.1 H 11.8-14.3 % Platelet Count 181 140-450 10^3/uL Mean Platelet Volume 8.5 6.9-10.8 fL Neutrophils (%) (Auto) 67.7 37.0-80.0 % Lymphocytes (%) (Auto) 20.3 10.0-50.0 % Monocytes (%) (Auto) 8.4 0.0-12.0 % Eosinophils (%) (Auto) 3.0 0.0-7.0 % Basophils (%) (Auto) 0.6 0.0-2.0 % Neutrophils # (Auto) 5.3 1.6-8.6 10 ^3/uL Lymphocytes # (Auto) 1.6 0.4-5.4 10 ^3/uL Monocytes # (Auto) 0.7 0-1.3 10 ^3/uL Eosinophils # (Auto) 0.2 0-0.8 10 ^3/uL Basophils # (Auto) 0 0-0.2 10 ^3/uL Nucleated Red Blood Cells 0.1 % Sodium Level 141 136-145 mmol/L Potassium Level 3.7 3.5-5.1 mmol/L Chloride Level 107 98-107 mmol/L Carbon Dioxide Level 27 20-31 mmol/L Anion Gap 7 5-15 Blood Urea Nitrogen 17 9-23 mg/dL Creatinine 1.87 H 0.700-1.30 mg/dL Glomerular Filtration Rate Calc 39 >90 mL/min BUN/Creatinine Ratio 9.1 L 10.0-20.0 Serum Glucose 127 H 74-106 mg/dL Calcium Level 10.0 8.7-10.4 mg/dL Total Bilirubin 0.9 0.2-1.0 mg/dL Aspartate Amino Transferase (AST) 20 13-40 U/L Alanine Aminotransferase (ALT) 10 7-40 U/L Alkaline Phosphatase 86 46-116 U/L Troponin I High Sensitivity 92 *H </=54 ng/L Total Protein 7.6 5.7-8.2 g/dL Albumin 4.7 3.2-4.8 g/dL Current Medications Medications (Trade) Dose Ordered Sig/Domo Route Start Time Stop Time Status Last Admin Clonidine HCl (Catapres Tablet) 0.2 mg ONCE ONCE PO 10/13/24 21:30 10/13/24 21:31 DC 10/13/24 21:49 Acetaminophen/ Hydrocodone Bitart (Bannister 5/325MG Tab) 1 tab ONCE ONCE PO 10/13/24 21:30 10/13/24 21:31 DC 10/13/24 21:49 X-Ray, Labs, Meds, VS Comment CT Angio Head/Neck FINDINGS: Head: The brainshows normal morphology and preciado-white matter differentiation, without intracranial hemorrhage, mass effect, extra-axial fluid collection, or abnormal contrast enhancement. The ventricles are normal in size. The skull and visible facial bones are intact. The paranasal sinuses, mastoid air cells, and middle ear cavities are normally aerated. The soft tissues of the scalp and face are unremarkable. Status right-sided craniotomy. On the CT angiographic images, the internal carotid arteries are normal in caliber from the skull base to their bifurcations. The anterior and middle cerebral arteries and their branches appear normal. The anterior communicating artery appears normal. The bilateral posterior communicating arteries are normal. The vertebral arteries are codominant. The vertebral, basilar, superior cerebellar, and posterior cerebral arteries are normal in caliber. No aneurysm, arteriovenous malformation, or stenosis is visible. Neck: The common carotid, internal carotid, external carotid, and vertebral arteries are normal in caliber. The vertebral arteries are codominant. The visualized intracranial arteries are normal. There is no evidence of contrast extravasation, filling defects, stenosis, or dissection. The pharynx and airway are normal. The thyroid, submandibular, and parotid glands appear normal. No lymphadenopathy is seen. The visualized intracranial structures are unremarkable. IMPRESSION: No acute intracranial abnormalities. No hemodynamically significant abnormalities involving the head/neck. MDM: Patient with history as above presented with headache. History obtained from patient. Patient was nontoxic, stable, afebrile, ambulatory, no acute distress. Exam as above. Labs reviewed. CBC did not show leukocytosis. No anemia noted. CMP did not show significant electrolyte abnormalities. Creatinine was elevated at 1.87. Normal BUN. Independently reviewed imaging. CT angio head/neck did not show any acute findings. EKG was reviewed by me. Normal sinus rhythm at 97 beats per minute, PVCs noted, possible left ventricular hypertrophy, no ST elevations, no ST depressions. Reviewed external records. All findings were discussed with the patient. Differential diagnosis considered. Overall presentation is consistent with hypertensive emergency and TR. Low suspicion for acute CVA, intracranial bleed, subarachnoid hemorrhage. Patient was treated with Bannister and clonidine with mild improvement in symptoms. Patient's initial systolic in the 230s and diastolic 120s. There was slight improvement with clonidine. Patient continues to have headache with Bannister. Attempted to admit the patient to the hospital for hypertensive emergency and TR, however patient refused to stay in the hospital. He states that he does not want to be admitted at this time. This patient has elected to leave against medical advice. In my opinion, the patient has capacity to leave AMA. The patient is clinically sober, free from distracting injury, appears to have intact insight, judgment, and reason; therefore, the patient has the capacity to make decisions. I explained to the patient that these symptoms may represent a serious underlying medical condition and the patient verbalized understanding of my concerns and understands the consequences of leaving without complete evaluation. I had a discussion with the patient about their workup and results, and informed the patient what the next step in diagnosis and treatment would be, and they verbalized understanding of this as well. I explained the risks of leaving without further workup or treatment, which included reasonably foreseeable complications such as , serious injury, prolonged illness, and permanent disability. I discussed the specific benefits of additional treatment and also offered alternatives to departing AMA, such as assigning the patient a different provider or an alternate workup pathway. However, the patient declined and insisted on leaving against medical advice. I answered all of the patient's questions about their condition and I asked them to follow up with their PCP as soon as possible or return to this ER for further evaluation whenever they choose. Patient voiced understanding. Addendum at 2155: Patient's daughter was concerned because the patient was initially brought in due to left-sided facial numbness as well as left arm numbness. Patient did not mention any of these symptoms during my initial history and exam. Patient likely had a TIA. I continued to advised the patient and daughter to remain in the hospital for further evaluation, however patient continued to refuse. Patient is alert and oriented x4, therefore he has capacity to make decisions. After patient had left against medical advice, his initial troponin returned at 92. I did give the patient and his daughter a call regarding this result and also reviewed his previous results, which showed consistent elevated troponins. Daughter does state that the patient has stents. I did educate the daughter that this may be chronic, however it is uncertain whether patient is having an ACS. Daughter states that she will try to convince the patient to come back to the ER for possible admission. At this time, the p atyan has still decided to leave against medical advice. Disposition: AMA This medical document was created using the [employer] dictation system. Although this document has been carefully reviewed, there may still be some phonetic and typographical errors, which are due to imperfections of the software program, and do not reflect any compromise in the patient's medical care. Time of 1ST Reevaluation: 00:14 Reevaluation 1ST: Improved Patient Education/Counseling: Diagnosis, Treatment, Prognosis, Need For Follow Up Family Education/Counseling: No Family Present Departure 1 Departure Time of Disposition: 00:14 Impression: Primary Impression: Hypertensive emergency Additional Impression: TR (acute kidney injury) Disposition: 09 ADMITTED INPATIENT Condition: Fair Critical Care Note Critical Care Time?: No Stability Stability form required: No Heart Score Heart Score: Heart Score Response (Comments) Value History N/A 0 EKG N/A 0 Age N/A 0 Risk Factors N/A 0 Troponin N/A 0 Total 0 LYLA [facility]OM[facility]OR [facility] Oct 13, 2024 23:32
--- NOTE | 2024-10-14 00:05 | DVH ---
CT ANGIO HEAD/Neck INDICATION: R/o intracranial bleed, headache EXAM DATE: 10/13/2024 11:05 PM COMPARISON: None RADIATION DOSE: CTDIvol: 29.68 mGy, DLP: 1317.81 mGy*cm PROCEDURE: CT angiogram images were obtained of the head and neck. Coronal and sagittal reformatted i mages were created as well as 3D and/or MIP reconstructions. All CT scans at this medical facility are performed using dose modulation techniques as appropriate t o a performed exam including the following: Automated exposure control was utilized; adjustment of th e MA and/or KV according to patient size; and use of iterative reconstruction technique. FINDINGS: Head: The brainshows normal morphology and preciado-white matter differentiation, without intracranial hemorrha ge, mass effect, extra-axial fluid collection, or abnormal contrast enhancement. The ventricles are n ormal in size. The skull and visible facial bones are intact. The paranasal sinuses, mastoid air cell s, and middle ear cavities are normally aerated. The soft tissues of the scalp and face are unremarka ble. Status right-sided craniotomy. On the CT angiographic images, the internal carotid arteries are normal in caliber from the skull bas e to their bifurcations. The anterior and middle cerebral arteries and their branches appear normal. The anterior communicating artery appears normal. The bilateral posterior communicating arteries are normal. The vertebral arteries are codominant. The vertebral, basilar, superior cerebellar, and poste rior cerebral arteries are normal in caliber. No aneurysm, arteriovenous malformation, or stenosis is visible. Neck: The common carotid, internal carotid, external carotid, and vertebral arteries are normal in caliber. The vertebral arteries are codominant. The visualized intracranial arteries are normal. There is no evidence of contrast extravasation, filling defects, stenosis, or dissection. The pharynx and airway are normal. The thyroid, submandibular, and parotid glands appear normal. No l ymphadenopathy is seen. The visualized intracranial structures are unremarkable. IMPRESSION: No acute intracranial abnormalities. No hemodynamically significant abnormalities involving the head/ neck.
--- NOTE | 2024-10-14 02:38 | ECG ---
[facility] Test Date: 2024-10-13 Test Time: 21:52:03 Pat Name: YOGESH HOPE Department: ED Room: Gender: M [employer] Executive: CATHLEEN : 1955 Requested By: LYLA SOTOMAYOR Order Number: [id number] Reading MD: Measurements Intervals [place] Rate: 97 P: 73 KS: 180 QRS: 72 QRSD: 114 T: 119 QT: 386 QTc: 491 Interpretive Statements Sinus rhythm Ventricular premature complex Probable left atrial enlargement Incomplete right bundle branch block Consider left ventricular hypertrophy Abnrm T, consider ischemia, anterolateral lds Please click the below link to view image of tracing.
== END 2024-10-14 00:33 | disposition left against medical advice (07) ==
LOC: ER 21:02
DX: I16.1 Hypertensive emergency (principal); I12.9 Hypertensive chronic kidney disease with stage 1 through stage 4 chronic kidney disease, or unspecified chronic kidney disease; E11.22 Type 2 diabetes mellitus with diabetic chronic kidney disease; N18.9 Chronic kidney disease, unspecified; E78.5 Hyperlipidemia, unspecified; Z86.73 Personal history of transient ischemic attack (TIA), and cerebral infarction without residual deficits; Z95.1 Presence of aortocoronary bypass graft; Z98.890 Other specified postprocedural states
CPT/HCPCS: 36415; 70496; 80053; 84484; 85025; 93005; 99285; Q9967

== ENCOUNTER 2025-01-19 01:34 | Inpatient (IN) | payer BC, MEDICAID ==
[~2025-01-19] VITALS: Ht 172.7 cm; Wt 76.4 kg
[2025-01-19] VITALS (9 sets, daily range): BP systolic 139–170; BP diastolic 59–89; PULSE 72–93; RESP 17–20; TEMP 97.5–98.3; O2SAT 88–100
[2025-01-19 02:03] LABS: Basophils # (auto) 0 10 ^3/uL (0-0.2); Basophils % (auto) 0.4 % (0.0-2.0); Eosinophils # (auto) 0.1 10 ^3/uL (0-0.8); Eosinophils % (auto) 1.7 % (0.0-7.0); Hematocrit 35.2 % (41.0-53.0); Hemoglobin 12.1 g/dL (13.5-17.5); Lymphocytes # (auto) 0.7 10 ^3/uL (0.4-5.4); Lymphocytes % (auto) 10.6 % (10.0-50.0); Mean Corpuscular Hemoglobin 31.1 pg (28.0-32.0); Mean Corpuscular Hgb Conc. 34.5 g/dL (32.0-36.0); Mean Corpuscular Volume 90.2 fL (80.0-100.0); Monocytes # (auto) 0.5 10 ^3/uL (0-1.3); Monocytes % (auto) 7.6 % (0.0-12.0); Neutrophils # (auto) 5.4 10 ^3/uL (1.6-8.6); Neutrophils % (auto) 79.7 % (37.0-80.0); Platelet Count (auto) 164 10^3/uL (140-450); Red Cell Distribution Width 15.1 % (11.8-14.3); White Blood Cell 6.8 10^3/uL (4.4-10.8)
--- NOTE | 2025-01-19 02:11 | ED.PDOC ---
HPI Comments 69-year-old male who came to ER for chest pains. Patient has extensive cardiac history, hypertension, diabetes, dyslipidemia, coronary artery disease, chronic kidney failure, CHF, MO. Has been complaining of substernal chest pains/epigastric pain radiating to the back since yesterday. Noted diaphoresis or shortness of breath. Patient states pain is similar to when he had an MO before. Chief Complaint: Chest Pain Time Seen by MD: 02:10 Primary Care Provider: UNKNOWN Reviewed Notes: Nurses Notes Allergies: Coded Allergies: No Known Drug Allergy (Verified Allergy, Unknown, 01/19/25) Home Meds Active Scripts Sacubitril-Valsartan (Entresto 24-26 mg) 1 Tab Tab, 1 TAB PO DAILY for 30 Days, #30 TAB Prov:CHARLES MONTES [facility] 06/10/23 Apixaban Base (ELIQUIS) 5 Mg Tab, 5 MG PO BID for 30 Days, #60 TAB Prov:CHARLES MONTESP 06/10/23 Empagliflozin (Jardiance) 10 Mg Tab, 10 MG PO QAM for 30 Days, #30 TAB Prov:CHARLES MONTES [facility] 06/10/23 Atorvastatin Calcium (ATORVASTATIN CALCIUM) 20 Mg Tab, 20 MG PO HS for 30 Days, #30 TAB Prov:CHARLES MONTES [facility] 06/10/23 Carvedilol (COREG) 12.5 Mg Tab, 25 MG PO Q12HR for 30 Days, #120 TAB Prov:CHARLES MONTES [facility] 06/10/23 Clopidogrel Bisulfate (CLOPIDOGREL) 75 Mg Tab, 75 MG PO DAILY for 30 Days, #30 TAB Prov:CHARLES MONTES [facility] 06/10/23 Megestrol Acetate (Megace) 20 Mg Tb, 20 MG PO BID for 30 Days, #60 TAB Prov:CHARLES MONTESP 06/10/23 Chlordiazepoxide Hcl (Librium) 25 Mg Cp, 25 MG PO TID PRN, #30 CAP Prov:PATRICE SAN MD 05/16/23 Folic Acid (Folic Acid) 1 Mg Tab, 1 MG PO DAILY, #30 TAB Prov:PATRICE SAN MD 05/16/23 Thiamine HCl (Thiamine Hydrochloride) 100 Mg Tab, 100 MG PO DAILY, #30 TAB Prov:PATRICE SAN MD 05/16/23 Information Source: Patient Mode of Arrival: Ambulatory Severity: Moderate Timing: Days Duration: Intermittent Prehospital treatment: None Location: Substernal Radiation: Back Quality: Pressure Onset: At Rest, With Light Exertion Cardiac Risk Factors: Hyperlipidemia, HTN, Diabetes History of: Similar pain in past, MO Associated Signs and Symptoms: SOB, Diaphoresis, Back Pain Past Medical History PAST MEDICAL HISTORY: CAD, CHF, CKF, CVA, DM, High Lipids, HTN, MO, Seizures Surgical History: Denies all surgeries Family History Family History: Reviewed,noncontributory to illness Social History Smoker: Non-Smoker Alcohol: Occasionally Drugs: Denies Drug Use Lives In: Home Constitutional: denies: chills, diaphoresis, fatigue, fever, malaise, sweats, weakness, others Respiratory: reports: shortness of breath, SOB with excertion; denies: cough, hemoptysis, orthopnea, SOB at rest, stridor, wheezing, others Cardiovascular: reports: chest pain; denies: dizzy spells, diaphoresis, Dyspnea on exertion, edema, irregular heart beat, left arm pain, lightheadedness, palpitations, PND, syncope, others Gastrointestinal: reports: abdominal pain; denies: abdomen distended, blood streaked bowels, constipated, diarrhea, dysphagia, difficulty swallowing, hematemesis, melena, nausea, poor appetite, poor fluid intake, rectal bleeding, rectal pain, vomiting, others Genitourinary: denies: burning, dysuria, flank pain, frequency, hematuria, incontinence, penile discharge, penile sore, pain, testicle pain, testicle swelling, urgency, others Neurological: denies: dizziness, fainting, headache, left sided numbness, left sided weakness, numbness, paresthesia, pre-existing deficit, right sided numbness, right sided weakness, seizure, speech problems, tingling, tremors, weakness, others Musculoskeletal: reports: back pain; denies: gout, joint pain, joint swelling, muscle pain, muscle stiffness, neck pain, others Integumetry: denies: bruises, change in color, change in hair/nails, dryness, laceration, lesions, lumps, rash, wounds, others Allergic/Immunocompromised: denies: Difficulty Healing, Frequent Infections, Hives, Itching, others Hematologic/Lymphatic: denies: anemia, blood clots, easy bleeding, easy bruising, swollen glands, others Endocrine: denies: excessive hunger, excessive sweating, excessive thirst, excessive urination, flushing, intolerance to cold, intolerance to heat, unexplained weight gain, unexplained weight loss, others Psychiatric: denies: anxiety, bipolar disorder, depression, hopeless, panic disorder, schizophrenia, sleepless, suicidal, others Physical Exam General Appearance: No Apparent Distress, Normal HEENT: Normal ENT Inspection, Pharynx Normal, TMs Normal Neck: Full Range of Motion, Non-Tender, Normal, Normal Inspection Respiratory: Chest Non-Tender, Lungs Clear, No Accessory Muscle Use, No Respiratory Distress, Normal Breath Sounds Cardiovascular: No Edema, No JVD, No Murmur, No Gallop, Normal Peripheral Pulses, Regular Rate/Rhythm Breast Exam: Deferred Gastrointestinal: No Organomegaly, Non Tender, No Pulsatile Mass, Normal Bowel Sounds, Soft Genitalia: Deferred Pelvic: Deferred Rectal: Deferred Extremities: No calf tenderness, Normal capillary refill, Normal inspection, Normal range of motion, Non-tender, No pedal edema Musculoskeletal : Apperance: Normal Neurologic: Alert, 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 Was a procedure done?: No CP Differential Dx Differential Diagnosis: Angina, Anxiety / Panic Attack, Hyperventilation Differential Diagnosis: CHF Differential Diagnosis: Angina, Chest Wall Pain, Cholelithiasis, Costochondritis, Esophageal reflux/spasm, Gastritis, Myocardial Infarction, Pneumonia X-Ray, Labs, Meds, VS Vital Signs Date Time Temp Pulse Resp B/P (MAP) Pulse Ox O2 Delivery O2 Flow Rate FiO2 01/19/25 04:00 94 01/19/25 04:00 98.6 93 20 168/88 (114) 100 98.6 01/19/25 03:51 92 175/85 (115) 01/19/25 03:30 211/110 01/19/25 03:12 90 18 204/97 (132) 97 01/19/25 03:04 90 24 204/97 01/19/25 02:45 70 01/19/25 02:34 84 20 189/110 01/19/25 02:11 93 01/19/25 02:02 97.7 89 16 196/102 (133) 92 97.7 01/19/25 01:57 98.0 80 22 186/87 (120) 95 98.0 01/19/25 01:40 93 Lab Test 01/19/25 02:40 01/19/25 01:42 Range/Units Troponin I High Sensitivity 44 49 </=54 ng/L White Blood Count 6.8 4.4-10.8 10^3/uL Red Blood Count 3.90 L 4.5-5.90 10^6/uL Hemoglobin 12.1 L 13.5-17.5 g/dL Hematocrit 35.2 L 41.0-53.0 % Mean Corpuscular Volume 90.2 80.0-100.0 fL Mean Corpuscular Hemoglobin 31.1 28.0-32.0 pg Mean Corpuscular Hemoglobin Concent 34.5 32.0-36.0 g/dL Red Cell Distribution Width 15.1 H 11.8-14.3 % Platelet Count 164 140-450 10^3/uL Mean Platelet Volume 8.9 6.9-10.8 fL Neutrophils (%) (Auto) 79.7 37.0-80.0 % Lymphocytes (%) (Auto) 10.6 10.0-50.0 % Monocytes (%) (Auto) 7.6 0.0-12.0 % Eosinophils (%) (Auto) 1.7 0.0-7.0 % Basophils (%) (Auto) 0.4 0.0-2.0 % Neutrophils # (Auto) 5.4 1.6-8.6 10 ^3/uL Lymphocytes # (Auto) 0.7 0.4-5.4 10 ^3/uL Monocytes # (Auto) 0.5 0-1.3 10 ^3/uL Eosinophils # (Auto) 0.1 0-0.8 10 ^3/uL Basophils # (Auto) 0 0-0.2 10 ^3/uL Nucleated Red Blood Cells 0.0 % Sodium Level 140 136-145 mmol/L Potassium Level 4.0 3.5-5.1 mmol/L Chloride Level 107 98-107 mmol/L Carbon Dioxide Level 22 20-31 mmol/L Anion Gap 11 5-15 Blood Urea Nitrogen 16 9-23 mg/dL Creatinine 1.60 H 0.700-1.30 mg/dL Glomerular Filtration Rate Calc 47 >90 mL/min BUN/Creatinine Ratio 10.0 10.0-20.0 Serum Glucose 172 H 74-106 mg/dL Calcium Level 9.9 8.7-10.4 mg/dL Total Bilirubin 1.3 H 0.2-1.0 mg/dL Aspartate Amino Transferase (AST) 22 13-40 U/L Alanine Aminotransferase (ALT) 19 7-40 U/L Alkaline Phosphatase 105 46-116 U/L Total Protein 6.7 5.7-8.2 g/dL Albumin 4.3 3.2-4.8 g/dL Lipase 29 12-53 U/L Current Medications Medications (Trade) Dose Ordered Sig/Domo Route Start Time Stop Time Status Last Admin Ondansetron HCl (Zofran) 4 mg ONCE ONCE IV 01/19/25 01:45 01/19/25 01:47 DC 01/19/25 02:33 Pantoprazole Sodium (Protonix) 40 mg ONCE ONCE IV 01/19/25 01:45 01/19/25 01:47 DC 01/19/25 02:34 Morphine Sulfate 4 mg ONCE ONCE IV 01/19/25 01:45 01/19/25 01:47 DC 01/19/25 02:34 Hydralazine HCl (Apresoline Injection) 20 mg ONCE ONCE IV 01/19/25 03:30 01/19/25 03:31 DC 01/19/25 03:30 Time of 1ST Reevaluation: 02:04 Reevaluation 1ST: Unchanged Patient Education/Counseling: Diagnosis, Treatment Family Education/Counseling: No Family Present Departure 1 Departure Time of Disposition: 04:38 (Patient presented with hypertension and symptoms concerning for hypertensive emergency. Patient is receiving iv blood pressure medications requiring intensive monitoring. Data: 1. I ordered and reviewed the result of at least 3 labs including a CBC, BMP, and Urinalysis. 2. I independently interpreted the following tests: CT Brain: Which appears benign. EKG which is Normal Sinus RhythmRisk:This patient has a high risk of morbidity due to further diagnostic testing or treatment and may suffer from an acute cardiac disorder. Workup reveals hypertensive emergency and patient should be admitted for further workup. and possible expert consultation. ) Impression: Primary Impression: Hypertensive emergency Additional Impression: Acute chest pain Disposition: ADMITTED INPATIENT Admit to: Med Surg Condition: Serious Critical Care Note Critical Care Time?: Yes (35 min-critical care time only) Critical care comment: Active chest pains Authorized and Performed by: Krystle Templeton MD Total critical care time: Approximately 39 minutes Due to a high probability of clinically significant, life threatening deterio ration, the patient required my highest level of preparedness to intervene emergently and I personally spent this critical care time directly and personally managing the patient. This critical care time included obtaining a history; examining the patient; pulse oximetry; ordering and review of studies; arranging urgent treatment with development of a management plan; evaluation of patient's response to treatment; frequent reassessment; and, discussions with other providers. This critical care time was performed to assess and manage the high probability of imminent, life-threatening deterioration that could result in multi-organ failure. It was exclusive of separately billable procedures and treating other patients and teaching time. Please see my other sections and the rest of the note for further information on patient assessment and treatment. Stability Stability form required: No Heart Score Heart Score: Heart Score Response (Comments) Value History Moderate Suspicious 1 EKG Repolarization Disturb 1 Age >65 2 Risk Factors >3 or Hx ASHD 2 Troponin Normal limit 0 Total 6 I personally scribed for KRYSTLE TEMPLETON MD ([email or web address]) on 01/19/25 at 02:11. Electronically submitted by Zan Han ([email or web address]). KRYSTLE TEMPLETON MD Jan 19, 2025 02:11
--- NOTE | 2025-01-19 02:19 | DVH ---
CHEST RADIOGRAPH Indication: chest pain Technique: Single frontal view of the chest was obtained COMPARISON: XY CHEST PORTABLE on DOS: 06/03/23, XY CHEST XRAY 1 VIEW on DOS: 05/30/23, XY CHEST PORTABLE on DOS: 05/17/23, XY CHEST PORTABLE on DOS: 05/10/23, XY CHEST PORTABLE on DOS: 05/05/23 FINDINGS: Lines and Tubes: None Lungs: Diffuse increased prominence of the pulmonary vasculature without evidence of focal consolidat ion. Pleura: No effusion. No pneumothorax. Cardiomediastinal contours: Unremarkable Bones: Unremarkable IMPRESSION: 1. Diffuse increased prominence of the pulmonary vasculature.
[2025-01-19 02:30] LABS: Alanine Aminotransferase 19 U/L (7-40); Alkaline Phosphatase 105 U/L (46-116); Anion Gap 11 (5-15); Aspartate Aminotransferase 22 U/L (13-40); Blood Urea Nitrogen 16 mg/dL (9-23); Calcium 9.9 mg/dL (8.7-10.4); Carbon Dioxide 22 mmol/L (20-31); Lipase 29 U/L (12-53); Sodium 140 mmol/L (136-145); Total Protein 6.7 g/dL (5.7-8.2)
[2025-01-19 02:31] LABS: Albumin 4.3 g/dL (3.2-4.8)
[2025-01-19] MEDS: ONDANSETRON HCL 4 MG/2 ML VIAL IV ONE (02:33)
[2025-01-19] MEDS: SODIUM CHLORIDE 0.9% 1,000 ML IV ONE (02:33)
[2025-01-19] MEDS: PANTOPRAZOLE 40 MG/10 ML VIAL INJ IV ONE (02:34)
[2025-01-19] MEDS: MORPHINE SULFATE 4 MG/ML SYR/VIAL IV ONE (02:34)
[2025-01-19 03:18] LABS: Bilirubin, Total 1.3 mg/dL (0.2-1.0); Chloride 107 mmol/L (98-107); Glucose 172 mg/dL (74-106)
[2025-01-19] MEDS: hydrALAZINE HCL 20 MG/ML VL IV ONE (03:30)
--- NOTE | 2025-01-19 03:58 | DVH ---
EXAM: CT HEAD WITHOUT CONTRAST INDICATION: htn emergency TECHNIQUE: CT of the head without intravenous contrast. Radiation Dose : 1. Head: CT Dose: CTDI volume is 121.33 mGy. Dose-length product is 2387.58 mGy*cm The dose indicators for CT are the volume Computed Tomography (CT) Dose Index (CTDIvol) and the Dose Length Product (DLP), and are measured in units of mGy and mGy-cm, respectively. These indicators are not patient dose, but values generated from the CT scanner acquisition factors. The report includes radiation exposure data for exposures received during this examination. COMPARISON: CT HEAD WITHOUT CONTRAST on DOS: 05/23/23, CT HEAD WITHOUT CONTRAST on DOS: 05/17/23, CT HE AD WITHOUT CONTRAST on DOS: 05/06/23, CT HEAD WITHOUT CONTRAST on DOS: 05/05/23, HEAD WITHOUT CONTRAST on DOS: 11/12/20 FINDINGS: There is no evidence of acute intracranial hemorrhage, extra-axial collection, mass effect, midline s hift, herniation or hydrocephalus. Chronic appearing lacunar infarcts within the left putamen and anterior limb of the right internal ca psule redemonstrated. Moderate diffuse atrophic cortical volume loss. The preciado-white differentiation is intact. Moderate confluence periventricular and subcortical white matter hypoattenuation is likely related to small vessel ischemic disease. Mild diffuse paranasal sinus mucosal thickening. The mastoid air cells are clear. Atherosclerotic vascular calcifications identified within the vessels of the skull base. The surrounding soft tissues and osseous structures are unremarkable with remote right frontotemporal craniotomy postsurgical changes noted.. IMPRESSION: 1. No acute intracranial abnormality. 2. Sequela of microvascular disease, chronic lacunar infarcts and atrophic cortical volume loss. Radiation optimization: All CT scans at this facility use at least one of these dose optimization yumiko hniques: automated exposure control mA and/or kV adjustment per patient size (includes targeted exam s where dose is matched to clinical indication) or iterative reconstruction.
[2025-01-19] MEDS ORDERED: DEXTROSE (50%) 50ML SYRG IV PRN (05:00)
[2025-01-19] MEDS ORDERED: DOCUSATE SOD 100 MG CAP PO PRN (05:00)
[2025-01-19] MEDS ORDERED: ONDANSETRON HCL 4 MG/2 ML VIAL IV PRN (05:00)
[2025-01-19] MEDS ORDERED: ACETAMINOPHEN 325 MG TAB PO PRN (05:00)
[2025-01-19] MEDS ORDERED: NITROGLYCERIN 0.4 MG SL TAB SL PRN (05:00)
[2025-01-19] MEDS ORDERED: MORPHINE SULFATE INJ 2 MG/ml SYRG IV PRN (05:00)
[2025-01-19] MEDS ORDERED: ALBUTEROL SULF 2.5 MG/0.5ML(0.5%) NEB SOLN NEB PRN (05:15)
[2025-01-19] MEDS: SODIUM CHLOR 0.9% PF (SALINE LOCK) 10ML VIAL/SYR IV SCH (05:28)
[2025-01-19 05:30] LABS: Basophils # (auto) 0 10 ^3/uL (0-0.2); Basophils % (auto) 0.3 % (0.0-2.0); Eosinophils # (auto) 0.1 10 ^3/uL (0-0.8); Eosinophils % (auto) 1.7 % (0.0-7.0); Hematocrit 36.8 % (41.0-53.0); Hemoglobin 12.2 g/dL (13.5-17.5); Lymphocytes # (auto) 0.7 10 ^3/uL (0.4-5.4); Lymphocytes % (auto) 10.4 % (10.0-50.0); Mean Corpuscular Hgb Conc. 33.1 g/dL (32.0-36.0); Mean Corpuscular Volume 90.7 fL (80.0-100.0); Monocytes # (auto) 0.5 10 ^3/uL (0-1.3); Monocytes % (auto) 7.9 % (0.0-12.0); Neutrophils # (auto) 5.2 10 ^3/uL (1.6-8.6); Neutrophils % (auto) 79.7 % (37.0-80.0); Platelet Count (auto) 165 10^3/uL (140-450); Red Blood Cells 4.05 10^6/uL (4.5-5.90); Red Cell Distribution Width 15.5 % (11.8-14.3); White Blood Cell 6.5 10^3/uL (4.4-10.8)
[2025-01-19] MEDS: ASPirin 81 mg TAB PO ONE (05:30)
--- NOTE | 2025-01-19 05:30 | DVHHP2 ---
History of Present Illness Reason for Visit: Acute chest pain History of Present Illness The patient is a 69-year-old male with multiple past medical history including Coronary artery disease, CHF, DM, and hypertension who presented to [facility] ED with complaint of chest pain. Patient reports having substernal chest pain, radiates to the back, rating 7/10 numeric scale, associated shortness of breaths, getting worse that prompted this visit. Patient was seen and evaluated in the ED, laboratory data shows WBC 6.8, platelets 164, sodium 140, potassium 4.0, BUN 16, creatinine 1.60, GFR 47, glucose 172, lipase 29, troponin 44, blood pressure 204/97 trending down to 168/88, heart rate 92, temperature 98.6 F, O2 saturation 99% on oxygen. Chest x-ray revealing diffuse increased prominence of the pulmonary vasculature. Patient was given morphine sulfate 4 mg IV x1, IV hydralazine 20 mg x 1, please see medication orders section in the computer. On my assessment, patient denies chest pain at this moment, no headache, no dizziness, no diaphoresis, currently on oxygen, no nausea, no vomiting, no fever, no chills. Patient was admitted for further evaluation and medical management. Past Medical History CAD, CHF, CKF, CVA, DM, High Lipids, HTN, ND, Seizures Past Surgical History Denies all surgeries Family History Reviewed, noncontributory to the management of this case. Past Social History The patient lives at home, drinks alcohol occasionally, denies smoking or illicit drugs abuse. Review of Systems Constitutional: Yes: Weakness; No: Fever, Chills, Sweats, Malaise, Other Eyes: No: Pain, Vision change, Conjunctivae inflammation, Eyelid inflammation, Other, Redness ENT: No: Ear pain, Ear discharge, Nose pain, Nose discharge, Nose congestion, Mouth pain, Mouth swelling, Throat pain, Throat swelling, Other Respiratory: Shortness of breath, SOB with excertion; No: Cough, Dry, Wheezing, Hemoptysis, Pleuritic Pain, Sputum, Wheezing, Other Cardiovascular: Chest Pain; No: Palpitations, Orthopnea, Paroxysmal Noc. Dyspnea, Edema, Lt Headedness, Other Gastrointestinal: No: Nausea, Vomiting, Abdominal Pain, Diarrhea, Constipation, Melena, Hematochezia, Other Genitourinary: No Dysuria, No Frequency, No Incontinence, No Hematuria, No Retention, No Other Musculoskeletal: back pain; No: other, neck pain, shoulder pain, arm pain, hand pain, leg pain, foot pain Skin: No: Rash, Lesions, Jaundice, Bruising, Other Neurological: No: Weakness, Numbness, Incoordination, Change in speech, Confusion, Seizures, Other Allergies: Coded Allergies: No Known Drug Allergy (Verified Allergy, Unknown, 01/19/25) Exam Vital Signs Vital Signs Date Time Temp Pulse Resp B/P (MAP) Pulse Ox O2 Delivery O2 Flow Rate FiO2 01/19/25 04:00 94 01/19/25 04:00 98.6 20 168/88 (114) 100 98.6 General Appearance: Alert, Oriented X3, Cooperative, No acute distress HEENT: Atraumatic, PERRLA, EOMI, Mucous membr. moist/pink Respiratory: Normal air movement, Other (Congestion) Cardiovascular: Regular rate, Normal S1, Normal S2, No murmurs Abdominal: Normal bowel sounds, Soft, No tenderness, No hepatospenomegaly, No masses Extremities: No clubbing, No cyanosis, No edema, Normal pulses, No tenderness/swelling Skin: No rashes, No breakdown, No significant lesion Neuro: Normal speech, Normal tone, Sensation intact, Cranial nerves 3-12 NL, Reflexes 2+, Other (Generalized weakness) Psych/Mental Status: Mental status NL, Mood NL Labs/Xrays Labs Test 01/19/25 02:40 01/19/25 01:42 Range/Units Troponin I High Sensitivity 44 </=54 ng/L White Blood Count 6.8 4.4-10.8 10^3/uL Red Blood Count 3.90 L 4.5-5.90 10^6/uL Hemoglobin 12.1 L 13.5-17.5 g/dL Hematocrit 35.2 L 41.0-53.0 % Mean Corpuscular Volume 90.2 80.0-100.0 fL Mean Corpuscular Hemoglobin 31.1 28.0-32.0 pg Mean Corpuscular Hemoglobin Concent 34.5 32.0-36.0 g/dL Red Cell Distribution Width 15.1 H 11.8-14.3 % Platelet Count 164 140-450 10^3/uL Mean Platelet Volume 8.9 6.9-10.8 fL Neutrophils (%) (Auto) 79.7 37.0-80.0 % Lymphocytes (%) (Auto) 10.6 10.0-50.0 % Monocytes (%) (Auto) 7.6 0.0-12.0 % Eosinophils (%) (Auto) 1.7 0.0-7.0 % Basophils (%) (Auto) 0.4 0.0-2.0 % Neutrophils # (Auto) 5.4 1.6-8.6 10 ^3/uL Lymphocytes # (Auto) 0.7 0.4-5.4 10 ^3/uL Monocytes # (Auto) 0.5 0-1.3 10 ^3/uL Eosinophils # (Auto) 0.1 0-0.8 10 ^3/uL Basophils # (Auto) 0 0-0.2 10 ^3/uL Nucleated Red Blood Cells 0.0 % Sodium Level 140 136-145 mmol/L Potassium Level 4.0 3.5-5.1 mmol/L Chloride Level 107 98-107 mmol/L Carbon Dioxide Level 22 20-31 mmol/L Anion Gap 11 5-15 Blood Urea Nitrogen 16 9-23 mg/dL Creatinine 1.60 H 0.700-1.30 mg/dL Glomerular Filtration Rate Calc 47 >90 mL/min BUN/Creatinine Ratio 10.0 10.0-20.0 Serum Glucose 172 H 74-106 mg/dL Calcium Level 9.9 8.7-10.4 mg/dL Total Bilirubin 1.3 H 0.2-1.0 mg/dL Aspartate Amino Transferase (AST) 22 13-40 U/L Alanine Aminotransferase (ALT) 19 7-40 U/L Alkaline Phosphatase 105 46-116 U/L Total Protein 6.7 5.7-8.2 g/dL Albumin 4.3 3.2-4.8 g/dL Lipase 29 12-53 U/L PATIENT: YOGESH HOPE ACCT: [id number] UNIT: [id number] : 1955 LOC: ER ROOM / BED: / AGE / SEX: 69 / M ADM STATUS: REG ER SERVICE 0320 ORDERING PHYSICIAN: KRYSTLE MARTÍNEZ MD PROCEDURE(s): HWOCT - HEAD WITHOUT CONTRAST REASON: htn emergency ORDER NUMBER(s): [id number], ACCESSION NUMBER(s): [id number] EXAM: CT HEAD WITHOUT CONTRAST INDICATION: htn emergency TECHNIQUE: CT of the head without intravenous contrast. Radiation Dose: 1. Head: CT Dose: CTDI volume is 121.33 mGy. Dose-length product is 2387.58 mGy *cm The dose indicators for CT are the volume Computed Tomography (CT) Dose Index (CTDIvol) and the Dose Length Product (DLP), and are measured in units of mGy and mGy-cm, respectively. These indicators are not patient dose, but values generated from the CT scanner acquisition factors. The report includes radiation exposure data for exposures received during this examination. COMPARISON: CT HEAD WITHOUT CONTRAST on DOS: 05/23/23, CT HEAD WITHOUT CONTRAST on DOS: 05/17/23, CT HEAD WITHOUT CONTRAST on DOS: 05/06/23, CT HEAD WITHOUT CONTRAST on DOS: 05/05/23, HEAD WITHOUT CONTRAST on DOS: 11/12/20 FINDINGS: There is no evidence of acute intracranial hemorrhage, extra-axial collection, mass effect, midline shift, herniation or hydrocephalus. Chronic appearing lacunar infarcts within the left putamen and anterior limb of the right internal capsule redemonstrated. Moderate diffuse atrophic cortical volume loss. The preciado-white differentiation is intact. Moderate confluence periventricular and subcortical white matter hypoattenuation is likely related to small vessel ischemic disease. Mild diffuse paranasal sinus mucosal thickening. The mastoid air cells are clear. Atherosclerotic vascular calcifications identified within the vessels of the skull base. The surrounding soft tissues and osseous structures are unremarkable with remote right frontotemporal craniotomy postsurgical changes noted.. IMPRESSION: 1. No acute intracranial abnormality. 2. Sequela of microvascular disease, chronic lacunar infarcts and atrophic c ortical volume loss. ORDERING PHYSICIAN: KRYSTLE MARTÍNEZ MD PROCEDURE(s): CXRP - CHEST PORTABLE REASON: chest pain ORDER NUMBER(s): [id number], ACCESSION NUMBER(s): [id number] CHEST RADIOGRAPH Indication: chest pain Technique: Single frontal view of the chest was obtained COMPARISON: XY CHEST PORTABLE on DOS: 06/03/23, XY CHEST XRAY 1 VIEW on DOS: 05/30/23, XY CHEST PORTABLE on DOS: 05/17/23, XY CHEST PORTABLE on DOS: 05/10/23, XY CHEST PORTABLE on DOS: 05/05/23 FINDINGS: Lines and Tubes: None Lungs: Diffuse increased prominence of the pulmonary vasculature without evidence of focal consolidation. Pleura: No effusion. No pneumothorax. Cardiomediastinal contours: Unremarkable Bones: Unremarkable IMPRESSION: 1. Diffuse increased prominence of the pulmonary vasculature. Assessment/Plan Assessment/Plan Hypertensive urgency Acute chest pain Generalized weakness Diabetes mellitus with hyperglycemia Plan 1. Admit to telemetry unit 2. Breathing treatment 3. Pain control management 4. Management of fluids and electrolytes 5. Consultation for hospitalist 6. Diagnostic tests chest x-ray 7. DVT prophylaxis-on aspirin 8. Repeat labs CBC, CMP in a.m. 9. Continue with current medical management 10. Treatment plan discussed with patient and RN. Patient verbalized understanding. Plan discussed with: Patient, Other (RN) Problem List: (1) Hypertensive urgency (2) Acute chest pain (3) Generalized weakness (4) Diabetes mellitus with hyperglycemia Date of Service: Jan 19, 2025 Billing Provider: LUKE CHEUNG DNP Common Visit Codes: [id number] INP/OBS CARE (HIGH) LUKE CHEUNG DNP Jan 19, 2025 05:30
[2025-01-19 05:58] LABS: Alanine Aminotransferase 18 U/L (7-40); Alkaline Phosphatase 108 U/L (46-116); Anion Gap 11 (5-15); Aspartate Aminotransferase 21 U/L (13-40); BUN/Creatinine Ratio 10.1 (10.0-20.0); Blood Urea Nitrogen 16 mg/dL (9-23); Calcium 9.4 mg/dL (8.7-10.4); Carbon Dioxide 22 mmol/L (20-31); Chloride 105 mmol/L (98-107); Potassium 3.7 mmol/L (3.5-5.1); Sodium 138 mmol/L (136-145); Total Protein 6.7 g/dL (5.7-8.2)
[2025-01-19 05:59] LABS: Albumin 4.3 g/dL (3.2-4.8)
[2025-01-19 06:01] LABS: Bilirubin, Total 1.3 mg/dL (0.2-1.0); Glucose 127 mg/dL (74-106)
[2025-01-19] MEDS: hydrALAZINE HCL 20 MG/ML VL IV PRN (06:04)
[2025-01-19] MEDS: ACCU-CHEK COMFORT CURVE STRIP VI SCH (06:33)
[2025-01-19] MEDS: InsuLIN REG 1unit/0.01ml Soln (100units/ml) SC SCH (06:33)
[2025-01-19] MEDS: CARVEDILOL 12.5 MG TAB PO SCH (11:05)
[2025-01-19] MEDS: amLODIPine BESYLATE 5 MG TAB PO SCH (11:05)
[2025-01-19 11:56] LABS: LDL Cholesterol 65 mg/dL (< 100); Triglycerides 79 mg/dL (< 150)
[2025-01-19 11:58] LABS: Cholesterol 113 mg/dL (< 200); HDL Cholesterol 34 mg/dL (40-59)
[2025-01-19] MEDS ORDERED: TAMS0.4C39 PO (12:02)
[2025-01-19] MEDS ORDERED: MAGN400T6 PO (12:02)
[2025-01-19] MEDS ORDERED: ERGO1CAP12 PO (12:02)
[2025-01-19] MEDS: HYDROcodone-ACET 5/325MG TAB PO PRN (14:15)
[2025-01-19] MEDS: amLODIPine BESYLATE 5 MG TAB PO ONE (14:16)
[2025-01-19] MEDS: SPIRONOLACTONE 25 MG TAB PO ONE (14:16)
[2025-01-19] MEDS: FUROSEMIDE 40 MG/4 ML VIAL IV ONE (14:17)
--- NOTE | 2025-01-19 14:40 | DVHPNRES ---
Progress Note Date Seen: Jan 19, 2025 Resident Creating Document: NATHALIE CALIX RESIDENT Has the PT tested + for MRSA If YES, has PT been informed?: No Medical Necessity Reason Pt with a Central, PICC or Fol: No The following are medically ne: Alba Catheter Reason for alba catheter: Strict I&O Subjective Review of Systems The patient is a 69-year-old male with a complex and extensive medical history, including coronary artery disease (CAD) with prior myocardial infarction, heart failure with reduced ejection fraction (HFrEF, EF 25%), aortic regurgitation, chronic kidney disease (CKD), prior cerebrovascular accident (CVA) (one year ago), type 2 diabetes mellitus, hypertension, dyslipidemia, and uncontrolled seizures, who presented to the emergency department with complaints of shortness of breath and substernal chest pain. He describes the chest pain as aching, 7/10 in intensity, and radiating to the back. On physical exam, the patient appeared disoriented and confused, with impaired memory, suggestive of cognitive decline. He is also visually impaired and described episodes of imbalance and frequent falls at home. His family and clinical history suggest a progressive cognitive and functional deterioration over the last few months. Initial chest X-ray showed signs of pulmonary vascular congestion, raising concern for a CHF exacerbation. An echocardiogram has been ordered to assess cardiac function and valvular status. BNP level is pending. The patient was started on IV diuretics (Lasix) with cautious monitoring of renal function given the background of CKD and acute kidney injury (TR) on admission. Current medications include carvedilol, furosemide, spironolactone, aspirin, and Jardiance (empagliflozin). A alba catheter is in place for accurate I/Os, and electrolytes are being closely monitored. Blood pressure will be titrated per GDMT (Guideline-Directed Medical Therapy) for HFrEF. Cardiology consultation is under consideration for possible optimization of heart failure management. The patient remains hemodynamically stable but will require close observation, especially due to his cognitive decline, fall risk, and multiple organ system involvement. Review of Systems (ROS): Constitutional: Positive for fatigue and weakness. No fever or chills. Cardiovascular: Positive for chest pain, dyspnea on exertion. No palpitations or syncope reported. Respiratory: Shortness of breath, no cough or wheezing. GI: Denies nausea, vomiting, or abdominal pain. : Alba catheter in place. Urinary output adequate. Neuro: Positive for confusion, memory loss, and balance issues. No acute focal deficits. Endocrine: Poorly controlled diabetes, positive for non-healing wounds. Skin: Lower extremity wounds reported, likely diabetic ulcers. Musculoskeletal: Generalized weakness, high fall risk. Vision: Reports poor vision. Psych: Negative for acute anxiety or depression, but positive for cognitive decline. Patient reports: No new complaints Changes from previous H/P or p: No Changes Objective vital signs Vital Sign Date Time Temp Pulse Resp B/P (MAP) Pulse Ox O2 Delivery O2 Flow Rate FiO2 01/19/25 14:17 129/91 01/19/25 12:05 98 01/19/25 10:57 97.9 18 100 97.9 01/19/25 10:37 Nasal Cannula* 1 24 medications Current Medications Medications Dose Ordered Sig/Domo Route Start Time Stop Time Status Last Admin Dose Admin Carvedilol 12.5 mg Q12HR PO 01/19/25 10:00 01/19/25 11:05 12.5 MG Atorvastatin Calcium 20 mg HS PO 01/19/25 22:00 Aspirin 81 mg DAILY PO 01/20/25 10:00 Diagnostic Test (Pha) 1 strip ACHS 01/19/25 07:00 01/19/25 06:33 1 STRIP Insulin Human Regular ACHS SC 01/19/25 07:00 Dextrose 50 ml UD PRN IV 01/19/25 05:00 Sodium Chloride 10 ml Q8HR IV 01/19/25 06:00 01/19/25 14:17 10 ML Acetaminophen 650 mg Q6HP PRN PO 01/19/25 05:00 Morphine Sulfate 2 mg Q4HPRN PRN IV 01/19/25 05:00 Morphine Sulfate 2 mg Q30M PRN IV 01/19/25 05:00 Albuterol 2.5 mg Q4HPRN PRN NEB 01/19/25 05:15 Empaglifozin 10 mg DAILY PO 01/20/25 10:00 Spironolactone 25 mg DAILY PO 01/20/25 10:00 Examination Physical Exam: General: Elderly male, disoriented, appears older than stated age, in no acute distress but mildly lethargic. Vitals: BP elevated, HR regular, afebrile, oxygen saturation adequate on room air. HEENT: Pupils equal, sluggish reaction; poor visual tracking. Neck: No JVD, no cervical lymphadenopathy. Lungs: Bibasilar crackles, decreased breath sounds at bases. Cardiac: Irregular rhythm, systolic murmur at left sternal border; no rubs or gallops. Abdomen: Soft, non-tender, no hepatosplenomegaly. : Alba catheter in place, urine clear. Extremities: Trace bilateral edema, non-healing diabetic wounds noted on shins. Neuro: Alert but disoriented to time and place; decreased short-term memory. Moves all extremities; no gross focal deficit. Skin: Multiple lower extremity wounds with signs of chronicity, no acute infection. laboratory and microbiology Laboratory Tests 01/19/25 05:02 01/19/25 01:42 Test 01/19/25 05:02 Range/Units Serum Glucose 127 H 74-106 mg/dL Problem List/Assessment/Plan Problem List/Assessment/Plan #Acute hypoxic respiratory failure likely due to Acute decompensated heart failure preserved ejection fraction 55% #Pulmonary congestion - Admit to telemetry - treated with IV Lasix - GDMT - Alba catheter - Strict I&Os - Echocardiogram, pending - BNP - D-dimer #History of Coronary artery disease with history of [place] - Stable at present, on medical management #History of Chronic aortic regurgitation - Likely Contributing to volume overload #Questionable Type 2 diabetes mellitus -Hemoglobin A1c -Sliding scale insulin -Accu-Cheks #Chronic kidney disease with acute kidney injury due to VMN - Closely monitoring creatinine and electrolytes #Hypertension - To be managed with GDMT for HF #Dyslipidemia - Background risk factor for CAD # History of Cerebrovascular accident # chronic lacunar infarcts and atrophic cortical volume loss. - apixaban 5 p.o. b.i.d. #History of seizures - No current seizure activity, neuro follow-up may be needed #Cognitive impairment / dementia #Questionable vascular dementia - Progressive memory loss, disorientation, high fall risk #Vision loss (likely multifactorial diabetic retinopathy vs stroke) - monitor #Fall risk -Fall risk precautions Plan discussed with: Patient My Orders My Orders Orders - NATHALIE CALIX RESIDENT Procedure Category Date Status Time Echo 2d Mode Cardiac US 01/19/25 Logged DOP 11:16 Vitamin B12 LAB 01/19/25 In Process 11:19 Covid19 Antigen Anastacia LAB 01/19/25 Logged Rapid Influenza A&B LAB 3/23/25 Logged 11:22 Empagliflozin PHA 01/20/25 In Process (Jardiance) 10:00 Spironolactone PHA 01/20/25 In Process (Aldactone) 10:00 Insert Alba Catheter AUGIE 01/19/25 In Process 13:33 Strict I & O AUGIE 01/19/25 In Process 13:33 Date of Service: Jan 19, 2025 Billing Provider: DIXIE WAGNER MD Common Visit Codes: [id number] INP/OBS CARE(HIGH) NATHALIE CALIX RESIDENT Jan 19, 2025 14:40 DIXIE WAGNER MD Jan 20, 2025 10:23
--- NOTE | 2025-01-19 15:41 | DVHSR ---
APPROVED REPORT EXAM: Two-dimensional and M-mode echocardiogram with Doppler and color Doppler. Blood Pressure: 159/83 mmHg INDICATION HFREF RISK FACTORS Height: 66, Weight: 177 DIMENSIONS LVDd (3.8-5.7cm)LA (2D)4.3 (1.9-4.0cm)Aortic Root (2.0-3.7cm) EF (%) 44.0 (55-70%)Rt. Atrium4.0 (1.9-4.0cm)Asc. Aorta cm Mitral Valve MitralMitral Stenosis E wave1.22m/sMV Mean GR.mmHg A wave1.22m/sMV Peak GR.72mmHg E/A ratio1.02D MVAcm2 DECEL [id number] 1/2 Timems Aortic Valve Aortic ValveAortic Stenosis V10.75m/Lani Mean GR.5mmHg V21.51m/Lani Peak GR.9mmHg AI P 1/2 [id number] Tricuspid Valve TR Velocity2.75m/s [id number] Other Information Technically limited study due to body habitus and patient moving. Patient was non compliant during e xam. Conclusion Technically good study. Difficult acoustic windows. Limited views. Concentric LVH with left atrial enlargement. Valves appear to be structurally normal. Mild aortic sclerosis. Left ventricular systolic performance is preserved at 55-60% with normal RV function. Intra-atrial septum appears to be slightly aneurysmal. No evidence for atrial septal defect. Dopplers unremarkable. Trace aortic insufficiency. No pericardial effusion masses or vegetations.
[2025-01-19 17:05] LABS: COVID19 ANTIGEN SOFIA FIA NEGATIVE (NEGATIVE); Rapid Influenza A Negative (Negative); Rapid Influenza B Negative (Negative)
[2025-01-19] MEDS: MORPHINE SULFATE INJ 2 MG/ml SYRG IV PRN (17:43)
[2025-01-19] MEDS: ATORVASTATIN 20 MG TAB PO SCH (22:49)
[2025-01-19] MEDS: APIXABAN 5 MG TAB PO SCH (22:49)
[2025-01-20] VITALS (11 sets, daily range): BP systolic 123–161; BP diastolic 61–87; PULSE 67–84; RESP 17–22; TEMP 96.7–99.3; O2SAT 91–98
[2025-01-20] MEDS: SACUBITRIL-VALSARTAN 24mg/26mg TAB PO SCH (01:21)
[2025-01-20] MEDS: MELATONIN 5 MG TAB PO ONE (01:21)
[2025-01-20] MEDS: cloNIDine HCL 0.1 MG TAB PO ONE (04:35)
[2025-01-20 05:44] LABS: Basophils # (auto) 0 10 ^3/uL (0-0.2); Basophils % (auto) 0.2 % (0.0-2.0); Eosinophils # (auto) 0.1 10 ^3/uL (0-0.8); Eosinophils % (auto) 1.1 % (0.0-7.0); Hematocrit 35.7 % (41.0-53.0); Hemoglobin 12.2 g/dL (13.5-17.5); Lymphocytes # (auto) 0.7 10 ^3/uL (0.4-5.4); Lymphocytes % (auto) 8.8 % (10.0-50.0); Mean Corpuscular Hemoglobin 30.8 pg (28.0-32.0); Mean Corpuscular Hgb Conc. 34.2 g/dL (32.0-36.0); Mean Corpuscular Volume 90.1 fL (80.0-100.0); Monocytes # (auto) 0.8 10 ^3/uL (0-1.3); Monocytes % (auto) 9.8 % (0.0-12.0); Neutrophils # (auto) 6.7 10 ^3/uL (1.6-8.6); Neutrophils % (auto) 80.1 % (37.0-80.0); Platelet Count (auto) 189 10^3/uL (140-450); Red Blood Cells 3.96 10^6/uL (4.5-5.90); White Blood Cell 8.4 10^3/uL (4.4-10.8)
[2025-01-20 05:57] LABS: Alanine Aminotransferase 19 U/L (7-40); Albumin 4.4 g/dL (3.2-4.8); Alkaline Phosphatase 100 U/L (46-116); Anion Gap 12 (5-15); Aspartate Aminotransferase 21 U/L (13-40); BUN/Creatinine Ratio 11.2 (10.0-20.0); Blood Urea Nitrogen 18 mg/dL (9-23); Calcium 9.5 mg/dL (8.7-10.4); Carbon Dioxide 25 mmol/L (20-31); Chloride 99 mmol/L (98-107); Sodium 136 mmol/L (136-145); Total Protein 6.9 g/dL (5.7-8.2)
[2025-01-20 06:00] LABS: Bilirubin, Total 1.4 mg/dL (0.2-1.0); Glucose 116 mg/dL (74-106); Potassium 3.4 mmol/L (3.5-5.1)
[2025-01-20] MEDS: SPIRONOLACTONE 25 MG TAB PO SCH (09:32)
[2025-01-20] MEDS: POTASSIUM EFFERVESENT TAB 25 MEQ PO ONE (09:32)
[2025-01-20] MEDS: ASPirin 81 mg TAB PO SCH (09:33)
[2025-01-20] MEDS: EMPAGLIFLOZIN 10 MG TAB PO SCH (09:33)
[2025-01-20] MEDS ORDERED: amLODIPine BESYLATE 5 MG TAB PO SCH (10:00)
[2025-01-20] MEDS: FUROSEMIDE 20 MG/2 ML VIAL IV ONE (17:38)
[2025-01-20 18:03] LABS: INR 1.42 (0.9-1.15); Prothrombin Time 14.5 sec (9.3-11.8)
--- NOTE | 2025-01-20 18:33 | DVHPNRES ---
Progress Note Date Seen: Jan 20, 2025 Resident Creating Document: NATHALIE CALIX RESIDENT Has the PT tested + for MRSA If YES, has PT been informed?: No Medical Necessity Reason Pt with a Central, PICC or Fol: No The following are medically ne: Alba Catheter Reason for alba catheter: Strict I&O Subjective Review of Systems The patient is a 69-year-old male with a complex and extensive medical history, including coronary artery disease (CAD) with prior myocardial infarction, heart failure with reduced ejection fraction (HFrEF, EF 25%), aortic regurgitation, chronic kidney disease (CKD), prior cerebrovascular accident (CVA) (one year ago), type 2 diabetes mellitus, hypertension, dyslipidemia, and uncontrolled seizures, who presented to the emergency department with complaints of shortness of breath and substernal chest pain. He describes the chest pain as aching, 7/10 in intensity, and radiating to the back. On physical exam, the patient appeared disoriented and confused, with impaired memory, suggestive of cognitive decline. He is also visually impaired and described episodes of imbalance and frequent falls at home. His family and clinical history suggest a progressive cognitive and functional deterioration over the last few months. Initial chest X-ray showed signs of pulmonary vascular congestion, raising concern for a CHF exacerbation. Patient was examined at bedside, he seems to be confused, he his alert and oriented x1, clinical presentation raising concern of vascular dementia as cognitive duration was happening for the last 7 months family. Patient will be given melatonin to improve sleep quality. Review of Systems: HEENT:Normal, CVS:Normal, RESPIRATORY:Abnormal, GI:Normal, :Normal, MSK:Normal, NEURO:Abnormal Objective vital signs Vital Sign Date Time Temp Pulse Resp B/P (MAP) Pulse Ox O2 Delivery O2 Flow Rate FiO2 01/20/25 17:38 160/83 01/20/25 16:31 98.8 84 18 98 98.8 01/20/25 10:00 Room Air 0.0 01/20/25 10:00 21 Total Intake and Output 01/19/25 01/19/25 01/20/25 15:00 23:00 07:00 Intake Total 100 ml 300 ml 100 ml Output Total 1425 ml 1500 ml Balance 100 ml -1125 ml -1400 ml medications Current Medications Medications Dose Ordered Sig/Domo Route Start Time Stop Time Status Last Admin Dose Admin Carvedilol 12.5 mg Q12HR PO 01/19/25 10:00 01/20/25 09:32 12.5 MG Atorvastatin Calcium 20 mg HS PO 01/19/25 22:00 01/19/25 22:49 20 MG Aspirin 81 mg DAILY PO 01/20/25 10:00 01/20/25 09:33 81 MG Diagnostic Test (Pha) 1 strip ACHS 01/19/25 07:00 01/20/25 17:38 1 STRIP Insulin Human Regular ACHS SC 01/19/25 07:00 01/20/25 06:22 2 UNITS Dextrose 50 ml UD PRN IV 01/19/25 05:00 Sodium Chloride 10 ml Q8HR IV 01/19/25 06:00 01/20/25 13:55 10 ML Acetaminophen 650 mg Q6HP PRN PO 01/19/25 05:00 Morphine Sulfate 2 mg Q4HPRN PRN IV 01/19/25 05:00 01/19/25 22:55 2 MG Morphine Sulfate 2 mg Q30M PRN IV 01/19/25 05:00 Albuterol 2.5 mg Q4HPRN PRN NEB 01/19/25 05:15 Empaglifozin 10 mg DAILY PO 01/20/25 10:00 01/20/25 09:33 10 MG Spironolactone 25 mg DAILY PO 01/20/25 10:00 01/20/25 09:32 25 MG Apixaban 5 mg BID PO 01/19/25 22:00 01/20/25 09:32 5 MG Sacubitril/ Valsartan 0.5 tab BID PO 01/20/25 01:15 01/20/25 09:34 0.5 TAB Melatonin 10 mg HS PO 01/20/25 22:00 Furosemide 20 mg DAILY IV 01/21/25 10:00 Examination: GENERAL:Abnormal, HEENT:Normal, NECK:Normal, LUNGS:Normal, CVS:Normal, ABDOMEN:Normal, MSK:Normal, SKIN:Normal, NEURO:Abnormal, :Normal laboratory and microbiology Laboratory Tests 01/20/25 04:33 Test 01/20/25 04:33 Range/Units Serum Glucose 116 H 74-106 mg/dL Problem List/Assessment/Plan Problem List/Assessment/Plan #Acute hypoxic respiratory failure likely due to Acute decompensated heart failure preserved ejection fraction 55% #Pulmonary congestion - Admit to telemetry - treated with IV Lasix - GDMT - Alba catheter - Strict I&Os - Echocardiogram, pending - BNP - Hydralazine PRN - Melatonin #History of Coronary artery disease with history of [place] - Stable at present, on medical management #History of Chronic aortic regurgitation - Likely Contributing to volume overload #Questionable Type 2 diabetes mellitus -Hemoglobin A1c -Sliding scale insulin -Accu-Cheks #Chronic kidney disease with acute kidney injury due to VMN - Closely monitoring creatinine and electrolytes #Hypertension - To be managed with GDMT for HF #Dyslipidemia - Background risk factor for CAD # History of Cerebrovascular accident # chronic lacunar infarcts and atrophic cortical volume loss. - apixaban 5 p.o. b.i.d. #History of seizures - No current seizure activity, neuro follow-up may be needed #Cognitive impairment / dementia #Likely vascular dementia - Progressive memory loss, disorientation, high fall risk #Vision loss (likely multifactorial diabetic retinopathy vs stroke) - monitor #Fall risk -Fall risk precautions Case discussed with Dr. López Goals of care discussed with the patient for 31 minutes Code status: Full code Plan discussed with: Patient, Daughter My Orders My Orders Orders - NATHALIE CALIX Procedure Category Date Status Time Melatonin (Melatonin) PHA 01/20/25 In Process 22:00 Urinalysis LAB 01/20/25 Uncollected 15:54 Prothrombin Time W/ LAB 01/20/25 In Process INR 16:19 Furosemide Injection PHA 01/21/25 In Process (Lasix Injection) 10:00 Date of Service: Jan 20, 2025 Billing Provider: DIXIE LÓPEZ MD Common Visit Codes: [id number] INP/OBS CARE(HIGH) NATHALIE CALIX RESIDENT Jan 20, 2025 18:33 DIXIE LÓPEZ MD Jan 21, 2025 14:48
[2025-01-20] MEDS ORDERED: hydrALAZINE HCL 20 MG/ML VL IV PRN (20:30)
[2025-01-20] MEDS: MELATONIN 5 MG TAB PO SCH (21:47)
[2025-01-20 21:50] LABS: Urine Bacteria FEW /hpf (None Seen); Urine Blood 3+ /uL (Negative); Urine Clarity Clear (Clear); Urine Color Colorless (Yellow); Urine Protein, UAD Negative (Negative); Urine Specific Gravity 1.004 (1.001-1.035); Urine Squamous Epithelial Cell FEW /hpf (<5); Urine Urobilinogen Normal (Negative); Urine WBC 21 /HPF (0-3); Urine pH 5.5 (5.0-9.0)
[2025-01-21] VITALS (10 sets, daily range): BP systolic 97–141; BP diastolic 54–72; PULSE 72–87; RESP 15–20; TEMP 97.5–98.7; O2SAT 18–97
[2025-01-21 06:06] LABS: Basophils # (auto) 0 10 ^3/uL (0-0.2); Basophils % (auto) 0.3 % (0.0-2.0); Eosinophils # (auto) 0.1 10 ^3/uL (0-0.8); Eosinophils % (auto) 1.5 % (0.0-7.0); Hematocrit 35.8 % (41.0-53.0); Hemoglobin 12.1 g/dL (13.5-17.5); Lymphocytes # (auto) 0.8 10 ^3/uL (0.4-5.4); Lymphocytes % (auto) 12.8 % (10.0-50.0); Mean Corpuscular Hemoglobin 30.1 pg (28.0-32.0); Mean Corpuscular Hgb Conc. 33.8 g/dL (32.0-36.0); Monocytes # (auto) 0.8 10 ^3/uL (0-1.3); Monocytes % (auto) 12.4 % (0.0-12.0); Neutrophils # (auto) 4.5 10 ^3/uL (1.6-8.6); Platelet Count (auto) 162 10^3/uL (140-450); Red Blood Cells 4.03 10^6/uL (4.5-5.90); White Blood Cell 6.2 10^3/uL (4.4-10.8)
[2025-01-21 06:23] LABS: Anion Gap 10 (5-15); Carbon Dioxide 27 mmol/L (20-31); Chloride 103 mmol/L (98-107); Sodium 140 mmol/L (136-145)
[2025-01-21 06:24] LABS: Calcium 9.3 mg/dL (8.7-10.4)
[2025-01-21 06:26] LABS: Potassium 3.4 mmol/L (3.5-5.1)
[2025-01-21 06:28] LABS: Glucose 103 mg/dL (74-106)
[2025-01-21 06:29] LABS: BUN/Creatinine Ratio 12.9 (10.0-20.0); Blood Urea Nitrogen 21 mg/dL (9-23); Magnesium 1.9 mg/dL (1.6-2.6)
--- NOTE | 2025-01-21 08:50 | ECG ---
[facility] Test Date: 2025-01-19 Test Time: 01:40:30 Pat Name: YOGESH HOPE Department: er Room: [facility]0T B Gender: M Secondary English Teacher: lorenzo : 1955 Requested By: KRYSTLE MARTÍNEZ Order Number: [id number] Reading MD: Surendra Vazquez Measurements Intervals [place] Rate: 93 P: 72 VA: 188 QRS: 85 QRSD: 115 T: 103 QT: 397 QTc: 494 Interpretive Statements Sinus rhythm Probable left atrial enlargement Incomplete right bundle branch block LVH with secondary repolarization abnormality Borderline prolonged QT interval Electronically Signed On 01-23-2025 13:19:12 PDT by Surendra Vazquez Please click the below link to view image of tracing.
[2025-01-21] MEDS: FUROSEMIDE 20 MG/2 ML VIAL IV SCH (09:12)
[2025-01-21] MEDS: cefTRIAXone 1GM/50ML D5W 50 ML IV ONE (12:01)
--- NOTE | 2025-01-21 17:56 | DVHPNRES ---
Progress Note Date Seen: Jan 21, 2025 Resident Creating Document: NATHALIE CALIX RESIDENT Has the PT tested + for MRSA If YES, has PT been informed?: No Medical Necessity Reason Pt with a Central, PICC or Fol: No The following are medically ne: Alba Catheter Reason for alba catheter: Strict I&O Subjective Review of Systems Patient was examined at bedside, he is fully oriented x3, because of the episodes of disorientation he has a history neurology was consulted, still pending. Started on ceftriaxone for urinary tract infection, and he will continue furosemide for gentle diuresis. Review of Systems: HEENT:Normal, CVS:Normal, RESPIRATORY:Normal, GI:Normal, :Normal, MSK:Normal, NEURO:Normal Objective vital signs Vital Sign Date Time Temp Pulse Resp B/P (MAP) Pulse Ox O2 Delivery O2 Flow Rate FiO2 01/21/25 17:00 98.2 77 19 141/71 (94) 94 98.2 01/21/25 08:00 Room Air* 0 21 Total Intake and Output 01/20/25 01/20/25 01/21/25 15:00 23:00 07:00 Intake Total 860 ml 300 ml Output Total 600 ml 2775 ml Balance 260 ml -2475 ml medications Current Medications Medications Dose Ordered Sig/Domo Route Start Time Stop Time Status Last Admin Dose Admin Carvedilol 12.5 mg Q12HR PO 01/19/25 10:00 01/21/25 09:11 12.5 MG Atorvastatin Calcium 20 mg HS PO 01/19/25 22:00 01/20/25 21:51 20 MG Aspirin 81 mg DAILY PO 01/20/25 10:00 01/21/25 09:11 81 MG Diagnostic Test (Pha) 1 strip ACHS 01/19/25 07:00 01/21/25 12:08 1 STRIP Insulin Human Regular ACHS SC 01/19/25 07:00 01/20/25 06:22 2 UNITS Dextrose 50 ml UD PRN IV 01/19/25 05:00 Sodium Chloride 10 ml Q8HR IV 01/19/25 06:00 01/21/25 12:09 10 ML Acetaminophen 650 mg Q6HP PRN PO 01/19/25 05:00 Morphine Sulfate 2 mg Q4HPRN PRN IV 01/19/25 05:00 01/19/25 22:55 2 MG Morphine Sulfate 2 mg Q30M PRN IV 01/19/25 05:00 Empaglifozin 10 mg DAILY PO 01/20/25 10:00 01/21/25 09:12 10 MG Spironolactone 25 mg DAILY PO 01/20/25 10:00 01/21/25 09:12 25 MG Apixaban 5 mg BID PO 01/19/25 22:00 01/21/25 09:11 5 MG Sacubitril/ Valsartan 0.5 tab BID PO 01/20/25 01:15 01/21/25 09:12 0.5 TAB Melatonin 10 mg HS PO 01/20/25 22:00 01/20/25 21:47 10 MG Furosemide 20 mg DAILY IV 01/21/25 10:00 01/21/25 09:12 20 MG Hydralazine HCl 10 mg Q6HP PRN IV 01/20/25 20:30 Ceftriaxone Sodium 50 ml @ 100 mls/hr DAILY@ IV 01/22/25 09:00 Examination: GENERAL:Normal, HEENT:Normal, NECK:Normal, LUNGS:Normal, CVS:Normal, ABDOMEN:Normal, MSK:Normal, SKIN:Normal, NEURO:Normal, :Normal laboratory and microbiology Laboratory Tests 01/21/25 05:40 Test 01/21/25 05:40 Range/Units Serum Glucose 103 74-106 mg/dL Problem List/Assessment/Plan Problem List/Assessment/Plan #Acute hypoxic respiratory failure likely due to Acute decompensated heart failure preserved ejection fraction 55% #Pulmonary congestion - Admit to telemetry - treated with IV Lasix - GDMT - Alba catheter - Strict I&Os - Echocardiogram, pending - BNP - Hydralazine PRN - Melatonin #History of Coronary artery disease with history of NH - Stable at present, on medical management #History of Chronic aortic regurgitation - Likely Contributing to volume overload #Questionable Type 2 diabetes mellitus -Hemoglobin A1c -Sliding scale insulin -Accu-Cheks #Chronic kidney disease with acute kidney injury due to VMN - Closely monitoring creatinine and electrolytes #Hypertension - To be managed with GDMT for HF #Dyslipidemia - Background risk factor for CAD # History of Cerebrovascular accident # chronic lacunar infarcts and atrophic cortical volume loss. - apixaban 5 p.o. b.i.d. #History of seizures - No current seizure activity, neuro follow-up may be needed #Cognitive impairment / dementia #Likely vascular dementia - Progressive memory loss, disorientation, high fall risk #Vision loss (likely multifactorial diabetic retinopathy vs stroke) - monitor #Fall risk -Fall risk precautions Case discussed with Dr. López Goals of care discussed with the patient for 31 minutes Code status: Full code Plan discussed with: Patient My Orders My Orders Orders - NATHALIE CALIX RESIDENT Procedure Category Date Status Time Hydralazine Injection PHA 01/20/25 In Process (Apresoline Inject 20:30 Ceftriaxone 1gm/50ml PHA 01/22/25 In Process D5w (Rocephin) 09:00 Pt Request For Service PT 01/21/25 Logged 09:50 * Neurology Consult CONS 01/21/25 Transmitted 10:18 Date of Service: Jan 21, 2025 Billing Provider: DIXIE LÓPEZ MD Common Visit Codes: [id number] INP/OBS CARE(HIGH) NATHALIE CALIX RESIDENT Jan 21, 2025 17:56 DIXIE LÓPEZ MD Jan 23, 2025 13:49
[2025-01-21] MEDS ORDERED: MELATONIN 5 MG TAB PO SCH (22:00)
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
[2025-01-22] VITALS (8 sets, daily range): BP systolic 123–161; BP diastolic 58–76; PULSE 70–87; RESP 15–19; TEMP 97.5–98.6; O2SAT 92–97
[2025-01-22 07:22] LABS: Basophils # (auto) 0 10 ^3/uL (0-0.2); Basophils % (auto) 0.3 % (0.0-2.0); Eosinophils # (auto) 0.2 10 ^3/uL (0-0.8); Eosinophils % (auto) 2.8 % (0.0-7.0); Hematocrit 37.9 % (41.0-53.0); Hemoglobin 12.5 g/dL (13.5-17.5); Lymphocytes # (auto) 0.9 10 ^3/uL (0.4-5.4); Lymphocytes % (auto) 12.7 % (10.0-50.0); Mean Corpuscular Hemoglobin 29.8 pg (28.0-32.0); Mean Corpuscular Hgb Conc. 33.1 g/dL (32.0-36.0); Mean Corpuscular Volume 90.2 fL (80.0-100.0); Monocytes # (auto) 0.8 10 ^3/uL (0-1.3); Monocytes % (auto) 11.3 % (0.0-12.0); Neutrophils # (auto) 5.3 10 ^3/uL (1.6-8.6); Neutrophils % (auto) 72.9 % (37.0-80.0); Nucleated Red Blood Cells % 0.1 %; Platelet Count (auto) 190 10^3/uL (140-450); Red Cell Distribution Width 15.4 % (11.8-14.3); White Blood Cell 7.3 10^3/uL (4.4-10.8)
[2025-01-22 07:29] LABS: Anion Gap 10 (5-15); Carbon Dioxide 28 mmol/L (20-31); Chloride 102 mmol/L (98-107); Sodium 140 mmol/L (136-145)
[2025-01-22 07:31] LABS: Calcium 9.3 mg/dL (8.7-10.4)
[2025-01-22 07:35] LABS: Glucose 103 mg/dL (74-106)
[2025-01-22 07:56] LABS: BUN/Creatinine Ratio 14.8 (10.0-20.0)
[2025-01-22 08:04] LABS: Blood Urea Nitrogen 27 mg/dL (9-23)
[2025-01-22] MEDS: cefTRIAXone 1GM/50ML D5W 50 ML IV SCH (09:32)
--- NOTE | 2025-01-22 11:25 | DVHPN2 ---
Progress Note - Dictate Date Seen: Jan 22, 2025 Has the PT tested + for MRSA If YES, has PT been informed?: No Medical Necessity Reason Pt with a Central, PICC or Fol: No The following are medically ne: Alba Catheter Reason for alba catheter: Strict I&O Subjective Mr. Austin is a 65 years old right-handed gentleman with a history of hypertension, diabetes, coronary artery disease, subdural hematoma, he came to the hospital on 01/19/2025 with a chief complaint of chest pain, but he was has other problems, and primary care team concerned about possible hydrocephalus. I saw him on 05/17/2020 for dizziness (MRI brain, 05/18/20: No acute abnormality), 05/05/2023 for acute stroke (MRI positive), 05/17/2023 for ALOC (MRI: bilateral acute strokes) I have seen and examined the patient, I have discussed with her nurse, other medical staff, and her primary care team. Per my observation, the patient is doing fine, able to walk with walker, he is oriented to person, place, he knows year, month and date. However his nurse and other medical staff has witnessed confusion him, including earlier this morning Persistent hematuria, stable H/H Urinalysis, 05/22/2025: WBC: 21, urine leukocyte esterase: Trace RPR, 05/05/2023: Nonreactive WBC/HB/PLT MCV, 01/21/2025: 6.2/12.1/162/89 PT/INR/PTT, 01/20/2025: 14.5/1.42 BUN/CR, 01/21/25: 21/1.63 HGB A1c, 01/19/2025, 5.7 TBI/AST/ALT/AP, 01/20/2025: 1.4/21//100 TG/HDL/LDL/HDL, 01/19/2025: 79/113/65/34 Vitamin B12, 04/2023: 2000, 01/21/2025: 4000 Folic acid, 04/2023: 19.17, TSH, 05/05/2023: 5 EEG, 05/05/2023: Mildly abnormal EEG, 05/19/2023: Mildly abnormal Carotid Doppler, 05/05/2023: 1. No hemodynamically significant stenosis noted in the right carotid system. 2. No hemodynamically significant stenosis noted in the left carotid system GABRIELA, 05/12/2023: No cardioembolic source Echocardiogram, 01/19/2025: Technically good study. Difficult acoustic windows. Limited views. Concentric LVH with left atrial enlargement. Valves appear to be structurally normal. Mild aortic sclerosis. Left ventricular systolic performance is preserved at 55-60% with normal RV function. Intra-atrial septum appears to be slightly aneurysmal. No evidence for atrial septal defect. Dopplers unremarkable. Trace aortic insufficiency. No pericardial effusion masses or vegetations. CT head, 05/05/2023: No acute intracranial abnormality CT head, 05/23/2023: No acute intracranial abnormality. CT head, 01/19/2025: 1. No acute intracranial abnormality. 2. Sequela of microvascular disease, chronic lacunar infarcts and atrophic cortical volume loss. (Chronic appearing lacunar infarcts within the left putamen and anterior limb of the right internal capsule redemonstrated. Moderate diffuse atrophic cortical volume loss) MRI head, 05/07/2023: 1. Nondiagnostic exam, evaluation is significantly limited given motion artifact and provided sequences. 2. If clinically indicated, consider repeat study when the patient is better able to tolerate the examinati MRI head, 05/08/2023: Punctate acute infarct left frontal lobe MRI brain, 05/12/2023: Punctate foci of restricted diffusion involving the left frontal lobe which appears stable.There are new foci of restricted diffusion involving the superior right frontal lobe. Given multiple vascular territories, embolic phenomenon not excluded MRI head, 05/18/2023: Unchanged punctate acute to subacute infarcts are present in the high left and high right frontal lobe MRI, left femur, 05/19/2023:Moderate to large suprapatellar joint effusion with complex nonenhancing component measuring 5.1 x 4.7 cm which may represent a loose body versus hematoma. Clinical correlation advised. Ultrasound could be obtained to further evaluate if clinically indicated. No bone marrow edema to suggest acute osteomyelitis MRI left knee, 05/19/23: Limited evaluation for septic arthritis without IV contrast. There is no evidence of abnormal bone marrow signal or subchondral erosion or subchondral edema. Large joint effusion with associated subcutaneous soft tissue edema. There is an isolated loculated collection in the suprapatellar knee joint which is only partially visualized on this study. Consider further evaluation with contrast-enhanced MRI at the level of the distal femur or ultrasound. Subtle increased signal within the biceps femoris muscle which may be due to muscle injury or superimposed infection such as myositis. MRI head 05/25/23: Motion limited study. Small focus of DWI hyperintense signal in the left frontoparietal region without definite correlate on the ADC map. Small focus of subacute ischemia cannot be excluded. No evidence of large territory infarct vital signs Vital Sign Date Time Temp Pulse Resp B/P (MAP) Pulse Ox O2 Delivery O2 Flow Rate FiO2 01/22/25 09:41 72 144/66 01/22/25 09:00 97.5 19 97 97.5 01/21/25 20:00 Nasal Cannula* 2 28 Total Intake and Output 01/21/25 01/21/25 01/22/25 15:00 23:00 07:00 Intake Total 50 ml 760 ml 200 ml Output Total 1600 ml 950 ml Balance 50 ml -840 ml -750 ml medications Current Medications Medications Dose Ordered Sig/Domo Route Start Time Stop Time Status Last Admin Dose Admin Carvedilol 12.5 mg Q12HR PO 01/19/25 10:00 01/22/25 09:41 12.5 MG Atorvastatin Calcium 20 mg HS PO 01/19/25 22:00 01/21/25 21:36 20 MG Aspirin 81 mg DAILY PO 01/20/25 10:00 01/22/25 09:44 81 MG Diagnostic Test (Pha) 1 strip ACHS 01/19/25 07:00 01/22/25 06:09 1 STRIP Insulin Human Regular ACHS SC 01/19/25 07:00 01/21/25 21:52 2 UNITS Dextrose 50 ml UD PRN IV 01/19/25 05:00 Sodium Chloride 10 ml Q8HR IV 01/19/25 06:00 01/22/25 06:09 10 ML Acetaminophen 650 mg Q6HP PRN PO 01/19/25 05:00 Morphine Sulfate 2 mg Q4HPRN PRN IV 01/19/25 05:00 01/22/25 03:59 2 MG Morphine Sulfate 2 mg Q30M PRN IV 01/19/25 05:00 Empaglifozin 10 mg DAILY PO 01/20/25 10:00 01/22/25 09:35 10 MG Spironolactone 25 mg DAILY PO 01/20/25 10:00 01/22/25 09:33 25 MG Apixaban 5 mg BID PO 01/19/25 22:00 01/22/25 09:35 5 MG Sacubitril/ Valsartan 0.5 tab BID PO 01/20/25 01:15 01/22/25 09:33 0.5 TAB Melatonin 10 mg HS PO 01/20/25 22:00 01/21/25 21:36 10 MG Furosemide 20 mg DAILY IV 01/21/25 10:00 01/22/25 09:34 20 MG Hydralazine HCl 10 mg Q6HP PRN IV 01/20/25 20:30 Ceftriaxone Sodium 50 ml @ 100 mls/hr DAILY@09 IV 01/22/25 09:00 01/22/25 09:32 100 MLS/HR objective General: the patient is well developed and nourished. No acute distress. MENTAL STATUS: Subjective SPEECH, LANGUAGE, HIGHER CORTICAL FUNCTION: no aphasia or dysathria. CRANIAL NERVES: Pupils are equal, round and reactive. EOMs full and conjugate. Facial sensation intact in all three divisions bilaterally. Mandibular strength intact. Facial muscles symmetrical and strength intact. SENSATION: Sensation to touch and pinprick is fine MOTOR: Normal tone in the upper and lower extremity. Normal muscle bulk. No fasciculations. No abnormal movements or posturing. He moves arms and legs, muscle power feels close to 5/5 REFLEXES: Deep tendon reflexes are symmetrical. No pathological reflexes. CEREBELLAR/COORDINATION: Deferred GAIT/STATION: Unsteady laboratory and microbiology Laboratory Tests 01/22/25 06:23 Test 01/22/25 06:23 Range/Units Serum Glucose 103 74-106 mg/dL Problem List Cognitive dysfunction, he likely has at least mild dementia Secondary to history of closed head injury, alcohol abuse ? Rule out Alzheimer's disease ? 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 Lipitor 20 mg daily Aspirin 81 mg daily daily Ativan for seizure breakthrough Consider preventive seizure treatment if he has more seizures Up to chair Physical therapy More recommendation per clinical course This medical document was created using an electronic medical record system with [employer] dictation system. Although this document has been carefully reviewed, there may still be some phonetic and typographical errors. These areas are purely typographical due to imperfections of the software programs, and do not reflect any compromise in the patient's medical care Prognosis poor Plan discussed with: Other Total Time (mins): 35 PHILLIP REDMOND MD Jan 22, 2025 11:25
--- NOTE | 2025-01-22 16:20 | DVHINCON2 ---
Date of service: Jan 22, 2025 Referring Physician Hospitalist Reason for Consultation Hematuria History of Present Illness 69-year-old male with multiple past medical history including Coronary artery disease, CHF, DM, and hypertension who presented to [facility] ED with complaint of chest pain. Patient reports having substernal chest pain, radiates to the back, rating 7/10 numeric scale, associated shortness of breaths, getting worse that prompted this visit. Patient was seen and evaluated in the ED, laboratory data shows WBC 6.8, platelets 164, sodium 140, potassium 4.0, BUN 16, creatinine 1.60, GFR 47, glucose 172, lipase 29, troponin 44, blood pressure 204/97 trending down to 168/88, heart rate 92, temperature 98.6 F, O2 saturation 99% on oxygen. Chest x-ray revealing diffuse increased prominence of the pulmonary vasculature. Patient was given morphine sulfate 4 mg IV x1, IV hydralazine 20 mg x 1, please see medication orders section in the computer. On my assessment, patient denies chest pain at this moment, no headache, no dizziness, no diaphoresis, currently on oxygen, no nausea, no vomiting, no fever, no chills. Patient was admitted for further evaluation and medical management. Alba catheter in place with gross hematuria noted. Eliquis on hold. Past Medical History CAD, CHF, CKF, CVA, DM, High Lipids, HTN, NV, Seizures Family History: Patient reports no known family medical history. Allergies: Coded Allergies: No Known Drug Allergy (Verified Allergy, Unknown, 01/19/25) Home Meds Active Scripts Sacubitril-Valsartan (Entresto 24-26 mg) 1 Tab Tab, 1 TAB PO DAILY for 30 Days, #30 TAB Prov:CHARLES MONTES 06/10/23 Apixaban Base (ELIQUIS) 5 Mg Tab, 5 MG PO BID for 30 Days, #60 TAB Prov:CHARLES MONTES 06/10/23 Atorvastatin Calcium (ATORVASTATIN CALCIUM) 20 Mg Tab, 20 MG PO HS for 30 Days, #30 TAB Prov:CHARLES MONTES 06/10/23 Carvedilol (COREG) 12.5 Mg Tab, 25 MG PO Q12HR for 30 Days, #120 TAB Prov:CHARLES MONTES 06/10/23 Clopidogrel Bisulfate (CLOPIDOGREL) 75 Mg Tab, 75 MG PO DAILY for 30 Days, #30 TAB Prov:CHARLES MONTES [facility] 06/10/23 Folic Acid (Folic Acid) 1 Mg Tab, 1 MG PO DAILY, #30 TAB Prov:PATRICE SAN MD 05/16/23 Reported Medications Ergocalciferol (Vitamin D) 50,000 Unit Cap, 1 CAP PO QWEEKLY 01/19/25 Tamsulosin Hcl (Tamsulosin Hcl) 0.4 Mg Cap, 1 CAP PO DAILY 01/19/25 Magnesium Oxide (Magnesium Oxide) 400 Mg Tab, 1 TAB PO DAILYPRN for DIFFICIENCY 01/19/25 Current Medications Current Medications Medications (Trade) Dose Ordered Sig/Domo Route PRN Reason Start Time Stop Time Status Last Admin Melatonin (Melatonin) 5 mg HS PO 01/21/25 22:00 01/20/25 16:10 DC Ceftriaxone Sodium 50 ml @ 100 mls/hr DAILY@09 IV 01/22/25 09:00 01/22/25 09:32 Review of Systems Constitutional: Yes: Weakness; No: Fever, Chills, Sweats, Malaise, Other Eyes: No: Pain, Vision change, Conjunctivae inflammation, Eyelid inflammation, Other, Redness ENT: No: Ear pain, Ear discharge, Nose pain, Nose discharge, Nose congestion, Mouth pain, Mouth swelling, Throat pain, Throat swelling, Other Respiratory: Shortness of breath, SOB with excertion; No: Cough, Dry, Wheezing, Hemoptysis, Pleuritic Pain, Sputum, Wheezing, Other Cardiovascular: Chest Pain; No: Palpitations, Orthopnea, Paroxysmal Noc. Dyspnea, Edema, Lt Headedness, Other Gastrointestinal: No: Nausea, Vomiting, Abdominal Pain, Diarrhea, Constipation, Melena, Hematochezia, Other Genitourinary: No Dysuria, No Frequency, No Incontinence, No Hematuria, No Retention, No Other Musculoskeletal: back pain; No: other, neck pain, shoulder pain, arm pain, hand pain, leg pain, foot pain Skin: No: Rash, Lesions, Jaundice, Bruising, Other Neurological: No: Weakness, Numbness, Incoordination, Change in speech, Confusion, Seizures, Other Allergies: Coded Allergies: No Known Drug Allergy (Verified Allergy, Unknown, 01/19/25) Vital Signs Vital Signs Date Time Temp Pulse Resp B/P (MAP) Pulse Ox O2 Delivery O2 Flow Rate FiO2 01/22/25 13:00 98.1 70 19 123/58 (79) 95 98.1 01/22/25 10:00 Room Air* 0 21 Physical Exam Exam Exam Vital Signs Vital Signs Date Time Temp Pulse Resp B/P (MAP) Pulse Ox O2 Delivery O2 Flow Rate FiO2 01/19/25 04:00 94 01/19/25 04:00 98.6 20 168/88 (114) 100 98.6 General Appearance: Alert, Oriented X3, Cooperative, No acute distress HEENT: Atraumatic, PERRLA, EOMI, Mucous membr. moist/pink Respiratory: Normal air movement, Other (Congestion) Cardiovascular: Regular rate, Normal S1, Normal S2, No murmurs Abdominal: Normal bowel sounds, Soft, No tenderness, No hepatospenomegaly, No masses : alba catheter in place with bloody urine Extremities: No clubbing, No cyanosis, No edema, Normal pulses, No tenderness/swelling Skin: No rashes, No breakdown, No significant lesion Neuro: Normal speech, Normal tone, Sensation intact, Cranial nerves 3-12 NL, Reflexes 2+, Other (Generalized weakness) Psych/Mental Status: Mental status NL, Mood NL Labs/Diagnostic Data Labs Test 01/22/25 06:23 01/22/25 05:33 01/21/25 05:40 01/20/25 22:00 Range/Units White Blood Count 7.3 4.4-10.8 10^3/uL Red Blood Count 4.20 L 4.5-5.90 10^6/uL Hemoglobin 12.5 L 13.5-17.5 g/dL Hematocrit 37.9 L 41.0-53.0 % Mean Corpuscular Volume 90.2 80.0-100.0 fL Mean Corpuscular Hemoglobin 29.8 28.0-32.0 pg Mean Corpuscular Hemoglobin Concent 33.1 32.0-36.0 g/dL Red Cell Distribution Width 15.4 H 11.8-14.3 % Platelet Count 190 140-450 10^3/uL Mean Platelet Volume 8.8 6.9-10.8 fL Neutrophils (%) (Auto) 72.9 37.0-80.0 % Lymphocytes (%) (Auto) 12.7 10.0-50.0 % Monocytes (%) (Auto) 11.3 0.0-12.0 % Eosinophils (%) (Auto) 2.8 0.0-7.0 % Basophils (%) (Auto) 0.3 0.0-2.0 % Neutrophils # (Auto) 5.3 1.6-8.6 10 ^3/uL Lymphocytes # (Auto) 0.9 0.4-5.4 10 ^3/uL Monocytes # (Auto) 0.8 0-1.3 10 ^3/uL Eosinophils # (Auto) 0.2 0-0.8 10 ^3/uL Basophils # (Auto) 0 0-0.2 10 ^3/uL Nucleated Red Blood Cells 0.1 % Sodium Level 140 136-145 mmol/L Potassium Level 4.0 3.5-5.1 mmol/L Chloride Level 102 98-107 mmol/L Carbon Dioxide Level 28 20-31 mmol/L Anion Gap 10 5-15 Blood Urea Nitrogen 27 H 9-23 mg/dL Creatinine 1.82 H 0.700-1.30 mg/dL Glomerular Filtration Rate Calc 40 >90 mL/min BUN/Creatinine Ratio 14.8 10.0-20.0 Serum Glucose 103 74-106 mg/dL Calcium Level 9.3 8.7-10.4 mg/dL POC Glucose 106 70-106 mg/dl Magnesium Level 1.9 1.6-2.6 mg/dL Vitamin B12 Level > 4000 H 211-911 pg/mL Urine Color Colorless Yellow Urine Clarity Clear Clear Urine pH 5.5 5.0-9.0 Urine Specific [place] 1.004 1.001-1.035 Urine Protein Negative Negative Urine Ketones Negative Negative Urine Blood 3+ H Negative /uL Urine Nitrite Negative Negative Urine Bilirubin Negative Negative Urine Urobilinogen Normal Negative mg/dL Urine Leukocyte Esterase Trace Negative /uL Urine RBC 155 0 - 3 /hpf Urine Microscopic WBC 21 H 0-3 /HPF Urine Squamous Epithelial Cells Few <5 /hpf Urine Bacteria Few H None Seen /hpf Urine Glucose 3+ H Normal mg/dL Test 01/20/25 17:33 01/20/25 04:33 01/19/25 16:24 01/19/25 16:15 Range/Units Prothrombin Time 14.5 H 9.3-11.8 sec Prothrombin Time INR 1.42 H 0.9-1.15 Total Bilirubin 1.4 H 0.2-1.0 mg/dL Aspartate Amino Transferase (AST) 21 13-40 U/L Alanine Aminotransferase (ALT) 19 7-40 U/L Alkaline Phosphatase 100 46-116 U/L Total Protein 6.9 5.7-8.2 g/dL Albumin 4.4 3.2-4.8 g/dL D-Dimer, Quantitative 1.39 H 0.0-0.49 mg/L FEU Influenza Type A Antigen Negative Negative Influenza Type B Antigen Negative Negative SARS-CoV-2 Antigen (Rapid) Negative NEGATIVE Test 01/19/25 05:02 01/19/25 01:42 Range/Units Hemoglobin A1c 5.7 <5.7 % A1C Troponin I High Sensitivity 49 </=54 ng/L B-Type Natriuretic Peptide > 5000.00 0-100 pg/mL Triglycerides Level 79 < 150 mg/dL Cholesterol Level 113 < 200 mg/dL LDL Cholesterol 65 < 100 mg/dL HDL Cholesterol 34 L 40-59 mg/dL Lipase 29 12-53 U/L Assessment CKD, creatinine 1.8 Hematuria with indwelling alba Plan/Recommendation CT Scan abd/pelvis NC PSA urine culture Plan discussed with: Patient, Other MER TRUJILLO MD Jan 22, 2025 16:20
--- NOTE | 2025-01-22 21:33 | DVHPNRES ---
Progress Note Date Seen: Jan 22, 2025 Resident Creating Document: NATHALIE CALIX RESIDENT Has the PT tested + for MRSA If YES, has PT been informed?: No Medical Necessity Reason Pt with a Central, PICC or Fol: No The following are medically ne: Alba Catheter Reason for alba catheter: Strict I&O Subjective Review of Systems Tajik-speaking patient who was examined at bedside, he reports no acute complaints he is fully oriented. Follow-up on imaging tests. Hematuria was noted in Alba catheter Urology was consulted, Neurology was consulted. Review of Systems: HEENT:Normal, CVS:Normal, RESPIRATORY:Normal, GI:Normal, :Normal, MSK:Normal, NEURO:Normal Objective vital signs Vital Sign Date Time Temp Pulse Resp B/P (MAP) Pulse Ox O2 Delivery O2 Flow Rate FiO2 01/22/25 21:00 98.6 79 15 133/60 (84) 95 98.6 01/22/25 10:00 Room Air* 0 21 Total Intake and Output 01/21/25 01/21/25 01/22/25 15:00 23:00 07:00 Intake Total 50 ml 760 ml 200 ml Output Total 1600 ml 950 ml Balance 50 ml -840 ml -750 ml medications Current Medications Medications Dose Ordered Sig/Domo Route Start Time Stop Time Status Last Admin Dose Admin Carvedilol 12.5 mg Q12HR PO 01/19/25 10:00 01/22/25 09:41 12.5 MG Atorvastatin Calcium 20 mg HS PO 01/19/25 22:00 01/21/25 21:36 20 MG Aspirin 81 mg DAILY PO 01/20/25 10:00 01/22/25 09:44 81 MG Diagnostic Test (Pha) 1 strip ACHS 01/19/25 07:00 01/22/25 17:00 1 STRIP Insulin Human Regular ACHS SC 01/19/25 07:00 01/21/25 21:52 2 UNITS Dextrose 50 ml UD PRN IV 01/19/25 05:00 Sodium Chloride 10 ml Q8HR IV 01/19/25 06:00 01/22/25 17:31 10 ML Acetaminophen 650 mg Q6HP PRN PO 01/19/25 05:00 Morphine Sulfate 2 mg Q4HPRN PRN IV 01/19/25 05:00 01/22/25 03:59 2 MG Morphine Sulfate 2 mg Q30M PRN IV 01/19/25 05:00 Empaglifozin 10 mg DAILY PO 01/20/25 10:00 01/22/25 09:35 10 MG Spironolactone 25 mg DAILY PO 01/20/25 10:00 01/22/25 09:33 25 MG Apixaban 5 mg BID PO 01/19/25 22:00 01/22/25 09:35 5 MG Sacubitril/ Valsartan 0.5 tab BID PO 01/20/25 01:15 01/22/25 09:33 0.5 TAB Melatonin 10 mg HS PO 01/20/25 22:00 01/21/25 21:36 10 MG Furosemide 20 mg DAILY IV 01/21/25 10:00 01/22/25 09:34 20 MG Hydralazine HCl 10 mg Q6HP PRN IV 01/20/25 20:30 Ceftriaxone Sodium 50 ml @ 100 mls/hr DAILY@09 IV 01/22/25 09:00 01/22/25 09:32 100 MLS/HR Examination: GENERAL:Normal, HEENT:Normal, NECK:Normal, LUNGS:Normal, CVS:Normal, ABDOMEN:Normal, MSK:Normal, SKIN:Normal, NEURO:Normal, :Abnormal laboratory and microbiology Laboratory Tests 01/22/25 06:23 Test 01/22/25 06:23 Range/Units Serum Glucose 103 74-106 mg/dL Problem List/Assessment/Plan Problem List/Assessment/Plan #Acute hypoxic respiratory failure likely due to Acute decompensated heart failure preserved ejection fraction 55% #Pulmonary congestion - Admit to telemetry - treated with IV Lasix - GDMT - Alba catheter - Strict I&Os - Echocardiogram, pending - BNP - Hydralazine PRN - Melatonin # three on Alba catheter - urology consultation - CT scan abdomen and pelvis without contrast #History of Coronary artery disease with history of VA - Stable at present, on medical management #History of Chronic aortic regurgitation - Likely Contributing to volume overload #Questionable Type 2 diabetes mellitus -Hemoglobin A1c -Sliding scale insulin -Accu-Cheks #Chronic kidney disease with acute kidney injury due to VMN - Closely monitoring creatinine and electrolytes #Hypertension - To be managed with GDMT for HF #Dyslipidemia - Background risk factor for CAD # History of Cerebrovascular accident # chronic lacunar infarcts and atrophic cortical volume loss. - apixaban 5 p.o. b.i.d. #History of seizures - No current seizure activity, neuro follow-up may be needed #Cognitive impairment / dementia #Likely vascular dementia - Progressive memory loss, disorientation, high fall risk #Vision loss (likely multifactorial diabetic retinopathy vs stroke) - monitor #Fall risk -Fall risk precautions Case discussed with Dr. López Goals of care discussed with the patient for 31 minutes Code status: Full code Plan discussed with: Patient My Orders My Orders Orders - NATHALIE CALIX Procedure Category Date Status Time Dietary NOTICE 01/22/25 Transmitted Recommendations 12:49 Dietary Evaluation Review Comments: 1) CCHO 75gm + renal specific 70gm protein 2) Refer S[employer] on DC 3) Continue current plan of care Expected Outcomes/Goals: Pt will meet >75% estimated needs Fu 3-5 days Date of Service: Jan 22, 2025 Billing Provider: DIXIE LÓPEZ MD Common Visit Codes: [id number] INP/OBS CARE(HIGH) NATHALIE CALIX RESIDENT Jan 22, 2025 21:33 DIXIE LÓPEZ MD Jan 24, 2025 11:12
[2025-01-23 01:00] VITALS: BP 134/60; PULSE 77; RESP 17; TEMP 98.9; O2SAT 93
--- NOTE | 2025-01-23 03:16 | DVH ---
Exam: CT CT AB PEL WO CON-NO ORAL OR IV History: gross hematuria Comparison Study: None Technique: Multidetector spiral CT of the abdomen was performed from lung bases to pubic symphysis. I maging was performed without IV contrast. Axial, coronal and sagittal multiplanar reformats were obta ined from the axial data set by the technologist. Radiation Dose : 1. Abdomen/Pelvis: CTDIvol 7.94 mGy, DLP 560.93 mGy*cm. Findings: Evaluation of solid organs is limited due to lack of intravenous contrast use. Lung Bases: Small bilateral pleural effusions, [id number]-left. Respiratory motion artifact o bscures detail. Normal heart size. Coronary arterial and aortic atherosclerotic vascular calcificati ons are noted. No pericardial effusion. Liver: The liver is normal in size. No focal lesions. Gallbladder and Biliary Tree: Unremarkable Spleen: Unremarkable Pancreas: The pancreas is grossly normal in appearance. Adrenal Glands: Unremarkable Kidneys: Kidneys are grossly normal without calculi or hydronephrosis. Mild multifocal bilateral kayla l cortical scarring noted. Bladder: Grossly unremarkable for degree of distention. Bowel: The stomach is grossly normal in appearance. Small bowel and colon are normal in caliber and d istribution. The appendix is normal. Ascites: Absent Lymphadenopathy: No mesenteric, retroperitoneal or periportal lymphadenopathy. Abdominal Wall and Mesentery: Unremarkable. Vasculature: The visualized abdominal aorta is normal in size and caliber. Extensive atherosclerotic vascular calcification noted throughout the abdominal aorta and major branching vessels. Evaluation o f abdominal and pelvic vessels is limited due to lack of intravenous contrast. Pelvic Organs: The prostate is moderately enlarged, measuring up to 5.4 cm in transverse dimension. F oley catheter and small gas collection noted within the collapsed urinary bladder. Musculoskeletal: No aggressive focal bony lesions, acute fractures or dislocation. IMPRESSION: 1. No acute abdominal or pelvic findings. 2. Small bilateral pleural effusions, [id number]-left. Radiation optimization: All CT scans at this facility use at least one of these dose optimization yumiko hniques: automated exposure control mA and/or kV adjustment per patient size (includes targeted exam s where dose is matched to clinical indication) or iterative reconstruction.
[2025-01-23 05:00] VITALS: BP 134/67; PULSE 83; RESP 17; TEMP 98; O2SAT 94
[2025-01-23 05:56] LABS: Basophils # (auto) 0 10 ^3/uL (0-0.2); Basophils % (auto) 0.3 % (0.0-2.0); Eosinophils # (auto) 0.2 10 ^3/uL (0-0.8); Eosinophils % (auto) 2.6 % (0.0-7.0); Hematocrit 37.4 % (41.0-53.0); Hemoglobin 12.4 g/dL (13.5-17.5); Lymphocytes # (auto) 1.1 10 ^3/uL (0.4-5.4); Lymphocytes % (auto) 12.5 % (10.0-50.0); Mean Corpuscular Hemoglobin 29.9 pg (28.0-32.0); Mean Corpuscular Hgb Conc. 33.2 g/dL (32.0-36.0); Monocytes # (auto) 0.9 10 ^3/uL (0-1.3); Monocytes % (auto) 10.7 % (0.0-12.0); Neutrophils # (auto) 6.3 10 ^3/uL (1.6-8.6); Neutrophils % (auto) 73.9 % (37.0-80.0); Nucleated Red Blood Cells % 0.1 %; Platelet Count (auto) 221 10^3/uL (140-450); Red Blood Cells 4.15 10^6/uL (4.5-5.90); Red Cell Distribution Width 15.2 % (11.8-14.3); White Blood Cell 8.5 10^3/uL (4.4-10.8)
[2025-01-23 06:10] LABS: Calcium 9.4 mg/dL (8.7-10.4); Chloride 104 mmol/L (98-107); Potassium 3.7 mmol/L (3.5-5.1); Sodium 140 mmol/L (136-145)
[2025-01-23 06:11] LABS: Anion Gap 10 (5-15); Carbon Dioxide 26 mmol/L (20-31)
[2025-01-23 06:16] LABS: BUN/Creatinine Ratio 17.3 (10.0-20.0); Glucose 104 mg/dL (74-106)
[2025-01-23 06:18] LABS: Blood Urea Nitrogen 28 mg/dL (9-23)
[2025-01-23 08:00] VITALS: PULSE 87
[2025-01-23 08:53] VITALS: BP 133/70; PULSE 80; RESP 18; TEMP 98.8; O2SAT 90
[2025-01-23 10:00] VITALS: O2SAT 90
[2025-01-23] MEDS ORDERED: ASPI-325 PO (11:27)
[2025-01-23] MEDS ORDERED: CEPH250C PO (11:35)
--- NOTE | 2025-01-23 11:36 | DVHDS2 ---
Discharge Summary Date of Admission Jan 19, 2025 at 04:52 Date of Discharge: Jan 23, 2025 Labs/Diagnostic Data: Laboratory Results Test 01/23/25 04:44 01/22/25 21:59 01/21/25 05:40 01/20/25 22:00 White Blood Count 8.5 10^3/uL (4.4-10.8) Red Blood Count 4.15 10^6/uL (4.5-5.90) Hemoglobin 12.4 g/dL (13.5-17.5) Hematocrit 37.4 % (41.0-53.0) Mean Corpuscular Volume 90.0 fL (80.0-100.0) Mean Corpuscular Hemoglobin 29.9 pg (28.0-32.0) Mean Corpuscular Hemoglobin Concent 33.2 g/dL (32.0-36.0) Red Cell Distribution Width 15.2 % (11.8-14.3) Platelet Count 221 10^3/uL (140-450) Mean Platelet Volume 8.7 fL (6.9-10.8) Neutrophils (%) (Auto) 73.9 % (37.0-80.0) Lymphocytes (%) (Auto) 12.5 % (10.0-50.0) Monocytes (%) (Auto) 10.7 % (0.0-12.0) Eosinophils (%) (Auto) 2.6 % (0.0-7.0) Basophils (%) (Auto) 0.3 % (0.0-2.0) Neutrophils # (Auto) 6.3 10 ^3/uL (1.6-8.6) Lymphocytes # (Auto) 1.1 10 ^3/uL (0.4-5.4) Monocytes # (Auto) 0.9 10 ^3/uL (0-1.3) Eosinophils # (Auto) 0.2 10 ^3/uL (0-0.8) Basophils # (Auto) 0 10 ^3/uL (0-0.2) Nucleated Red Blood Cells 0.1 % Sodium Level 140 mmol/L (136-145) Potassium Level 3.7 mmol/L (3.5-5.1) Chloride Level 104 mmol/L (98-107) Carbon Dioxide Level 26 mmol/L (20-31) Anion Gap 10 (5-15) Blood Urea Nitrogen 28 mg/dL (9-23) Creatinine 1.62 mg/dL (0.700-1.30) Glomerular Filtration Rate Calc 46 mL/min (>90) BUN/Creatinine Ratio 17.3 (10.0-20.0) Serum Glucose 104 mg/dL (74-106) Calcium Level 9.4 mg/dL (8.7-10.4) POC Glucose 171 mg/dl (70-106) Magnesium Level 1.9 mg/dL (1.6-2.6) Vitamin B12 Level > 4000 pg/mL (211-911) Urine Color Colorless (Yellow) Urine Clarity Clear (Clear) Urine pH 5.5 (5.0-9.0) Urine Specific [place] 1.004 (1.001-1.035) Urine Protein Negative (Negative) Urine Ketones Negative (Negative) Urine Blood 3+ /uL (Negative) Urine Nitrite Negative (Negative) Urine Bilirubin Negative (Negative) Urine Urobilinogen Normal mg/dL (Negative) Urine Leukocyte Esterase Trace /uL (Negative) Urine RBC 155 /hpf (0 - 3) Urine Microscopic WBC 21 /HPF (0-3) Urine Squamous Epithelial Cells Few /hpf (<5) Urine Bacteria Few /hpf (None Seen) Urine Glucose 3+ mg/dL (Normal) Test 01/20/25 17:33 01/20/25 04:33 01/19/25 16:24 01/19/25 16:15 Prothrombin Time 14.5 sec (9.3-11.8) Prothrombin Time INR 1.42 (0.9-1.15) Total Bilirubin 1.4 mg/dL (0.2-1.0) Aspartate Amino Transferase (AST) 21 U/L (13-40) Alanine Aminotransferase (ALT) 19 U/L (7-40) Alkaline Phosphatase 100 U/L (46-116) Total Protein 6.9 g/dL (5.7-8.2) Albumin 4.4 g/dL (3.2-4.8) D-Dimer, Quantitative 1.39 mg/L FEU (0.0-0.49) Influenza Type A Antigen Negative (Negative) Influenza Type B Antigen Negative (Negative) SARS-CoV-2 Antigen (Rapid) Negative (NEGATIVE) Test 01/19/25 05:02 01/19/25 01:42 Hemoglobin A1c 5.7 % A1C (<5.7) Troponin I High Sensitivity 49 ng/L (</=54) B-Type Natriuretic Peptide > 5000.00 pg/mL (0-100) Triglycerides Level 79 mg/dL (< 150) Cholesterol Level 113 mg/dL (< 200) LDL Cholesterol 65 mg/dL (< 100) HDL Cholesterol 34 mg/dL (40-59) Lipase 29 U/L (12-53) Other Laboratory Tests 01/23/25 04:44 Brief Hx & Hospital Course: 69 yo M with multiple comorbidities and prior stroke admitted for chest pain. on our assessment chest pain improved, however patients family wories his mental status is not on baseline. Questionable UTI, started on ceftriaxone. We had neurology consulted for concern of NPH. However seems like patient improves with family bedside. acute delirium workup done. Patient mental status imrpoved and to be discharged home on keflex follow up with urology for hematuria. dc with alba. Condition at Discharge: Good Final Diagnosis/Problems List #Acute hypoxic respiratory failure likely due to Acute decompensated heart failure preserved ejection fraction 55% #Pulmonary congestion # hematuria on Alba catheter #History of Coronary artery disease with history of AR #History of Chronic aortic regurgitation #Questionable Type 2 diabetes mellitus #Chronic kidney disease with acute kidney injury due to VMN #Hypertension #Dyslipidemia # History of Cerebrovascular accident # chronic lacunar infarcts and atrophic cortical volume loss. #History of seizures #Cognitive impairment / dementia #Likely vascular dementia #Vision loss (likely multifactorial diabetic retinopathy vs stroke) #Fall risk Discharge Disposition: Home Discharge Instruct/Medications Diet: Consistent carbohydrate, Cardiac 2g Na,low cholest Activity: No Restrictions, As Tolerated Follow Up/Referral: [email or web address] PCP neuro Medications: resume home meds 39 Discharge Statement: "Patient was advised to return to the ER or call 911 if any headaches, dizziness, shortness of breath, chest pain, abdominal pain, bleeding, fevers, or worsening of medical condition. Patient was counseled about treatment plan, medications, possible side effects, patientverbalized understanding. All questions were answered to the best of my ability. This discharge took greater then 30 minutes in planning, reviewing documentation, counseling the patient, and discussing with other team members." ASSESSMENT ASSESSMENT Assessment Date of Service: Jan 23, 2025 Billing Provider: DIXIE WAGNER MD Common Visit Codes: 65872-DSV/OBS DISCH DAY >30min DIXIE WAGNER MD Jan 23, 2025 11:36
== END 2025-01-23 13:18 | disposition home or self-care (01) | DRG 291 ==
LOC: ER 01:34 → OVERFLOW 04:52 → TELE-WESTW 09:20
PROVIDERS: ADMIT Student in an Organized Health Care Education/Training Program; ATTEND Student in an Organized Health Care Education/Training Program
DX: I13.0 Hypertensive heart and chronic kidney disease with heart failure and stage 1 through stage 4 chronic kidney disease, or unspecified chronic kidney disease (principal); I50.33 Acute on chronic diastolic (congestive) heart failure; J96.01 Acute respiratory failure with hypoxia; N17.0 Acute kidney failure with tubular necrosis; I16.1 Hypertensive emergency; E11.65 Type 2 diabetes mellitus with hyperglycemia; E78.5 Hyperlipidemia, unspecified; Z20.822 Contact with and (suspected) exposure to COVID-19; I25.10 Atherosclerotic heart disease of native coronary artery without angina pectoris; E11.22 Type 2 diabetes mellitus with diabetic chronic kidney disease; R31.0 Gross hematuria; N18.9 Chronic kidney disease, unspecified; F01.A0 Vascular dementia, mild, without behavioral disturbance, psychotic disturbance, mood disturbance, and anxiety; F17.200 Nicotine dependence, unspecified, uncomplicated; Z79.01 Long term (current) use of anticoagulants; Z79.2 Long term (current) use of antibiotics; Z79.02 Long term (current) use of antithrombotics/antiplatelets; Z95.1 Presence of aortocoronary bypass graft; Z91.81 History of falling; Z86.73 Personal history of transient ischemic attack (TIA), and cerebral infarction without residual deficits; Z79.899 Other long term (current) drug therapy; Z79.82 Long term (current) use of aspirin; I25.2 Old myocardial infarction
CPT/HCPCS: 36415; 70450; 71045; 74176; 80048; 80053; 80061; 81001; 82607; 82962; 83036; 83690; 83735; 83880; 84484; 85025; 85379; 85610; 87426; 87804; 93005; 93306; 96374; 96375; 97110; 97116; 97163; 99291; G0378; J1815; J2405; J2470